=== PATIENT | female | born 1950 | race Caucasian/White ===

== ENCOUNTER → 2022-05-26 08:40 | Outpatient (BNVA) | payer BC, SELFPAY | PROVIDERS: PCP Nurse Practitioner Family; Visit Provider Student in an Organized Health Care Education/Training Program | DX: Z13.89 Encounter for screening for other disorder (principal) ==

== ENCOUNTER 2022-05-26 09:28 | Outpatient (REF) | payer BC, SELFPAY ==
[2022-05-26 10:50] LABS: MANUAL DIFF FLAG NO
[2022-05-26 10:52] LABS: Basophils Absolute Auto 0.1 X10*3/uL (0.0-0.2); Basophils Percent Auto 0.6 % (0-2); Eosinophils Absolute Auto 0.1 X10*3/uL (0.0-0.4); Eosinophils Percent Auto 1.5 % (0-4); Hematocrit 35.1 % (37.0-47.0); Hemoglobin 11.3 g/dl (12.0-16.0); Imm Gran Abs Auto 0.02 X10*3/uL (0.00-0.03); Imm Gran Pct Auto 0.3 % (0.0-0.4); Lymphocytes Absolute Auto 1.2 X10*3/uL (1.2-4.9); Lymphocytes Percent Auto 15.6 % (20-40); Mean Corpuscular HGB Conc 32.2 g/dl (31.0-35.0); Mean Corpuscular Hemoglobin 28.2 pg (27.0-33.0); Mean Corpuscular Volume 87.5 fL (80.0-98.0); Mean Platelet Volume 11.2 fL (9.4-12.3); Monocytes Absolute Auto 0.5 X10*3/uL (0.1-1.2); Monocytes Percent Auto 6.9 % (2-11); Neutrophils Absolute Auto 5.9 x10*3/uL (2.0-8.3); Neutrophils Percent Auto 75.1 % (45-73); Platelet Count 207 X10*3/uL (160-400); Red Blood Count 4.01 X10*6/uL (4.20-5.50); Red Cell Distribution Width 14.2 % (11.0-16.0); White Blood Count 7.9 X10*3/uL (4.8-10.8)
[2022-05-26 11:36] LABS: Erythrocyte Sedimentation Rate 36 MM/HR (0-20)
[2022-05-26 12:29] LABS: Alanine Aminotransferase 12 U/L (0-31); Albumin Level 3.8 g/dL (3.5-5.0); Alkaline Phosphatase 40 U/L (39-117); Anion Gap 12 (12-20); Aspartate Amino Transferase 20 U/L (5-31); Bilirubin Total 0.5 mg/dL (0.0-1.0); Blood Urea Nitrogen 11 mg/dL (9-16); Calcium 9.3 mg/dL (8.4-10.2); Carbon Dioxide 27 mmol/L (22-29); Chloride 102 mmol/L (96-108); Estimated Glomerular Filt Rate > 60; Glucose Random 89 mg/dL (60-115); Potassium 4.4 mmol/L (3.3-5.1); Rheumatoid Factor 105.2 IU/mL (<15.0); Sodium 137 mmol/L (135-145); Total Protein 6.8 g/dL (6.5-8.0)
[2022-05-27 13:58] LABS: Cyclic Citrullinated Peptide >250 UNITS; IgA 282 mg/dL (70-320); IgG 1251 mg/dL (600-1540); IgM 176 mg/dL (50-300)
[2022-05-28 09:11] LABS: HBc Num1 0.13 S/CO (0.00-0.79); HBsAGNum1 0.31 S/CO (0.00-0.99); Hepatitis A Antibody IgM 0.24 Index (0-0.79); Hepatitis B Core Antibody Nonreactive (Nonreactive); Hepatitis B Surface Antigen Negative (Negative); ~HepC Num1 0.16 S/CO (0.00-0.79); ~Hepatitis A Antibody IgM Nonreactive (Nonreactive); ~Hepatitis B Surface Antibody NONREACTIVE (Nonreactive); ~Hepatitis C Antibody Nonreactive (Nonreactive)
[2022-05-28 18:44] LABS: Prot Elec - Albumin 3.7 g/dL (3.8-4.8); Prot Elec - Alpha1 0.4 g/dL (0.2-0.3); Prot Elec - Alpha2 0.7 g/dL (0.5-0.9); Prot Elec - Beta 1 0.4 g/dL (0.4-0.6); Prot Elec - Beta 2 0.3 g/dL (0.2-0.5); Prot Elec - Gamma 1.2 g/dL (0.8-1.7); Prot Elec - Total Protein 6.8 g/dL (6.1-8.1)
[2022-05-28 21:43] LABS: TS Negative Control Passed; TS Panel A 0; TS Panel B 0; TS Positive Control Passed; TSpotTB Negative (Negative)
== END 2022-05-26 09:29 | disposition home or self-care (01) ==
LOC: HO.10HDL 09:28
PROVIDERS: Visit Provider Student in an Organized Health Care Education/Training Program
DX: Z11.7 Encounter for testing for latent tuberculosis infection (principal); M06.9 Rheumatoid arthritis, unspecified; Z79.899 Other long term (current) drug therapy
CPT/HCPCS: 80053; 80220; 82784; 84165; 85025; 85652; 86140; 86200; 86334; 86431; 86481; 86704; 86706; 86709; 86803; 87340

== ENCOUNTER 2022-11-24 13:27 | Outpatient (AMB) | payer BC, SELFPAY ==
[2022-11-24 13:33] VITALS: BP 148/76; PULSE 86; TEMP 36.3; O2SAT 97; BMI 19.1
--- NOTE | 2022-11-24 13:33 | MHC.OFFVIS ---
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 Accompanied by: Self / Same As Patient Allergies acetaminophen [From Vicodin] Allergy (Mild, Verified 11/24/22 13:37) Nausea hydrocodone [From Vicodin] Allergy (Mild, Verified 11/24/22 13:37) Nausea Sulfa (Sulfonamide Antibiotics) Adverse Reaction (Mild, Verified 11/24/22 13:37) Rash Medication List - Last Reconciled 11/24/22 by Rajinder Atkinson MD hydroxychloroquine Take 1 tab once daily 5 days a week and 2 tabs daily 2 days a week leflunomide 20 mg PO DAILY losartan 50 mg PO DAILY sumatriptan succinate 100 mg PO DAILY PRN HPI HPI Comments History of Present Illness Details This is a 72-year-old female with seropositive erosive RA who presents for follow-up. Patient states that she is doing about the same overall. She got a pneumonia infection back in July, she was treated with antibiotics at home. Soon after she developed a flare of her RA and required a prednisone taper which gave her relief. Patient has not been taking hydroxychloroquine for the last 2 months, was waiting for refill. Patient states that her RA is doing about the same. Patient is working with her hands most days and gets aching and stiffness in her hands, she also has pain in her toes. Patient feels that over the last 2-3 years her left hand fingers have been slowly returning ulnarly. Initial history: This is a 72-year-old female with deforming RA presents for evaluation. 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 Patient states she was diagnosed with RA more than 10 years ago. She had been on Plaquenil for 10+ years. She was also started on sulfasalazine for years, she developed a rash, with unclear cause, sulfasalazine was discontinued. She was on methotrexate briefly, per patient discontinued due to side effects. She had been on leflunomide for many years. In 2014 patient came off her meds and developed a flare. Her meds were restarted. Today patient feels well with no complaints except for some foot pain from her bunions. She states that she is able to find comfortable shoes however. Denies any shortness of breath PFSH Medical History Actinic keratosis Anemia, chronic disease Breast cancer Closed fracture of fifth metatarsal bone Degeneration, intervertebral disc, cervicothoracic H/O neoplasm Migraine Neoplasm of breast Osteochondropathy Tubulovillous adenoma Surgical History H/O colonoscopy History of lumpectomy of right breast Family History Son Rheumatoid arthritis Father Diabetes Maternal Aunt Diabetes Paternal Grandmother Diabetes Social History Household Members: None Alcohol intake: current Alcohol intake frequency: a few times a week Patient Tobacco Use Status: Never used Tobacco Review of Systems Musc Reports arthralgias, Reports joint swelling and Reports stiffness Physical Exam Vital Signs: Last Vital Signs Temp 97.3 F 11/24/22 13:33 Pulse 86 11/24/22 13:33 BP 148/76 H 11/24/22 13:33 Pulse Ox 97 11/24/22 13:33 BMI result Body Mass Index 19.1 Const General: cooperative, healthy appearing and comfortable Nutritional Appearance: thin Orientation/consciousness: patient oriented x3 Limitations: no limitations HEENT Head: Yes normocephalic and Yes atraumatic Mouth: moist mucous membranes Resp Effort & Inspection: normal respiratory effort and able to speak in complete sentences Auscultation: clear to auscultation bilaterally Cardio Rate: regular rate Rhythm: regular rhythm Heart sounds: S1 normal heart sound present GI Inspection: No distended Palpation (GI): Soft to palpation and nontender Neuro General: patient oriented x3 Extrem Other: Bilateral hand ulnar deviation worse on the left, synovial thickening of her MCPs. Osteoarthritic changes of both hands with Heberden's and Mack's nodes Bilateral positive MCP squeeze test Bilateral foot fibular deviation & crowding of toes, she has bilateral large bunions worse on the right some erythema. Likely a rheumatoid nodule on top of her left foot bunion. Right 4th MTP joint tenderness Assessment & Plan Assessment & Plan (1) Rheumatoid arthritis: Comment: ++RF+++CCP Deforming. Onset around 2010. On Plaquenil throughout SSZ for years but developed a skin rash MTX briefly, discontinued due to side effects On leflunomide 20 mg for many years Code(s): M06.9 - Rheumatoid arthritis, unspecified Qualifiers: Rheumatoid arthritis location: multiple sites Rheumatoid factor presence: unspecified presence Qualified Code(s): M06.9 - Rheumatoid arthritis, unspecified Plan: This is a 72-year-old female with seropositive erosive RA who presents for follow-up. On hydroxychloroquine 20 mg Twice daily and leflunomide 20 mg daily. Patient continues to have mild joint pain and stiffness, over the years patient has noticed slowly progressive deformity specially of her left hand. Labs showed persistently mildly elevated inflammatory markers. I discussed with patient that her RA is likely not fully controlled and it would be reasonable to add a biologic such as TNF inhibitors. I discussed complications of RA including worsening deformities, the association of chronic inflammation with cardiovascular events. Patient is worried about side effects related to biologics. For now continue hydroxychloroquine but reduce dose to hydroxychloroquine 200 mg daily x5 days and 400 mg x 2 days Continue leflunomide 20 mg daily Labs before next visit in 6 months (2) Encounter for monitoring of hydroxychloroquine therapy: Code(s): Z51.81 - Encounter for therapeutic drug level monitoring; Z79.899 - Other director long term care (current) drug therapy Plan: Patient follows up regularly with Ophthalmology. Was last seen in 2021. Patient will make an appointment to follow-up with her mobile service rv technician (3) High risk medication use: Code(s): Z79.899 - Other [facility] (current) drug therapy Plan: Monitor safety labs while on leflunomide (4) Screening for osteoporosis: Code(s): Z13.820 - Encounter for screening for osteoporosis Plan: Discussed risk of osteoporosis given age and rheumatoid arthritis. Patient stated that she had a bone density scan recently. Advised patient to send us records Plan I spent 35 minutes reviewing patient's chart, evaluating patient, ordering diagnostic workup, counseling patient and documenting in the chart Medications: Changed From hydroxychloroquine 200 mg PO BID To hydroxychloroquine Take 1 tab once daily 5 days a week and 2 tabs daily 2 days a week 108 tabs 1RF Coding Level of Care Code Est Pt Level 4 (97482) Diagnoses Rheumatoid arthritis M06.9 Rheumatoid arthritis location: multiple sites Rheumatoid factor presence: unspecified presence Encounter for monitoring of hydroxychloroquine therapy Z51.81; Z79.899 High risk medication use Z79.899 Screening for osteoporosis Z13.820
== END 2022-11-24 14:21 | disposition home or self-care (01) ==
PROVIDERS: PCP Nurse Practitioner Family; Visit Provider Student in an Organized Health Care Education/Training Program
DX: M06.9 Rheumatoid arthritis, unspecified (principal); Z51.81 Encounter for therapeutic drug level monitoring; Z79.899 Other long term (current) drug therapy; Z13.820 Encounter for screening for osteoporosis
CPT/HCPCS: 99214

== ENCOUNTER → 2022-11-24 13:27 | Outpatient (BNVA) | payer BC, SELFPAY | PROVIDERS: PCP Nurse Practitioner Family; Visit Provider Student in an Organized Health Care Education/Training Program ==

== ENCOUNTER 2023-05-17 13:49 | Outpatient (AMB) | payer BC, SELFPAY ==
--- NOTE | 2023-05-17 14:04 | A.OFFVIS_ITS ---
Intake Vital Signs 05/17/23 14:05 Height 5 ft 7 in Weight 124 lb 12.506 oz BMI 19.5 BP 152/78 H Blood Pressure Location Rt brachial Position Sitting Pulse 78 Pulse Source Pulse Oximeter Pulse Oximetry (%) 98 Oxygen Delivery Method Room Air Intake Visit Reasons: RA Intake Note: Patient last seen 11/24/22 presents today for follow up and test results. 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 Accompanied by: Self / Same As Patient Allergies acetaminophen [From Vicodin] Allergy (Mild, Verified 05/17/23 14:09) Nausea hydrocodone [From Vicodin] Allergy (Mild, Verified 05/17/23 14:09) Nausea Sulfa (Sulfonamide Antibiotics) Adverse Reaction (Mild, Verified 05/17/23 14:09) Rash Medication List - Last Reconciled 05/17/23 by Rajinder Atkinson MD hydroxychloroquine Take 1 tab once daily 5 days a week and 2 tabs daily 2 days a week leflunomide 20 mg PO DAILY losartan 50 mg PO DAILY sumatriptan succinate 100 mg PO DAILY PRN HPI HPI Comments History of Present Illness Details This is a 72-year-old female with seropositive erosive RA who presents for follow-up. Back in the fall she had about 1 month episode when she had aching in her right hand, right wrist, both elbows. This lasted about a month. She was still able to be as active as she usually is. She did not have to take any medications for it. Patient walks 3 miles a day about 3 times a week and did cross skiing this winter. She denies any cough or shortness of breath. Denies any fevers or weight loss. She is doing well overall. Initial history: This is a 72-year-old female with deforming RA presents for evaluation. 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 Patient states she was diagnosed with RA more than 10 years ago. She had been on Plaquenil for 10+ years. She was also started on sulfasalazine for years, she developed a rash, with unclear cause, sulfasalazine was discontinued. She was on methotrexate briefly, per patient discontinued due to side effects. She had been on leflunomide for many years. In 2014 patient came off her meds and developed a flare. Her meds were restarted. Today patient feels well with no complaints except for some foot pain from her bunions. She states that she is able to find comfortable shoes however. Denies any shortness of breath [facility] Medical History Tubulovillous adenoma Neoplasm of breast Osteochondropathy H/O neoplasm Degeneration, intervertebral disc, cervicothoracic Closed fracture of fifth metatarsal bone Anemia, chronic disease Actinic keratosis Migraine Breast cancer Surgical History H/O colonoscopy History of lumpectomy of right breast Family History Son Rheumatoid arthritis Father Diabetes Maternal Aunt Diabetes Paternal Grandmother Diabetes Social History Household Members: None Alcohol intake: current Alcohol intake frequency: a few times a week Patient Tobacco Use Status: Never used Tobacco Review of Systems Card Denies dyspnea Resp Denies cough and Denies dyspnea Musc Reports deformity, Denies arthralgias and Denies joint swelling Physical Exam Vital Signs: Last Vital Signs Pulse 78 05/17/23 14:05 BP 152/78 H 05/17/23 14:05 Pulse Ox 98 05/17/23 14:05 Oxygen Delivery Method Room Air 05/17/23 14:05 BMI result Body Mass Index 19.5 Const General: cooperative, healthy appearing and comfortable Nutritional Appearance: thin Orientation/consciousness: patient oriented x3 Limitations: no limitations HEENT Head: Yes normocephalic and Yes atraumatic Mouth: moist mucous membranes Resp Effort & Inspection: normal respiratory effort and able to speak in complete sentences Auscultation: clear to auscultation bilaterally Cardio Rate: regular rate Rhythm: regular rhythm Heart sounds: S1 normal heart sound present GI Inspection: No distended Palpation (GI): Soft to palpation and nontender Neuro General: patient oriented x3 Extrem Other: Bilateral hand ulnar deviation worse on the left, synovial thickening of her MCPs. Osteoarthritic changes of both hands with Heberden's and Mack's nodes Bilateral foot fibular deviation & crowding of toes, she has bilateral large bunions worse on the right some erythema. Likely a rheumatoid nodule on top of her left foot bunion. Right 4th MTP joint tenderness Assessment & Plan Assessment & Plan (1) Rheumatoid arthritis: Comment: ++RF+++CCP Deforming. Onset around 2010. On Plaquenil throughout SSZ for years but developed a skin rash MTX briefly, discontinued due to side effects On leflunomide 20 mg for many years Code(s): M06.9 - Rheumatoid arthritis, unspecified Qualifiers: Rheumatoid arthritis location: multiple sites Rheumatoid factor presence: unspecified presence Qualified Code(s): M06.9 - Rheumatoid arthritis, unspecified Plan: This is a 72-year-old female with seropositive erosive RA who presents for follow-up. On hydroxychloroquine 200 mg X 5 days a week & 400 mg X 2 days a week and leflunomide 20 mg daily. Patient is doing fairly well. She gets 1 or 2 flares in the year. Discussed with patient that her RA is likely not 100% controlled and adding biologics was discussed. Patient states that she feels she is doing quite well overall and would not like to add any further meds. Continue with current meds. Labs every 3 months. Follow-up in 6 months (2) Encounter for monitoring of hydroxychloroquine therapy: Code(s): Z51.81 - Encounter for therapeutic drug level monitoring; Z79.899 - Other superintendent marine oil terminal (current) drug therapy Plan: Patient follows up regularly with Ophthalmology. Was last seen in 2021. Delio dumas made an appointment with Ophthalmology in August of 2023. Advised patient to ask them to send me the notes (3) High risk medication use: Code(s): Z79.899 - Other skilled nursing (current) drug therapy Plan: Monitor safety labs while on leflunomide (4) Screening for osteoporosis: Code(s): Z13.820 - Encounter for screening for osteoporosis Plan: She stated that she had a bone density scan recently that showed osteopenia. Advised patient to send me records Plan I spent 35 minutes reviewing patient's chart, evaluating patient, ordering diagnostic workup, counseling patient and documenting in the chart Orders: Orders Complete Blood Count Auto Diff Today M06.9 - Rheumatoid arthritis, unspecified, Z51.81 - Encounter for therapeutic drug level monitoring, Z79.899 - Other superintendent marine oil terminal (current) drug therapy C Reactive Protein Today M06.9 - Rheumatoid arthritis, unspecified, Z51.81 - Encounter for therapeutic drug level monitoring, Z79.899 - Other superintendent marine oil terminal (current) drug therapy Erythrocyte Sedimentation Rate Today M06.9 - Rheumatoid arthritis, unspecified, Z51.81 - Encounter for therapeutic drug level monitoring, Z79.899 - Other skilled nursing (current) drug therapy Complete Blood Count Auto Diff Today M06.9 - Rheumatoid arthritis, unspecified, Z51.81 - Encounter for therapeutic drug level monitoring, Z79.899 - Other superintendent marine oil terminal (current) drug therapy Complete Blood Count Auto Diff 11/13/23 M06.9 - Rheumatoid arthritis, unspecified, Z51.81 - Encounter for therapeutic drug level monitoring, Z79.899 - Other skilled nursing (current) drug therapy Comprehensive Met. Panel Today M06.9 - Rheumatoid arthritis, unspecified, Z51.81 - Encounter for therapeutic drug level monitoring, Z79.899 - Other superintendent marine oil terminal (current) drug therapy Comprehensive Met. Panel 08/15/23 M06.9 - Rheumatoid arthritis, unspecified, Z51.81 - Encounter for therapeutic drug level monitoring, Z79.899 - Other superintendent marine oil terminal (current) drug therapy Comprehensive Met. Panel 05/11/24 M06.9 - Rheumatoid arthritis, unspecified, Z51.81 - Encounter for therapeutic drug level monitoring, Z79.899 - Other superintendent marine oil terminal (current) drug therapy Comprehensive Met. Panel 11/07/24 M06.9 - Rheumatoid arthritis, unspecified, Z51.81 - Encounter for therapeutic drug level monitoring, Z79.899 - Other superintendent marine oil terminal (current) drug therapy C Reactive Protein 11/13/23 M06.9 - Rheumatoid arthritis, unspecified, Z51.81 - Encounter for therapeutic drug level monitoring, Z79.899 - Other superintendent marine oil terminal (current) drug therapy C Reactive Protein 08/09/24 M06.9 - Rheumatoid arthritis, unspecified, Z51.81 - Encounter for therapeutic drug level monitoring, Z79.899 - Other skilled nursing (current) drug therapy C Reactive Protein 11/07/24 M06.9 - Rheumatoid arthritis, unspecified, Z51.81 - Encounter for therapeutic drug level monitoring, Z79.899 - Other skilled nursing (current) drug therapy Erythrocyte Sedimentation Rate Today M06.9 - Rheumatoid arthritis, unspecified, Z51.81 - Encounter for therapeutic drug level monitoring, Z79.899 - Other superintendent marine oil terminal (current) drug therapy Erythrocyte Sedimentation Rate 11/13/23 M06.9 - Rheumatoid arthritis, u nspecified, Z51.81 - Encounter for therapeutic drug level monitoring, Z79.899 - Other superintendent marine oil terminal (current) drug therapy Comprehensive Met. Panel Today M06.9 - Rheumatoid arthritis, unspecified, Z51.81 - Encounter for therapeutic drug level monitoring, Z79.899 - Other superintendent marine oil terminal (current) drug therapy Complete Blood Count Auto Diff 08/15/23 M06.9 - Rheumatoid arthritis, unspecified, Z51.81 - Encounter for therapeutic drug level monitoring, Z79.899 - Other superintendent marine oil terminal (current) drug therapy Complete Blood Count Auto Diff 02/11/24 M06.9 - Rheumatoid arthritis, unspecified, Z51.81 - Encounter for therapeutic drug level monitoring, Z79.899 - Other superintendent marine oil terminal (current) drug therapy Complete Blood Count Auto Diff 05/11/24 M06.9 - Rheumatoid arthritis, unspecified, Z51.81 - Encounter for therapeutic drug level monitoring, Z79.899 - Other skilled nursing (current) drug therapy Complete Blood Count Auto Diff 08/09/24 M06.9 - Rheumatoid arthritis, unspecified, Z51.81 - Encounter for therapeutic drug level monitoring, Z79.899 - Other skilled nursing (current) drug therapy Complete Blood Count Auto Diff 11/07/24 M06.9 - Rheumatoid arthritis, unspecified, Z51.81 - Encounter for therapeutic drug level monitoring, Z79.899 - Other superintendent marine oil terminal (current) drug therapy Complete Blood Count Auto Diff 02/05/25 M06.9 - Rheumatoid arthritis, unspecified, Z51.81 - Encounter for therapeutic drug level monitoring, Z79.899 - Other skilled nursing (current) drug therapy Comprehensive Met. Panel 11/13/23 M06.9 - Rheumatoid arthritis, unspecified, Z51.81 - Encounter for therapeutic drug level monitoring, Z79.899 - Other superintendent marine oil terminal (current) drug therapy Comprehensive Met. Panel 02/11/24 M06.9 - Rheumatoid arthritis, unspecified, Z51.81 - Encounter for therapeutic drug level monitoring, Z79.899 - Other superintendent marine oil terminal (current) drug therapy Comprehensive Met. Panel 08/09/24 M06.9 - Rheumatoid arthritis, unspecified, Z51.81 - Encounter for therapeutic drug level monitoring, Z79.899 - Other skilled nursing (current) drug therapy Comprehensive Met. Panel 02/05/25 M06.9 - Rheumatoid arthritis, unspecified, Z51.81 - Encounter for therapeutic drug level monitoring, Z79.899 - Other skilled nursing (current) drug therapy C Reactive Protein Today M06.9 - Rheumatoid arthritis, unspecified, Z51.81 - Encounter for therapeutic drug level monitoring, Z79.899 - Other skilled nursing (current) drug therapy C Reactive Protein 08/15/23 M06.9 - Rheumatoid arthritis, unspecified, Z51.81 - Encounter for therapeutic drug level monitoring, Z79.899 - Other superintendent marine oil terminal (current) drug therapy C Reactive Protein 02/11/24 M06.9 - Rheumatoid arthritis, unspecified, Z51.81 - Encounter for therapeutic drug level monitoring, Z79.899 - Other skilled nursing (current) drug therapy C Reactive Protein 05/11/24 M06.9 - Rheumatoid arthritis, unspecified, Z51.81 - Encounter for therapeutic drug level monitoring, Z79.899 - Other skilled nursing (current) drug therapy C Reactive Protein 02/05/25 M06.9 - Rheumatoid arthritis, unspecified, Z51.81 - Encounter for therapeutic drug level monitoring, Z79.899 - Other skilled nursing (current) drug therapy Erythrocyte Sedimentation Rate 08/15/23 M06.9 - Rheumatoid arthritis, unspecif ied, Z51.81 - Encounter for therapeutic drug level monitoring, Z79.899 - Other skilled nursing (current) drug therapy Erythrocyte Sedimentation Rate 02/11/24 M06.9 - Rheumatoid arthritis, unspecified, Z51.81 - Encounter for therapeutic drug level monitoring, Z79.899 - Other superintendent marine oil terminal (current) drug therapy Erythrocyte Sedimentation Rate 05/11/24 M06.9 - Rheumatoid arthritis, unspecified, Z51.81 - Encounter for therapeutic drug level monitoring, Z79.899 - Other superintendent marine oil terminal (current) drug therapy Erythrocyte Sedimentation Rate 08/09/24 M06.9 - Rheumatoid arthritis, unspecified, Z51.81 - Encounter for therapeutic drug level monitoring, Z79.899 - Other superintendent marine oil terminal (current) drug therapy Erythrocyte Sedimentation Rate 11/07/24 M06.9 - Rheumatoid arthritis, unspecified, Z51.81 - Encounter for therapeutic drug level monitoring, Z79.899 - Other skilled nursing (current) drug therapy Erythrocyte Sedimentation Rate 02/05/25 M06.9 - Rheumatoid arthritis, unspecified, Z51.81 - Encounter for therapeutic drug level monitoring, Z79.899 - Other superintendent marine oil terminal (current) drug therapy Medications: Refilled leflunomide 20 mg PO DAILY 90 tabs 1RF Coding Level of Care Code Est Pt Level 4 (71159) Diagnoses Rheumatoid arthritis involving multiple sites, unspecified whether rheumatoid factor present M06.9 Rheumatoid arthritis location: multiple sites Rheumatoid factor presence: unspecified presence Encounter for monitoring of hydroxychloroquine therapy Z51.81; Z79.899 High risk medication use Z79.899 Screening for osteoporosis Z13.820
[2023-05-17 14:05] VITALS: BP 152/78; PULSE 78; O2SAT 98; BMI 19.5
== END 2023-05-17 14:41 | disposition home or self-care (01) ==
PROVIDERS: PCP Nurse Practitioner Family; Visit Provider Student in an Organized Health Care Education/Training Program
DX: M06.9 Rheumatoid arthritis, unspecified (principal); Z51.81 Encounter for therapeutic drug level monitoring; Z79.899 Other long term (current) drug therapy; Z13.820 Encounter for screening for osteoporosis
CPT/HCPCS: 99214

== ENCOUNTER → 2023-05-17 13:49 | Outpatient (BNVA) | payer BC, SELFPAY | PROVIDERS: PCP Nurse Practitioner Family; Visit Provider Student in an Organized Health Care Education/Training Program ==

== ENCOUNTER 2023-11-09 10:29 | Outpatient (AMB) | payer BC, SELFPAY ==
[2023-11-09 10:48] VITALS: BP 138/72; PULSE 89; O2SAT 98; BMI 19.7
--- NOTE | 2023-11-09 10:48 | MHC.OFFVIS ---
Vital Signs 11/09/23 10:48 Height 5 ft 7 in Weight 126 lb 1.671 oz BMI 19.7 BP 138/72 Blood Pressure Location Lt brachial Position Sitting Pulse 89 Pulse Source Pulse Oximeter Pulse Oximetry (%) 98 Oxygen Delivery Method Room Air Intake Visit Reasons: RA/CM Intake Note: Patient is here for follow up on RA. Allergies acetaminophen [From Vicodin] Allergy (Mild, Verified 11/09/23 10:50) Nausea hydrocodone [From Vicodin] Allergy (Mild, Verified 11/09/23 10:50) Nausea lisinopril Adverse Reaction (Mild, Verified 11/09/23 10:51) lips swelling Sulfa (Sulfonamide Antibiotics) Adverse Reaction (Mild, Verified 11/09/23 10:50) Rash Medication List - Last Reconciled 11/09/23 by Rajinder Atkinson MD hydroxychloroquine Take 1 tab once daily 5 days a week and 2 tabs daily 2 days a week leflunomide 20 mg PO DAILY losartan 50 mg PO DAILY sumatriptan succinate 100 mg PO DAILY PRN HPI Comments Details: This is a 73-year-old female with seropositive erosive RA who presents for follow-up. She states that she is doing about the same overall. Denies any joint pain or swelling. She has noticed some progressive deformity in her right hand, she has space now in between her right 3rd and 4th fingers. Otherwise she has not noted any deformities. She states that she aggravates her carpal tunnel symptoms with tingling and numbness of her left forearm with activity. She does plenty of gardening. Initial history: This is a 72-year-old female with deforming RA presents for evaluation. Her previous resident care spec left the practice. Patient states she was diagnosed with RA more than 10 years ago. She had been on Plaquenil for 10+ years. She was also started on sulfasalazine for years, she developed a rash, with unclear cause, sulfasalazine was discontinued. She was on methotrexate briefly, per patient discontinued due to side effects. She had been on leflunomide for many years. In 2014 patient came off her meds and developed a flare. Her meds were restarted. Today patient feels well with no complaints except for some foot pain from her bunions. She states that she is able to find comfortable shoes however. Denies any shortness of breath [facility] Medical History (Updated 11/09/23 @ 11:20 by Rajinder Atkinson MD) Tubulovillous adenoma Neoplasm of breast Osteochondropathy H/O neoplasm Degeneration, intervertebral disc, cervicothoracic Closed fracture of fifth metatarsal bone Anemia, chronic disease Actinic keratosis Migraine Breast cancer Surgical History H/O colonoscopy History of lumpectomy of right breast Family History Son Rheumatoid arthritis Father Diabetes Maternal Aunt Diabetes Paternal Grandmother Diabetes Social History Household Members: None Alcohol intake: current Alcohol intake frequency: a few times a week Patient Tobacco Use Status: Never used Tobacco Female Reproductive History Menstrual Total pregnancies: 1 Full term: 1 Number of Living Children: 1 Review of Systems Card Denies dyspnea Resp Denies cough and Denies dyspnea Musc Reports deformity, Denies arthralgias, Denies joint swelling, Reports numbness and Reports tingling Neuro Reports numbness and Reports tingling Physical Exam Vital Signs: Last Vital Signs Pulse 89 11/09/23 10:48 BP 138/72 11/09/23 10:48 Pulse Ox 98 11/09/23 10:48 Oxygen Delivery Method Room Air 11/09/23 10:48 BMI result Body Mass Index 19.7 Const General: cooperative, healthy appearing and comfortable Nutritional Appearance: thin Orientation/consciousness: patient oriented x3 Limitations: no limitations HEENT Head: Yes normocephalic and Yes atraumatic Mouth: moist mucous membranes Resp Effort & Inspection: normal respiratory effort and able to speak in complete sentences Auscultation: clear to auscultation bilaterally Cardio Rate: regular rate Rhythm: regular rhythm GI Inspection: No distended Palpation (GI): Soft to palpation and nontender Neuro General: patient oriented x3 Extrem Other: Bilateral hand ulnar deviation worse on the left, synovial thickening of her MCPs. Osteoarthritic changes of both hands with Heberden's and Mack's nodes Negative Tinel test and Durkan's test bilaterally Bilateral reduced hand interior designer strength Bilateral foot fibular deviation & crowding of toes, she has bilateral large bunions worse on the right some erythema. Likely a rheumatoid nodule on top of her left foot bunion. Assessment & Plan Assessment & Plan (1) Rheumatoid arthritis: Comment: ++RF+++CCP Deforming. Onset around 2010. On Plaquenil throughout [facility] for years but developed a skin rash MTX briefly, discontinued due to side effects On leflunomide 20 mg for many years Code(s): M06.9 - Rheumatoid arthritis, unspecified Category: Medical Qualifiers: Rheumatoid arthritis location: multiple sites Rheumatoid factor presence: unspecified presence Qualified Code(s): M06.9 - Rheumatoid arthritis, unspecified Plan: This is a 73-year-old female with seropositive erosive RA who presents for follow-up. On hydroxychloroquine 200 mg X 5 days a week & 400 mg X 2 days a week and leflunomide 20 mg daily. Patient is doing fairly well. She gets 1 or 2 flares in the year. Discussed with patient that her RA is likely not 100% controlled and adding biologics was discussed. Patient states that she feels she is doing quite well overall and would not like to add any further meds. Which I think is reasonable Continue with current meds. Labs every 3 months. Follow-up in 6 months (2) Encounter for monitoring of hydroxychloroquine therapy: Code(s): Z51.81 - Encounter for therapeutic drug level monitoring; Z79.899 - Other supervisor intermediates (current) drug therapy Category: Medical Plan: Patient follows up regularly with Ophthalmology. She states that she was recently evaluated by vice president investor relations in [place] Dr. Beck Hammond. We will attempt to retrieve records (3) High risk medication use: Code(s): Z79.899 - Other supervisor intermediates (current) drug therapy Category: Medical Plan: Monitor safety labs while on leflunomide (4) Osteopenia: Code(s): M85.80 - Other specified disorders of bone density and structure, unspecified site Category: Medical Qualifiers: Osteopenia location: multiple sites Qualified Code(s): M85.89 - Other specified disorders of bone density and structure, multiple sites Plan: DEXA 04/2023 showed osteopenia of multiple sites with a low FRAX score. Advised patient to take calcium and vitamin-D and some weight-bearing exercises Plan I spent 26 minutes reviewing patient's chart, evaluating patient, ordering diagnostic workup, counseling patient and documenting in the chart Medications: Refilled leflunomide 20 mg PO DAILY 90 tabs 1RF hydroxychloroquine Take 1 tab once daily 5 days a week and 2 tabs daily 2 days a week 108 tabs 1RF Coding Level of Care Code Est Pt Level 4 (44037) Diagnoses Rheumatoid arthritis involving multiple sites, unspecified whether rheumatoid factor present M06.9 Rheumatoid arthritis location: multiple sites Rheumatoid factor presence: unspecified presence Encounter for monitoring of hydroxychloroquine therapy Z51.81; Z79.899 High risk medication use Z79.899 Osteopenia of multiple sites M85.89 Osteopenia location: multiple sites
== END 2023-11-09 11:15 | disposition home or self-care (01) ==
PROVIDERS: PCP Nurse Practitioner Family; Visit Provider Student in an Organized Health Care Education/Training Program
DX: M06.9 Rheumatoid arthritis, unspecified (principal); Z51.81 Encounter for therapeutic drug level monitoring; Z79.899 Other long term (current) drug therapy; M85.89 Other specified disorders of bone density and structure, multiple sites
CPT/HCPCS: 99214

== ENCOUNTER → 2023-11-09 10:29 | Outpatient (BNVA) | payer BC, SELFPAY | PROVIDERS: PCP Nurse Practitioner Family; Visit Provider Student in an Organized Health Care Education/Training Program ==

== ENCOUNTER 2024-05-10 11:52 | Outpatient (REF) | payer BC, SELFPAY ==
--- OUTSIDE RECORDS SUMMARY | 2024-05-10 12:19 | XMS_ITS | Continuity of Care Document ---
Author Organization [facility] Medicine Address [address] [place] [address]- Care Team Providers Care Dial Maker Name Role Phone Lawson PINZON, John Primary Care Physician [phone] Encounter [facility] Date(s): 03/31/24 - 04/30/24 [facility] Medicine [address] [place] [phone]- Encounter Type: Triage Allergies, Adverse Reactions, Alerts Substance Criticality Severity Reaction Reaction Severity Status azithromycin Eruption Active lisinopril angio-edema Active sulfa drugs Active Vicodin nausea, HAs. Active Immunizations Given and Recorded Vaccine Date Status Refusal Reason SARS-CoV-2(COVID-19)mRNA-LNP vac([id number]) 12/21/23 Recorded RSV vaccine preF3, recombinant 11/17/23 Recorded influenza virus vaccine, inactivated 11/17/23 Deangelo rded influenza virus vaccine, inactivated 11/16/22 Deangelo rded influenza virus vaccine, inactivated 02/10/22 Give n influenza virus vaccine, inactivated 01/08/21 Deangelo rded influenza virus vaccine, inactivated 11/06/20 Deangelo rded influenza virus vaccine, inactivated 01/04/18 Deangelo rded influenza virus vaccine, inactivated 03/03/17 Deangelo rded influenza virus vaccine, inactivated 02/15/17 Deangelo rded pneumococcal 20-valent conjugate vaccine 12/07/22 Recorded zoster vaccine, inactivated 11/16/22 Recorded zoster vaccine, inactivated 09/08/22 Recorded [id number] bivalent booster vax 09/08/22 Recorded tetanus-diphtheria toxoids (Td) 02/10/22 Given SARS-CoV-2 (COVID-19) mRNA-1273 vaccine 07/21/21 R ecorded SARS-CoV-2 (COVID-19) mRNA-1273 vaccine 02/03/21 R ecorded SARS-CoV-2 (COVID-19) mRNA-1273 vaccine 12/15/20 R ecorded SARS-CoV-2 (COVID-19) mRNA-1273 vaccine 06/16/20 G iven SARS-CoV-2 (COVID-19) mRNA-1273 vaccine 06/01/20 R ecorded SARS-CoV-2 (COVID-19) mRNA-1273 vaccine 05/19/20 G iven SARS-CoV-2 (COVID-19) mRNA-1273 vaccine 04/28/20 R ecorded Zoster Vaccine Live 08/10/17 Recorded pneumococcal 23-valent vaccine 1 05/30/17 Recorded tetanus/diphtheria/pertussis, acel(Tdap) 2 12/10/09 Recorded 1Result Comment: Track 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 2Result Comment: Track Laminating Machine Tender: [employer] Medications Aerochamber See Instructions, # 1 each, Maintenance, use with inhaler, 03/02/24 1:13:00 PM EST, Supply, 169.4, cm, 02/03/24 15:21:00 EST, Height, 58.7, kg, 01/30/24 15:38:00 EST, Dry Weight Start Date: 03/02/24 Status: Ordered Quantity: 1.0 Unit: each Repeat number: 1 Albuterol (Eqv-ProAir HFA) 90 mcg/inh inhalation aerosol 2 puffs, Inhalation, Every 6 hours, # 6.7 Gm, 0 Refills, Maintenance, 03/02/24 1:12:00 PM EST, [facility] #[id number], Partial fill upon patient request if the prescription is for a schedule II opioid drug., 2 puffs Inhalation Every 6 hours, 169.4, cm, 02/03/24 15:21:00 EST, Height, 58.7, kg, 01/30/24 15:38:00 EST, Dry Weight Start Date: 03/02/24 Status: Ordered Quantity: 6.7 Unit: g Repeat number: 1 azithromycin 250 mg oral tablet 1 pack/packet, By Mouth, Once, # 6 tablet, 0 Refills, Soft Stop, 03/27/24 12:19:00 PM EST, Tablet, [facility] #[id number], Partial fill upon patient request if the prescription is for a schedule II opioid drug., 169.4, cm, 03/27/24 10:53:00 EST, Height, 58.7, kg, 01/30/24 15:38:00 EST, Dry Weight Start Date: 03/27/24 Status: Ordered Quantity: 6.0 Unit: tablet Repeat number: 1 Incentive Spirometer Incentive Spirometer, See Instructions, # 1 each, Refills 0, Tot. Refills 0, Maintenance, use 4-6 times per day as directed, 03/02/24 1:13:00 PM EST, Supply, 169.4, cm, 02/03/24 15:21:00 EST, Height, 58.7, kg, 01/30/24 15:38:00 EST, Dry Weight Start Date: 03/02/24 Status: Ordered Quantity: 1.0 Unit: each Repeat number: 1 leflunomide 10 mg oral tablet 1 Unknown, 0 Refills, 04/29/20 12:46:00 PM EST, Partial fill upon patient request if the prescriptionis for a schedule II opioid drug. Start Date: 04/29/20 Status: Ordered Repeat number: 1 losartan 50 mg oral tablet 50 mg, 1, tablet, By Mouth, Daily, # 90 tablet, Refills 1, Tot. Refills 1, Maintenance, 04/20/24 5:19:00 PM EST, Route to Pharmacy Electronically, [facility] #[id number], Partial fill upon patientrequest if the prescription is for a schedule II opioid drug., 169.4, cm, 04/06/24 13:56:00 EST, Height, 58.7, kg, 01/30/24 15:38:00 EST, Dry Weight Start Date: 04/20/24 Status: Ordered Quantity: 90.0 Unit: tablet Repeat number: 2 LOSARTAN 50MG TABLETS LOSARTAN 50MG TABLETS, 1, tablet, By Mouth, Daily, # 90 tablet, 0 Refills, Maintenance, 01/20/24 10:24:00 AM EDT, 169.4, cm, 04/27/23 13:59:00 EST, Height, 55.2, kg, 05/21/22 12:35:00 EST, Dry Weight Start Date: 01/20/24 Status: Ordered Quantity: 90.0 Unit: tablet Repeat number: 1 pantoprazole 40 mg oral delayed release tablet 1 tablet = 40 mg, By Mouth, Daily, # 30 tablet, 0 Refills, Maintenance, 02/03/24 3:49:00 PM EST, EC Tablet, 169.4, cm, 02/03/24 15:21:00 EST, Height, 58.7, kg, 01/30/24 15:38:00 EST, Dry Weight Start Date: 02/03/24 Status: Ordered Quantity: 30.0 Unit: tablet Repeat number: 1 Indication: Disease of pericardium, unspecified Plaquenil Tablet 400 mg, By Mouth, Daily, Maintenance, 10/19/10 10:58:18 AM EDT Start Date: 10/19/10 Status: Ordered Repeat number: 1 SUMAtriptan 100 mg oral tablet See Instructions, TAKE 1 TABLET BY MOUTH AT ONSET OF HEADACHE. MAY REPEAT DOSE IN 2 HOURS NEEDED. DO NOT TAKE MORE THAN 2 TABLETS IN 24 HOUR PERIOD, # 27 tablet, 1 Refills, Maintenance, 04/03/24 2:38:00 PM EST, [facility] #[id number], 169.4, cm, 03/27/24 10:53:00 EST, Height, 58.7, kg, 01/30/24 15:38:00 EST, Dry Weight Start Date: 04/03/24 Status: Ordered Quantity: 27.0 Unit: tablet Repeat number: 2 Problem List Condition Confirmation Course Effective Dates Status Health Status Informant Actinic keratosis Confirmed Active Anemia of chronic disease Confirmed Active Breast cancer Confirmed Active Degeneration of intervertebral disc Confirmed Active Migraine Confirmed Active Pulmonary nodule Confirmed Active Osteochondropathy Confirmed Active Personal history of primary malignant neoplasm of breast Confirmed Active Rheumatoid arthritis Confirmed Active Tubulovillous adenoma Confirmed Active Social History Social History Type Response Smoking Status Former smoker 1 entered on: 03/05/13 Sex Sex Representation Female (finding) 1quit in 1992 Patient Care team information Care Team Personnel Name: John Pathak NP Position: S PCO Associate Professional Member Role: PCP Address: [address] [place] [address] Telecom: Care Team Related Persons Name: SANTO HARVEY Name: SARAH BELTRE Insurance Providers Guarantor name: JOEL HARVEY Health Plan Information #: 1 Payer: NA Member Number: NA Policy Number: NA Group Number: NA
--- OUTSIDE RECORDS SUMMARY | 2024-05-10 12:19 | XMS_ITS | Continuity of Care Document ---
Author Organization [facility] ter Address [address] [place] [phone]- Care Team Providers Care Cyber Workforce Developer And Manager Name Role Phone Lawson PINZON, John Primary Care Physician Encounter [facility] Date(s): 03/12/24 - 04/11/[address] [address] Encounter Type: Triage Allergies, Adverse Reactions, Alerts Substance Criticality Severity Reaction Reaction Severity Status azithromycin Eruption Active lisinopril angio-edema Active sulfa drugs Active Vicodin nausea, HAs. 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 2Result Comment: Health Inspector: [employer] Medications Aerochamber See Instructions, # 1 [...] 0 Refills, Maintenance, 03/02/24 1:12:00 PM EST, [facility] #[id number], Partial fill upon patient request if the [...] Soft Stop, 03/27/24 12:19:00 PM EST, Tablet, [facility] #[id number], Partial fill upon patient request if the [...] tablet, Refills 1, Tot. Refills 1, Maintenance, 08/17/23 3:13:00 PM EDT, Route to Pharmacy Electronically, [facility] #[id number], Partial fill upon patientrequest if the prescription is for a schedule II opioid drug., 169.4, cm, 04/27/23 13:59:00 EST, Height, 55.2, kg, 05/21/22 12:35:00 EST, Dry Weight Start Date: 08/17/23 Status: Ordered Quantity: 90.0 Unit: tablet Repeat [...] 1 Refills, Maintenance, 04/03/24 2:38:00 PM EST, [facility] #[id number], 169.4, cm, 03/27/24 10:53:00 EST, Height, 58.7, [...] PCO Associate Professional Member Role: PCP Address: [address] [place] [address]- Telecom: Care Team Related Persons Name: SANTO HARVEY Name: SARAH BELTRE Insurance Providers Guarantor name: JOEL HARVEY Health Plan Information #: 1 Payer: NA Member Number: NA Policy Number: NA Group Number: NA
--- OUTSIDE RECORDS SUMMARY | 2024-05-10 12:19 | XMS_ITS | Continuity of Care Document ---
Author Organization [facility] Medicine Address [address] [place] [address]- Care Team Providers Care Clamp Truck Driver Name Role Phone Lawson PINZON, John Primary Care Physician Encounter [facility] Date(s): 03/26/24 - 04/25/24 [facility] Medicine [address] [place] [phone]- Encounter Type: Triage Allergies, Adverse Reactions, Alerts Substance Criticality Severity Reaction Reaction Severity Status azithromycin Eruption Active lisinopril angio-edema Active sulfa drugs Active Vicodin nausea, HAs. 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 2Result Comment: Traffic Warehouse Supervisor: [employer] Medications Aerochamber See Instructions, # 1 [...] 0 Refills, Maintenance, 03/02/24 1:12:00 PM EST, [facility] #[id number], Partial fill upon patient request if the [...] Soft Stop, 03/27/24 12:19:00 PM EST, Tablet, [facility] #[id number], Partial fill upon patient request if the [...] 5:19:00 PM EST, Route to Pharmacy Electronically, [facility] #[id number], Partial fill upon patientrequest if the prescription [...] 1 Refills, Maintenance, 04/03/24 2:38:00 PM EST, [facility] #[id number], 169.4, cm, 03/27/24 10:53:00 EST, Height, 58.7, [...] PCO Associate Professional Member Role: PCP Address: [address] [place] [address] Telecom: Care Team Related Persons Name: SANTO HARVEY Name: SARAH BELTRE Insurance Providers Guarantor name: JOEL HARVEY Health Plan Information #: 1 Payer: NA Member Number: NA Policy Number: NA Group Number: NA
--- OUTSIDE RECORDS SUMMARY | 2024-05-10 12:19 | XMS_ITS | Continuity of Care Document ---
Author Organization [facility] Medicine Address [address] [place] [address]- Care Team Providers Care Diesel Mechanic Apprentice Name Role Phone Lawson PINZON, John Primary Care Physician Encounter [facility] Date(s): 04/01/24 - 05/01/24 [facility] Medicine [address] [place] [address]- Encounter Type: Triage Allergies, Adverse Reactions, Alerts Substance Criticality Severity Reaction Reaction Severity Status azithromycin Eruption Active lisinopril angio-edema Active sulfa drugs Active Vicodin nausea, HAs. 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: [employer] Medications Aerochamber See Instructions, # 1 [...] 0 Refills, Maintenance, 03/02/24 1:12:00 PM EST, [facility] #[id number], Partial fill upon patient request if the [...] Soft Stop, 03/27/24 12:19:00 PM EST, Tablet, [facility] #[id number], Partial fill upon patient request if the [...] 5:19:00 PM EST, Route to Pharmacy Electronically, [facility] #[id number], Partial fill upon patientrequest if the prescription [...] 1 Refills, Maintenance, 04/03/24 2:38:00 PM EST, [facility] #[id number], 169.4, cm, 03/27/24 10:53:00 EST, Height, 58.7, [...] PCO Associate Professional Member Role: PCP Address: [address] [place] [address] Telecom: Care Team Related Persons Name: SANTO HARVEY Name: SARAH BELTRE Insurance Providers Guarantor name: JOEL HARVEY Health Plan Information #: 1 Payer: NA Member Number: NA Policy Number: NA Group Number: NA
--- OUTSIDE RECORDS SUMMARY | 2024-05-10 12:19 | XMS_ITS | Continuity of Care Document ---
Author Organization [facility] ter Address [address] [place] [address]- Care Team Providers Care Collector Of Aquarium Specimens Name Role Phone Lawson PINZON, John Primary Care Physician [phone] [place] [facility] [place](s[place] 03/26/[place] - 04/25/[address] [address] Encounter Type: Triage Allergies, Adverse Reactions, Alerts Substance Criticality Severity Reaction Reaction Severity Status azithromycin Eruption Active lisinopril angio-edema Active sulfa drugs Active Vicodin nausea, HAs. 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 2Result Comment: Salvager: [employer] Medications Aerochamber See Instructions, # 1 [...] 0 Refills, Maintenance, 03/02/24 1:12:00 PM EST, [facility] #[id number], Partial fill upon patient request if the [...] Soft Stop, 03/27/24 12:19:00 PM EST, Tablet, [id number], Partial fill upon patient request if the [...] 5:19:00 PM EST, Route to Pharmacy Electronically, [facility] #[id number], Partial fill upon patientrequest if the prescription [...] 1 Refills, Maintenance, 04/03/24 2:38:00 PM EST, [facility] #[id number], 169.4, cm, 03/27/24 10:53:00 EST, Height, 58.7, [...] PCO Associate Professional Member Role: PCP Address: [address] [place] [address] Telecom: Care Team Related Persons Name: SANTO HARVEY Name: SARAH BELTRE Insurance Providers Guarantor name: JOEL HARVEY [facility] Plan Information #: 1 Payer: NA Member Number: NA Policy Number: NA Group Number: NA
[2024-05-10 12:20] LABS: MANUAL DIFF FLAG NO
--- OUTSIDE RECORDS SUMMARY | 2024-05-10 12:20 | XMS_ITS | Data Portability ---
Author Organization [facility], FORMERLY [facility] Address [address] [place] [address] Care Team Providers Care Co Chairman Name Role Phone WILFRIDO MEDRANO Reconcilement Clerk THO MCDERMOTT Primary Care Provider KADE OCHOA Farmhand Assessment Encounter Date Assessment Date Assessment LastModified by Organization Details LastModified Time 04/18/2020 04/18/2020 phone visit 12 min Not available 04/21/2020 10:17:53 08/12/2020 08/12/2020 phone visit 14 min Not available 08/13/2020 07:49:17 Plan of Treatment Reminders Order Date Submit Date Provider Last Modified By Organization Details Last Modified Time Details Appointments None recorded. Lab C-reactive protein, quantitativ e, serum or plasma 2021 [facility], [address] [place] [address], [id number], 10:26:37 CMP, serum or plasma 2021 [facility], [address] [place] [address], [id number], 10:26:35 erythrocyte sedimentati on rate by westergren method 2021 [facility], [address] [place] [address], [id number], 10:37:15 unlisted lab - CBC w/o auto diff 2021 022 [facility], [address] [place] [address], [id number], 16:56:47 unlisted lab - CBC w/o auto diff [address] [facility] [address] [facility], [address] [place] [address], [id number], 3 15:55:14 CMP, serum or plasma [address] [facility] [address] [facility], [address] [place] [address], [id number], 3 15:55:32 C-reactive protein, quantitativ e, serum or plasma [address] [facility] [address] [facility], [address] [place] [address], [id number], 3 15:55:01 erythrocyte sedimentati on rate by westergren method [address] [facility] [address] [facility], [address] [place] [address], [id number], 3 15:54:45 C-reactive protein, quantitativ e, serum or plasma 2021 022 [facility], [address] [place] [address], [id number], 2 10:10:10 CMP, serum or plasma 2021 022 [facility], [address] [place] [address], [id number], 2 10:00:15 erythrocyte sedimentati on rate by westergren method 2021 022 [facility], [address] [place] [address], [id number], 2 12:56:03 unlisted lab - CBC w/o auto diff 2021 [facility], [address] [place] [address], [id number], 11:01:34 unlisted lab - CBC w/o auto diff 2021 [facility], [address] [place] [address], [id number], 15:24:42 erythrocyte sedimentati on rate by westergren method 2021 [facility], [address] [place] [address], 97634, 16:42:49 CMP, serum or plasma 2021 [facility], [address] [place] [address], [id number], 11:07:36 C-reactive protein, quantitativ e, serum or plasma 2021 [facility], [address] [place] [address], [id number], 11:07:37 Referral None recorded. Procedures None recorded. Surgeries None recorded. Imaging XR, hand - F/u for RA. Compare. 2020 [facility] ([facility]), [address], [place], [address], 14:02:25 Medication Orders leflunomide 20 mg tablet 2021 022 [facility][id number], [address] [place], [place], [id number], 3 09:11:01 hydroxychlo roquine 200 mg tablet 2021 022 [facility] #[id number], [address] [place], [place], [id number], 3 09:10:57 leflunomide 20 mg tablet 2021 022 [place] #[id number], [address] [place], [id number], 3 09:11:01 hydroxychlo roquine 200 mg tablet 2021 022 [place] [facility] #[id number], [address], [place], [place], [id number], 3 09:10:57 leflunomide 20 mg tablet 2020 021 [place] [facility] #[id number], [address], [place], [place], [id number], 3 09:11:01 hydroxychlo roquine 200 mg tablet 2020 021 [place] [facility] #[id number], [address], [place], [place], [id number], 3 09:10:57 Patient TargetsNo targets recorded. Patient InstructionsNo instructions recorded. Reason for Referral None Reported. Results Created Date Observation Date Name Description Value Unit Range Abnormal Flag Note LastModifiedBy Organization Detail LastModifiedTime 04/18/1904/18/2020 CBC WBC 5.43 K/??L 3.98-1 0.04 Not Available [address], [address], 04/18/2020 17:07:37 04/18/19 21 04/18/2020 CBC RBC 4.36 M/??L 3.93-5 .22 Not Available [address], 39664, 04/18/2020 17:07:37 04/18/19 21 04/18/2020 CBC HGB 12.2 g/dL 11.2-1 5.7 Not Available [address], 92340, 04/18/2020 17:07:37 04/18/1904/18/2020 CBC HCT 38.5 % 34.1-4 4.9 Not Available [address], 98441, 04/18/2020 17:07:37 04/18/19 21 04/18/2020 CBC MCV 88.3 fL 79.4-9 4.8 Not Available [address], 97261, 04/18/2020 17:07:37 04/18/1904/18/2020 CBC MCH 28.0 pg 25.6-3 2.2 Not Available [address], 43464, 04/18/2020 17:07:37 04/18/1904/18/2020 CBC MCHC 31.7 g/dL 32.2-3 5.5 low Not Available [address], 59695, 04/18/2020 17:07:37 04/18/1904/18/2020 CBC plt 230 K/??L 182-36 9 Not Available [address], 26101, 04/18/2020 17:07:37 04/18/1904/18/2020 CBC MPV 11.9 fL 9.4-12 .3 Not Available [address], 52011, 04/18/2020 17:07:37 04/18/1904/18/2020 CBC neut% 64.8 % 34.0-7 1.1 Not Available [address], 31045, 04/18/2020 17:07:37 04/18/192021 CBC neut# 3.52 1.56-6 .13 Not Available [address], 72568, 04/18/2020 17:07:37 04/18/19 21 04/18/2020 CBC lymph % 22.8 % 19.3-5 1.7 Not Available [address], 90221, 04/18/2020 17:07:37 04/18/19 21 04/18/2020 CBC lymph # 1.24 K/??L 1.18-3 .74 Not Available [address], 96755, 04/18/2020 17:07:37 04/18/19 21 04/18/2020 CBC mono% 9.2 % 4.7-12 .5 Not Available [address], 30858, 04/18/2020 17:07:37 04/18/19 21 04/18/2020 CBC mono# 0.50 0.24-0 .56 Not Available [address], 72926, 04/18/2020 17:07:37 04/18/19 21 04/18/2020 CBC eo% 2.4 % 0.7-5. 8 Not Available [address], 85426, 04/18/2020 17:07:37 04/18/19 21 04/18/2020 CBC eo# 0.13 0.04-0 .36 Not Available [address], 60166, 04/18/2020 17:07:37 04/18/19 21 04/18/2020 CBC baso% 0.6 % 0.1-1. 2 Not Available [address], 26392, 04/18/2020 17:07:37 04/18/19 21 04/18/2020 CBC baso# 0.03 0.00-0 .08 Not Available [address], 39423, 04/18/2020 17:07:37 04/18/19 21 04/18/2020 CBC RDW-CV 13.6 % 11.7-1 4.4 Not Available [address], 01244, 04/18/2020 17:07:37 04/18/19 21 04/18/2020 CBC Ig% 0.200 % 0.000- 1.500 Ig % >0.5 Indic ates possi ble Left Shift Not Available [address], 50228, 04/18/2020 17:07:37 04/18/19 21 04/18/2020 CBC Ig# 0.010 0.000- 0.093 Not Available [address], 44623, 04/18/2020 17:07:37 04/18/19 21 04/18/2020 CBC NRBC% 0.0 % 0.0-0. 2 Not Available [address], 96172, 04/18/2020 17:07:37 04/18/19 21 04/18/2020 CBC NRBC# 0.000 0.000- 0.012 Not Available [address], 00018, 04/18/2020 17:07:37 04/18/19 21 04/18/2020 eryth rocyt e sedim entat ion rate by bashir bhatt sed rate 12.0 0.0-15 .0 Not Available [address], 11318, 04/18/2020 17:59:26 04/18/19 21 04/21/2020 hepat ic funct ion panel , serum total protein 6.9 g/dL 6.4-8. 2 Not Available [address], 84545, 04/21/2020 13:12:03 04/18/19 21 04/21/2020 hepat ic funct ion panel , serum albumin 3.7 g/dL 3.4-5. 0 Not Available [address], 11611, 04/21/2020 13:12:03 04/18/19 21 04/21/2020 hepat ic funct ion panel , serum globulin 3.2 g/dL Not Available [address], 84289, 04/21/2020 13:12:03 04/18/19 21 04/21/2020 hepat ic funct ion panel , serum A/G 1.2 ratio 0.8-2. 0 Not Available [address], 02548, 04/21/2020 13:12:03 04/18/19 21 04/21/2020 hepat ic funct ion panel , serum total bilirubin 0.20 mg/dL 0.00-1 .00 Not Available [address], 67374, 04/21/2020 13:12:03 04/18/19 21 04/21/2020 hepat ic funct ion panel , serum direct bilirubin 0.10 mg/dL 0.00-0 .30 Not Available [address], 62021, 04/21/2020 13:12:03 04/18/19 21 04/21/2020 hepat ic funct ion panel , serum AST 36 U/L 0-37 Not Available [address], 68364, 04/21/2020 13:12:03 04/18/19 21 04/21/2020 hepat ic funct ion panel , serum ALT 26 U/L 6-63 Not Available [address], 14305, 04/21/2020 13:12:03 04/18/19 21 04/21/2020 hepat ic funct ion panel , serum alk. phos. 45 U/L 50-136 low Not Available [address], 28525, 04/21/2020 13:12:03 04/18/19 21 04/21/2020 creat inine , serum or plasm a creatinine 0.5 mg/dL 0.8-1. 3 low Not Available [address], 47940, 04/21/2020 13:12:05 04/18/19 21 04/21/2020 creat inine , serum or plasm a GFR -non 137.9 mL/mi n Recom dana d GFR by the Natio nal Kidne y Found ation >60 mL/mi n/1.7 3m2 - Carol l <60 mL/mi n/1.7 3m2 - Chron ic Kidne y Disea se <15 mL/mi n/1.7 3m2 - Kidne y Failu re Not Available [address], 19917, 04/21/2020 13:12:05 04/18/19 21 04/21/2020 creat inine , serum or plasm a GFR - if 158.5 mL/mi n For Afric an Ameri can patie nts: Resul ts Multi plied by 1.21 Not Available [address], 56489, 04/21/2020 13:12:05 04/18/19 21 04/21/2020 C-miguelito ctive prote in, quant itati ve, serum or plasm a C-reactive protein -quant 2.0 mg/L 0.0-9. 0 Not Available [address], 17931, 04/21/2020 13:12:05 07/25/19 21 07/24/2020 CBC WBC 7.42 K/??L 3.98-1 0.04 Not Available [address], 60533, 07/24/2020 15:02:47 07/25/19 21 07/24/2020 CBC RBC 4.38 M/??L 3.93-5 .22 Not Available [address], 27153, 07/24/2020 15:02:47 07/25/19 21 07/24/2020 CBC HGB 12.3 g/dL 11.2-1 5.7 Not Available [address], 94165, 07/24/2020 15:02:47 07/25/19 21 07/24/2020 CBC HCT 39.3 % 34.1-4 4.9 Not Available [address], 82093, 07/24/2020 15:02:47 07/25/19 21 07/24/2020 CBC MCV 89.7 fL 79.4-9 4.8 Not Available [address], 43437, 07/24/2020 15:02:47 07/25/19 21 07/24/2020 CBC MCH 28.1 pg 25.6-3 2.2 Not Available [address], 44895, 07/24/2020 15:02:47 07/25/19 21 07/24/2020 CBC MCHC 31.3 g/dL 32.2-3 5.5 low Not Available [address], 43205, 07/24/2020 15:02:47 07/25/19 21 07/24/2020 CBC plt 241 K/??L 182-36 9 Not Available [address], 24014, 07/24/2020 15:02:47 07/25/19 21 07/24/2020 CBC MPV 11.2 fL 9.4-12 .3 Not Available [address], 71100, 07/24/2020 15:02:47 07/25/19 21 07/24/2020 CBC neut% 74.0 % 34.0-7 1.1 high Not Available [address], 69828, 07/24/2020 15:02:47 07/25/19 21 07/24/2020 CBC neut# 5.49 1.56-6 .13 Not Available [address], 57767, 07/24/2020 15:02:47 07/25/19 21 07/24/2020 CBC lymph % 16.0 % 19.3-5 1.7 low Not Available [address], 57269, 07/24/2020 15:02:47 07/25/19 21 07/24/2020 CBC lymph # 1.19 K/??L 1.18-3 .74 Not Available [address], 63350, 07/24/2020 15:02:47 07/25/19 21 07/24/2020 CBC mono% 8.2 % 4.7-12 .5 Not Available [address], 16949, 07/24/2020 15:02:47 07/25/19 21 07/24/2020 CBC mono# 0.61 0.24-0 .56 high Not Available [address], 50448, 07/24/2020 15:02:47 07/25/19 21 07/24/2020 CBC eo% 1.1 % 0.7-5. 8 Not Available [address], 48406, 07/24/2020 15:02:47 07/25/19 21 07/24/2020 CBC eo# 0.08 0.04-0 .36 Not Available [address], 21838, 07/24/2020 15:02:47 07/25/19 21 07/24/2020 CBC baso% 0.4 % 0.1-1. 2 Not Available [address], 17020, 07/24/2020 15:02:47 07/25/19 21 07/24/2020 CBC baso# 0.03 0.00-0 .08 Not Available [address], 34073, 07/24/2020 15:02:47 07/25/19 21 07/24/2020 CBC RDW-CV 13.6 % 11.7-1 4.4 Not Available [address], 20756, 07/24/2020 15:02:47 07/25/19 21 07/24/2020 CBC Ig% 0.300 % 0.000- 1.500 Ig % >0.5 Indic ates possi ble Left Shift Not Available [address], 81787, 07/24/2020 15:02:47 07/25/19 21 07/24/2020 CBC Ig# 0.020 0.000- 0.093 Not Available [address], 78083, 07/24/2020 15:02:47 07/25/19 21 07/24/2020 CBC NRBC% 0.0 % 0.0-0. 2 Not Available [address], 73885, 07/24/2020 15:02:47 07/25/19 21 07/24/2020 CBC NRBC# 0.000 0.000- 0.012 Not Available [address], 98151, 07/24/2020 15:02:47 07/25/19 21 07/24/2020 eryth rocyt e sedim entat ion rate by bashir bhatt sed rate 6.0 0.0-15 .0 Not Available [address], 10227, 07/24/2020 16:17:54 07/25/19 21 07/25/2020 hepat ic funct ion panel , serum total protein 6.8 g/dL 6.4-8. 2 Not Available [address], 14891, 07/25/2020 10:39:20 07/25/19 21 07/25/2020 hepat ic funct ion panel , serum albumin 3.7 g/dL 3.4-5. 0 Not Available [address], 63712, 07/25/2020 10:39:20 07/25/19 21 07/25/2020 hepat ic funct ion panel , serum globulin 3.1 g/dL Not Available [address], 98019, 07/25/2020 10:39:20 07/25/19 21 07/25/2020 hepat ic funct ion panel , serum A/G 1.2 ratio 0.8-2. 0 Not Available [address], 09059, 07/25/2020 10:39:20 07/25/19 21 07/25/2020 hepat ic funct ion panel , serum total bilirubin 0.40 mg/dL 0.00-1 .00 Not Available [address], 66556, 07/25/2020 10:39:20 07/25/19 21 07/25/2020 hepat ic funct ion panel , serum direct bilirubin 0.10 mg/dL 0.00-0 .30 Not Available [address], 44847, 07/25/2020 10:39:20 07/25/19 21 07/25/2020 hepat ic funct ion panel , serum AST 22 U/L 0-37 Not Available [address], 24928, 07/25/2020 10:39:20 07/25/19 21 07/25/2020 hepat ic funct ion panel , serum ALT 29 U/L 6-63 Not Available [address], 41809, 07/25/2020 10:39:20 07/25/19 21 07/25/2020 hepat ic funct ion panel , serum alk. phos. 37 U/L 50-136 low Not Available [address], 72915, 07/25/2020 10:39:20 07/25/19 21 07/25/2020 creat inine , serum or plasm a creatinine 0.5 mg/dL 0.8-1. 3 low Not Available [address], 76953, 07/25/2020 10:39:27 07/25/19 21 07/25/2020 creat inine , serum or plasm a GFR -non 137.9 mL/mi n Recom dana d GFR by the Natio nal Kidne y Found ation >60 mL/mi n/1.7 3m2 - Carol l <60 mL/mi n/1.7 3m2 - Chron ic Kidne y Disea se <15 mL/mi n/1.7 3m2 - Kidne y Failu re Not Available [address], 09565, 07/25/2020 10:39:27 07/25/19 21 07/25/2020 creat inine , serum or plasm a GFR - if 158.5 mL/mi n For Afric an Ameri can patie nts: Resul ts Multi plied by 1.21 Not Available [address], 23563, 07/25/2020 10:39:27 07/25/19 21 07/25/2020 C-miguelito ctive prote in, quant itati ve, serum or plasm a C-reactive protein -quant 3.0 mg/L 0.0-9. 0 Not Available [address], 40331, 07/25/2020 10:39:27 10/31/19 21 10/30/2020 CBC WBC 5.51 K/??L 3.98-1 0.04 Not Available [address], 87926, 10/30/2020 15:04:38 10/31/19 21 10/30/2020 CBC RBC 4.20 M/??L 3.93-5 .22 Not Available [address], 55238, 10/30/2020 15:04:38 10/31/19 21 10/30/2020 CBC HGB 12.1 g/dL 11.2-1 5.7 Not Available [address], 22640, 10/30/2020 15:04:38 10/31/19 21 10/30/2020 CBC HCT 38.2 % 34.1-4 4.9 Not Available [address], 31569, 10/30/2020 15:04:38 10/31/19 21 10/30/2020 CBC MCV 91.0 fL 79.4-9 4.8 Not Available [address], 08925, 10/30/2020 15:04:38 10/31/19 21 10/30/2020 CBC MCH 28.8 pg 25.6-3 2.2 Not Available [address], 93536, 10/30/2020 15:04:38 10/31/19 21 10/30/2020 CBC MCHC 31.7 g/dL 32.2-3 5.5 low Not Available [address], 37938, 10/30/2020 15:04:38 10/31/19 21 10/30/2020 CBC plt 249 K/??L 182-36 9 Not Available [address], 36934, 10/30/2020 15:04:38 10/31/19 21 10/30/2020 CBC MPV 11.3 fL 9.4-12 .3 Not Available [address], 39865, 10/30/2020 15:04:38 10/31/19 21 10/30/2020 CBC neut% 65.5 % 34.0-7 1.1 Not Available [address], 88100, 10/30/2020 15:04:38 10/31/19 21 10/30/2020 CBC neut# 3.61 1.56-6 .13 Not Available [address], 13059, 10/30/2020 15:04:38 10/31/19 21 10/30/2020 CBC lymph % 20.7 % 19.3-5 1.7 Not Available [address], 04035, 10/30/2020 15:04:38 10/31/19 21 10/30/2020 CBC lymph # 1.14 K/??L 1.18-3 .74 low Not Available [address], 73856, 10/30/2020 15:04:38 10/31/19 21 10/30/2020 CBC mono% 9.6 % 4.7-12 .5 Not Available [address], 59751, 10/30/2020 15:04:38 10/31/19 21 10/30/2020 CBC mono# 0.53 0.24-0 .56 Not Available [address], 16161, 10/30/2020 15:04:38 10/31/19 21 10/30/2020 CBC eo% 3.3 % 0.7-5. 8 Not Available [address], 13705, 10/30/2020 15:04:38 10/31/19 21 10/30/2020 CBC eo# 0.18 0.04-0 .36 Not Available [address], 08521, 10/30/2020 15:04:38 10/31/19 21 10/30/2020 CBC baso% 0.7 % 0.1-1. 2 Not Available [address], 95803, 10/30/2020 15:04:38 10/31/19 21 10/30/2020 CBC baso# 0.04 0.00-0 .08 Not Available [address], 00255, 10/30/2020 15:04:38 10/31/19 21 10/30/2020 CBC RDW-CV 13.2 % 11.7-1 4.4 Not Available [address], 77679, 10/30/2020 15:04:38 10/31/19 21 10/30/2020 CBC Ig% 0.200 % 0.000- 1.500 Ig % >0.5 Indic ates possi ble Left Shift Not Available [address], 80380, 10/30/2020 15:04:38 10/31/19 21 10/30/2020 CBC Ig# 0.010 0.000- 0.093 Not Available [address], 98670, 10/30/2020 15:04:38 10/31/19 21 10/30/2020 CBC NRBC% 0.0 % 0.0-0. 2 Not Available [address], 76524, 10/30/2020 15:04:38 10/31/19 21 10/30/2020 CBC NRBC# 0.000 0.000- 0.012 Not Available [address], 32942, 10/30/2020 15:04:38 10/31/19 21 10/30/2020 ESR sed rate 5.0 0.0-15 .0 Not Available [address], 24738, 10/30/2020 16:10:05 10/31/19 21 10/31/2020 HEPAT IC FUNCT ION PANEL total protein 6.7 g/dL 6.4-8. 2 Not Available [address], 98947, 10/31/2020 10:44:31 10/31/19 21 10/31/2020 HEPAT IC FUNCT ION PANEL albumin 3.7 g/dL 3.4-5. 0 Not Available [address], 04411, 10/31/2020 10:44:31 10/31/19 21 10/31/2020 HEPAT IC FUNCT ION PANEL globulin 3.0 g/dL Not Available [address], 53138, 10/31/2020 10:44:31 10/31/19 21 10/31/2020 HEPAT IC FUNCT ION PANEL A/G 1.2 ratio 0.8-2. 0 Not Available [address], 09213, 10/31/2020 10:44:31 10/31/19 21 10/31/2020 HEPAT IC FUNCT ION PANEL total bilirubin 0.40 mg/dL 0.00-1 .00 Not Available [address], 59181, 10/31/2020 10:44:31 10/31/19 21 10/31/2020 HEPAT IC FUNCT ION PANEL direct bilirubin 0.10 mg/dL 0.00-0 .30 Not Available [address], 22865, 10/31/2020 10:44:31 10/31/19 21 10/31/2020 HEPAT IC FUNCT ION PANEL AST 22 U/L 0-37 Not Available [address], 33201, 10/31/2020 10:44:31 10/31/1910/31/2020 HEPAT IC FUNCT ION PANEL ALT 27 U/L 6-63 Not Available [address], 25003, 10/31/2020 10:44:31 10/31/19 21 10/31/2020 HEPAT IC FUNCT ION PANEL alk. phos. 39 U/L 50-136 low Not Available [address], 83440, 10/31/2020 10:44:31 10/31/1910/31/2020 CREAT ININE creatinine 0.5 mg/dL 0.8-1. 3 low Not Available [address], 58068, 10/31/2020 10:44:32 10/31/19 21 10/31/2020 CREAT ININE GFR -non 137.4 mL/mi n Recom dana d GFR by the Natio nal Kidne y Found ation >60 mL/mi n/1.7 3m2 - Carol l <60 mL/mi n/1.7 3m2 - Chron ic Kidne y Disea se <15 mL/mi n/1.7 3m2 - Kidne y Failu re Not Available [address], 16956, 10/31/2020 10:44:32 10/31/19 21 10/31/2020 CREAT ININE GFR - if 158.0 mL/mi n For Afric an Ameri can patie nts: Resul ts Multi plied by 1.21 Not Available [address], 93653, 10/31/2020 10:44:32 10/31/19 21 10/31/2020 C-MIGUELITO CTIVE PROTE IN-QU ANTIT ATIVE C-reactive protein -quant <2.0 mg/L 0.0-9. 0 < Verif ied by twyla floyd Not Available [address], 29985, 10/31/2020 11:50:46 05/19/19 22 05/19/2021 CBC W/O AUTO DIFF WBC 3.97 K/??L 3.98-1 0.04 low Not Available [address], 63759, 05/19/2021 11:01:34 05/19/19 22 05/19/2021 CBC W/O AUTO DIFF RBC 4.35 M/??L 3.93-5 .22 Not Available [address], 71220, 05/19/2021 11:01:34 05/19/19 22 05/19/2021 CBC W/O AUTO DIFF HGB 12.4 g/dL 11.2-1 5.7 Not Available [address], 11569, 05/19/2021 11:01:34 05/19/19 22 05/19/2021 CBC W/O AUTO DIFF HCT 39.2 % 34.1-4 4.9 Not Available [address], 52857, 05/19/2021 11:01:34 05/19/19 22 05/19/2021 CBC W/O AUTO DIFF MCV 90.1 fL 79.4-9 4.8 Not Available [address], 98273, 05/19/2021 11:01:34 05/19/19 22 05/19/2021 CBC W/O AUTO DIFF MCH 28.5 pg 25.6-3 2.2 Not Available [address], 75569, 05/19/2021 11:01:34 05/19/19 22 05/19/2021 CBC W/O AUTO DIFF MCHC 31.6 g/dL 32.2-3 5.5 low Not Available [address], 94425, 05/19/2021 11:01:34 05/19/19 22 05/19/2021 CBC W/O AUTO DIFF plt 234 K/??L 182-36 9 Not Available [address], 62626, 05/19/2021 11:01:34 05/19/19 22 05/19/2021 CBC W/O AUTO DIFF RDW-CV 13.0 % 11.7-1 4.4 Not Available [address], 49835, 05/19/2021 11:01:34 05/19/19 22 05/19/2021 ESR sed rate 7.0 0.0-15 .0 Not Available [address], 33474, 05/19/2021 12:56:03 05/19/19 22 05/20/2021 COMP. METAB OLIC PANEL glucose 81 mg/dL 70-100 Not Available [address], 85837, 05/20/2021 10:00:15 05/19/19 22 05/20/2021 COMP. METAB OLIC PANEL BUN 8 mg/dL 7-18 Not Available [address], 81357, 05/20/2021 10:00:15 05/19/1905/20/2021 COMP. METAB OLIC PANEL creatinine 0.5 mg/dL 0.8-1. 3 low Not Available [address], 06838, 05/20/2021 10:00:15 05/19/1905/20/2021 COMP. METAB OLIC PANEL B/C 16.0 ratio Not Available [address], 69981, 05/20/2021 10:00:15 05/19/1905/20/2021 COMP. METAB OLIC PANEL GFR >=60ML /MIN mL/mi n normal >=60m L/min - Carol l or midly reduc ed <60mL /min- Decre ased kidne y funct ion <15mL /min - Kidne y failu re [facility] calcu lates estim ated Glome rular Filtr ation Rate (eGFR ) using the Chron ic Kidne y Disea se Epide miolo gy Colla borat ion (CKD- EPI) Equat ion (Jaswant r et. al 2020) as recom dana d by the Natio nal Kidne y Found ation . eGFR is based on age, serum creat inine , and sex. CKD-E PI does not calcu late eGFR by race, does not apply to child ifeanyi (age <18 years ), and shoul d not be used in pregn nate. Not Available [address], 14398, 05/20/2021 10:00:15 05/19/19 22 05/20/2021 COMP. METAB OLIC PANEL sodium 140 mmol/ L 136-14 5 Not Available [address], 95803, 05/20/2021 10:00:15 05/19/19 22 05/20/2021 COMP. METAB OLIC PANEL potassium 4.9 mmol/ L 3.5-5. 1 Not Available [address], 76352, 05/20/2021 10:00:15 05/19/19 22 05/20/2021 COMP. METAB OLIC PANEL chloride 106 mmol/ L 96-107 Not Available [address], [address], 05/20/2021 10:00:15 05/19/19 22 05/20/2021 COMP. METAB OLIC PANEL anion gap 5.2 5.0-15 .0 Not Available [address], [address], 05/20/2021 10:00:15 05/19/19 22 05/20/2021 COMP. METAB OLIC PANEL CO2 29 mmol/ L 21-32 Not Available [address], [address], 05/20/2021 10:00:15 05/19/19 22 05/20/2021 COMP. METAB OLIC PANEL calcium 9.8 mg/dL 8.5-10 .3 Not Available [address], [address], 05/20/2021 10:00:15 05/19/19 22 05/20/2021 COMP. METAB OLIC PANEL total protein 6.8 g/dL 6.4-8. 2 Not Available [address], [address], 05/20/2021 10:00:15 05/19/19 22 05/20/2021 COMP. METAB OLIC PANEL albumin 3.9 g/dL 3.4-5. 0 Not Available [address], [address], 05/20/2021 10:00:15 05/19/19 22 05/20/2021 COMP. METAB OLIC PANEL globulin 2.9 g/dL Not Available [address], [address], 05/20/2021 10:00:15 05/19/19 22 05/20/2021 COMP. METAB OLIC PANEL A/G 1.3 ratio 0.8-2. 0 Not Available [address], [address], 05/20/2021 10:00:15 05/19/19 22 05/20/2021 COMP. METAB OLIC PANEL total bilirubin 0.50 mg/dL 0.00-1 .00 Not Available [address], [address], 05/20/2021 10:00:15 05/19/19 22 05/20/2021 COMP. METAB OLIC PANEL AST 26 U/L 0-37 Not Available [address], [address], 05/20/2021 10:00:15 05/19/19 22 05/20/2021 COMP. METAB OLIC PANEL ALT 27 U/L 6-63 Not Available [address], [address], 05/20/2021 10:00:15 05/19/19 22 05/20/2021 COMP. METAB OLIC PANEL alk. phos. 40 U/L 50-136 low Not Available [address], [address], 05/20/2021 10:00:15 05/19/19 22 05/20/2021 C-MIGUELITO CTIVE PROTE IN-QU ANTIT ATIVE C-reactive protein -quant <2.0 mg/L 0.0-9. 0 < Verif ied by twyla floyd Not Available [address], [address], 05/20/2021 10:10:10 08/20/19 22 08/19/2021 CBC W/O AUTO DIFF WBC 7.38 K/??L 3.98-1 0.04 Not Available [address], [address], 08/19/2021 15:24:41 08/20/19 22 08/19/2021 CBC W/O AUTO DIFF RBC 3.75 M/??L 3.93-5 .22 low Not Available [address], [address], 08/19/2021 15:24:41 08/20/19 22 08/19/2021 CBC W/O AUTO DIFF HGB 10.7 g/dL 11.2-1 5.7 low Not Available [address], [address], 08/19/2021 15:24:41 08/20/19 22 08/19/2021 CBC W/O AUTO DIFF HCT 34.0 % 34.1-4 4.9 low Not Available [address], [address], 08/19/2021 15:24:41 08/20/19 22 08/19/2021 CBC W/O AUTO DIFF MCV 90.7 fL 79.4-9 4.8 Not Available [address], [address], 08/19/2021 15:24:41 08/20/19 22 08/19/2021 CBC W/O AUTO DIFF MCH 28.5 pg 25.6-3 2.2 Not Available [address], [address], 08/19/2021 15:24:41 08/20/19 22 08/19/2021 CBC W/O AUTO DIFF MCHC 31.5 g/dL 32.2-3 5.5 low Not Available [address], [address], 08/19/2021 15:24:41 08/20/19 22 08/19/2021 CBC W/O AUTO DIFF plt 331 K/??L 182-36 9 Not Available [address], [address], 08/19/2021 15:24:41 08/20/19 22 08/19/2021 CBC W/O AUTO DIFF RDW-CV 13.2 % 11.7-1 4.4 Not Available [address], [address], 08/19/2021 15:24:41 08/20/19 22 08/19/2021 ESR sed rate 26.0 0.0-15 .0 high Not Available [address], [address], 08/19/2021 16:42:49 08/20/19 22 08/20/2021 COMP. METAB OLIC PANEL glucose 80 mg/dL 70-100 Not Available [address], [address], 08/20/2021 11:07:36 08/20/19 22 08/20/2021 COMP. METAB OLIC PANEL BUN 10 mg/dL 7-18 Not Available [address], [address], 08/20/2021 11:07:36 08/20/19 22 08/20/2021 COMP. METAB OLIC PANEL creatinine 0.5 mg/dL 0.8-1. 3 low Not Available [address], [address], 08/20/2021 11:07:36 08/20/19 22 08/20/2021 COMP. METAB OLIC PANEL B/C 20.0 ratio Not Available [address], [address], 08/20/2021 11:07:36 08/20/19 22 08/20/2021 COMP. METAB OLIC PANEL GFR >=60ML /MIN mL/mi n normal >=60m L/min - Carol l or midly reduc ed <60mL /min- Decre ased kidne y funct ion <15mL /min - Kidne y failu re [facility] calcu lates estim ated Glome rular Filtr ation Rate (eGFR ) using the Chron ic Kidne y Disea se Epide miolo gy Colla borat ion (CKD- EPI) Equat ion (Jaswant r et. al 2020) as recom dana d by the Natio nal Kidne y [facility] ation . eGFR is based on age, serum creat inine , and sex. CKD-E PI does not calcu late eGFR by race, does not apply to child ifeanyi (age <18 years ), and shoul d not be used in pregn nate. Not Available [address], [address], 08/20/2021 11:07:36 08/20/19 22 08/20/2021 COMP. METAB OLIC PANEL sodium 138 mmol/ L 136-14 5 Not Available [address], [address], 08/20/2021 11:07:36 08/20/19 22 08/20/2021 COMP. METAB OLIC PANEL potassium 5.0 mmol/ L 3.5-5. 1 Not Available [address], [address], 08/20/2021 11:07:36 08/20/19 22 08/20/2021 COMP. METAB OLIC PANEL chloride 101 mmol/ L 96-107 Not Available [address], [address], 08/20/2021 11:07:36 08/20/19 22 08/20/2021 COMP. METAB OLIC PANEL anion gap 10.2 5.0-15 .0 Not Available [address], [address], 08/20/2021 11:07:36 08/20/19 22 08/20/2021 COMP. METAB OLIC PANEL CO2 27 mmol/ L 21-32 Not Available [address], [address], 08/20/2021 11:07:36 08/20/19 22 08/20/2021 COMP. METAB OLIC PANEL calcium 9.1 mg/dL 8.5-10 .3 Not Available [address], [address], 08/20/2021 11:07:36 08/20/19 22 08/20/2021 COMP. METAB OLIC PANEL total protein 6.7 g/dL 6.4-8. 2 Not Available [address], [address], 08/20/2021 11:07:36 08/20/19 22 08/20/2021 COMP. METAB OLIC PANEL albumin 3.6 g/dL 3.4-5. 0 Not Available [address], [address], 08/20/2021 11:07:36 08/20/19 22 08/20/2021 COMP. METAB OLIC PANEL globulin 3.1 g/dL Not Available [address], [address], 08/20/2021 11:07:36 08/20/19 22 08/20/2021 COMP. METAB OLIC PANEL A/G 1.2 ratio 0.8-2. 0 Not Available [address], [address], 08/20/2021 11:07:36 08/20/19 22 08/20/2021 COMP. METAB OLIC PANEL total bilirubin 0.40 mg/dL 0.00-1 .00 Not Available [address], [address], 08/20/2021 11:07:36 08/20/19 22 08/20/2021 COMP. METAB OLIC PANEL AST 21 U/L 0-37 Not Available [address], [address], 08/20/2021 11:07:36 08/20/19 22 08/20/2021 COMP. METAB OLIC PANEL ALT 20 U/L 6-63 Not Available [address], [address], 08/20/2021 11:07:36 08/20/19 22 08/20/2021 COMP. METAB OLIC PANEL alk. phos. 38 U/L 50-136 low Not Available [address], [address], 08/20/2021 11:07:36 08/20/19 22 08/20/2021 C-MIGUELITO CTIVE PROTE IN-QU ANTIT ATIVE C-reactive protein -quant 27.1 mg/L 0.0-9. 0 high Not Available [address], [address], 08/20/2021 11:07:37 08/27/19 22 08/26/2021 CBC WBC 6.24 K/??L 3.98-1 0.04 Not Available [address], [address], 08/26/2021 15:42:16 08/27/19 22 08/26/2021 CBC RBC 3.87 M/??L 3.93-5 .22 low Not Available [address], [address], 08/26/2021 15:42:16 08/27/19 22 08/26/2021 CBC HGB 11.0 g/dL 11.2-1 5.7 low Not Available [address], [address], 08/26/2021 15:42:16 08/27/19 22 08/26/2021 CBC HCT 35.0 % 34.1-4 4.9 Not Available [address], [address], 08/26/2021 15:42:16 08/27/19 22 08/26/2021 CBC MCV 90.4 fL 79.4-9 4.8 Not Available [address], [address], 08/26/2021 15:42:16 08/27/19 22 08/26/2021 CBC MCH 28.4 pg 25.6-3 2.2 Not Available [address], [address], 08/26/2021 15:42:16 08/27/19 22 08/26/2021 CBC MCHC 31.4 g/dL 32.2-3 5.5 low Not Available [address], [address], 08/26/2021 15:42:16 08/27/19 22 08/26/2021 CBC plt 318 K/??L 182-36 9 Not Available [address], [address], 08/26/2021 15:42:16 08/27/19 22 08/26/2021 CBC MPV 10.5 fL 9.4-12 .3 Not Available [address], [address], 08/26/2021 15:42:16 08/27/19 22 08/26/2021 CBC neut% 63.7 % 34.0-7 1.1 Not Available [address], [address], 08/26/2021 15:42:16 08/27/19 22 08/26/2021 CBC neut# 3.97 1.56-6 .13 Not Available [address], [address], 08/26/2021 15:42:16 08/27/19 22 08/26/2021 CBC lymph % 23.9 % 19.3-5 1.7 Not Available [address], [address], 08/26/2021 15:42:16 08/27/19 22 08/26/2021 CBC lymph # 1.49 K/??L 1.18-3 .74 Not Available [address], [address], 08/26/2021 15:42:16 08/27/19 22 08/26/2021 CBC mono% 9.3 % 4.7-12 .5 Not Available [address], [address], 08/26/2021 15:42:16 08/27/19 22 08/26/2021 CBC mono# 0.58 0.24-0 .56 high Not Available [address], [address], 08/26/2021 15:42:16 08/27/19 22 08/26/2021 CBC eo% 2.2 % 0.7-5. 8 Not Available [address], [address], 08/26/2021 15:42:16 08/27/19 22 08/26/2021 CBC eo# 0.14 0.04-0 .36 Not Available [address], [address], 08/26/2021 15:42:16 08/27/19 22 08/26/2021 CBC baso% 0.6 % 0.1-1. 2 Not Available [address], [address], 08/26/2021 15:42:16 08/27/19 22 08/26/2021 CBC baso# 0.04 0.00-0 .08 Not Available [address], [address], 08/26/2021 15:42:16 08/27/19 22 08/26/2021 CBC RDW-CV 13.2 % 11.7-1 4.4 Not Available [address], [address], 08/26/2021 15:42:16 08/27/19 22 08/26/2021 CBC Ig% 0.300 % 0.000- 1.500 Ig % >0.5 Indic ates possi ble Left Shift Not Available [address], [address], 08/26/2021 15:42:16 08/27/19 22 08/26/2021 CBC Ig# 0.020 0.000- 0.093 Not Available [address], [address], 08/26/2021 15:42:16 08/27/19 22 08/26/2021 CBC NRBC% 0.0 % 0.0-0. 2 Not Available [address], [address], 08/26/2021 15:42:16 08/27/19 22 08/26/2021 CBC NRBC# 0.000 0.000- 0.012 Not Available [address], [address], 08/26/2021 15:42:16 08/27/19 22 08/26/2021 VITAM IN B12 vitamin B12 194 pg/mL 230-10 50 low Not Available [address], [address], 08/26/2021 16:44:37 08/27/19 22 08/26/2021 IRON PANEL iron 46 ug/dL 35-150 Not Available [address], [address], 08/26/2021 17:57:17 08/27/19 22 08/26/2021 IRON PANEL T.I.B.C. 244 ug/dL 250-45 0 low Not Available [address], [address], 08/26/2021 17:57:17 08/27/19 22 08/26/2021 IRON PANEL % saturation 18.9 % Not Available [facility] [address], [address], 08/26/2021 17:57:17 08/27/19 22 08/27/2021 NAIN TIN ferritin 46 NG/mL 15-200 Not Available [address], [address], 08/27/2021 12:58:05 08/27/19 22 2021 FOLAT E folate 5 NG/mL 3-16 Not Available [address], [address], 2021 13:21:59 11/04/19 22 11/03/2021 CBC W/O AUTO DIFF WBC 6.26 K/??L 3.98-1 0.04 Not Available [address], [address], 11/03/2021 16:56:47 11/04/19 22 11/03/2021 CBC W/O AUTO DIFF RBC 4.08 M/??L 3.93-5 .22 Not Available [address], [address], 11/03/2021 16:56:47 11/04/19 22 11/03/2021 CBC W/O AUTO DIFF HGB 11.7 g/dL 11.2-1 5.7 Not Available [address], [address], 11/03/2021 16:56:47 11/04/19 22 11/03/2021 CBC W/O AUTO DIFF HCT 36.3 % 34.1-4 4.9 Not Available [address], [address], 11/03/2021 16:56:47 11/04/19 22 11/03/2021 CBC W/O AUTO DIFF MCV 89.0 fL 79.4-9 4.8 Not Available [address], [address], 11/03/2021 16:56:47 11/04/19 22 11/03/2021 CBC W/O AUTO DIFF MCH 28.7 pg 25.6-3 2.2 Not Available [address], [address], 11/03/2021 16:56:47 11/04/19 22 11/03/2021 CBC W/O AUTO DIFF MCHC 32.2 g/dL 32.2-3 5.5 Not Available [address], [address], 11/03/2021 16:56:47 11/04/19 22 11/03/2021 CBC W/O AUTO DIFF plt 235 K/??L 182-36 9 Not Available [address], [address], 11/03/2021 16:56:47 11/04/19 22 11/03/2021 CBC W/O AUTO DIFF RDW-CV 13.4 % 11.7-1 4.4 Not Available [address], [address], 11/03/2021 16:56:47 11/04/19 22 11/04/2021 COMP. METAB OLIC PANEL glucose 81 mg/dL 70-100 Not Available [address], [address], 11/04/2021 10:26:35 11/04/19 22 11/04/2021 COMP. METAB OLIC PANEL BUN 10 mg/dL 7-18 Not Available [address], [address], 11/04/2021 10:26:35 11/04/19 22 11/04/2021 COMP. METAB OLIC PANEL creatinine 0.6 mg/dL 0.8-1. 3 low Not Available [address], [address], 11/04/2021 10:26:35 11/04/19 22 11/04/2021 COMP. METAB OLIC PANEL B/C 16.7 ratio Not Available [address], [address], 11/04/2021 10:26:35 11/04/19 22 11/04/2021 COMP. METAB OLIC PANEL GFR >=60ML /MIN mL/mi n normal >=60m L/min - Carol l or midly reduc ed <60mL /min- Decre ased kidne y funct ion <15mL /min - Kidne y failu re [facility] calcu lates estim ated Glome rular Filtr ation Rate (eGFR ) using the Chron ic Kidne y Disea se Epide miolo gy Colla borat ion (CKD- EPI) Equat ion (Jaswant r et. al 2020) as recom dana d by the Natio nal Kidne y Found ation . eGFR is based on age, serum creat inine , and sex. CKD-E PI does not calcu late eGFR by race, does not apply to child ifeanyi (age <18 years ), and shoul d not be used in pregn nate. Not Available [address], [address], 11/04/2021 10:26:35 11/04/19 22 11/04/2021 COMP. METAB OLIC PANEL sodium 139 mmol/ L 136-14 5 Not Available [address], [address], 11/04/2021 10:26:35 11/04/19 22 11/04/2021 COMP. METAB OLIC PANEL potassium 4.3 mmol/ L 3.5-5. 1 Not Available [address], [address], 11/04/2021 10:26:35 11/04/19 22 11/04/2021 COMP. METAB OLIC PANEL chloride 102 mmol/ L 96-107 Not Available [address], [address], 11/04/2021 10:26:35 11/04/19 22 11/04/2021 COMP. METAB OLIC PANEL anion gap 10.1 5.0-15 .0 Not Available [address], [address], 11/04/2021 10:26:35 11/04/19 22 11/04/2021 COMP. METAB OLIC PANEL CO2 27 mmol/ L 21-32 Not Available [address], [address], 11/04/2021 10:26:35 11/04/19 22 11/04/2021 COMP. METAB OLIC PANEL calcium 8.7 mg/dL 8.5-10 .3 Not Available [address], [address], 11/04/2021 10:26:35 11/04/19 22 11/04/2021 COMP. METAB OLIC PANEL total protein 7.1 g/dL 6.4-8. 2 Not Available [address], [address], 11/04/2021 10:26:35 11/04/19 22 11/04/2021 COMP. METAB OLIC PANEL albumin 3.9 g/dL 3.4-5. 0 Not Available [address], [address], 11/04/2021 10:26:35 11/04/19 22 11/04/2021 COMP. METAB OLIC PANEL globulin 3.2 g/dL Not Available [address], [address], 11/04/2021 10:26:35 11/04/19 22 11/04/2021 COMP. METAB OLIC PANEL A/G 1.2 ratio 0.8-2. 0 Not Available [address], [address], 11/04/2021 10:26:35 11/04/19 22 11/04/2021 COMP. METAB OLIC PANEL total bilirubin 0.40 mg/dL 0.00-1 .00 Not Available [address], [address], 11/04/2021 10:26:35 11/04/19 22 11/04/2021 COMP. METAB OLIC PANEL AST 23 U/L 0-37 Not Available [address], [address], 11/04/2021 10:26:35 11/04/19 22 11/04/2021 COMP. METAB OLIC PANEL ALT 20 U/L 6-63 Not Available [address], [address], 11/04/2021 10:26:35 11/04/19 22 11/04/2021 COMP. METAB OLIC PANEL alk. phos. 45 U/L 50-136 low Not Available [address], [address], 11/04/2021 10:26:35 11/04/19 22 11/04/2021 C-MIGUELITO CTIVE PROTE IN-QU ANTIT ATIVE C-reactive protein -quant 5.1 mg/L 0.0-9. 0 Not Available [address], [address], 11/04/2021 10:26:37 11/04/19 22 11/04/2021 ESR sed rate 3.0 0.0-15 .0 Not Available [address], [address], 11/04/2021 10:37:15 02/03/20 22 02/02/2022 LIPID PANEL cholesterol 168 mg/dL <200 mg/dl Sylwia able 200-2 39 mg/dl Borde rline High >240 mg/dl High Not Available [address], [address], 02/02/2022 15:28:14 02/03/20 22 02/02/2022 LIPID PANEL triglyceride s 66 mg/dL <150 mg/dL Carol l 150-1 99 mg/dL Borde rline High 200-4 99 mg/dL High >500 mg/dL Very High Not Available [address], [address], 02/02/2022 15:28:14 02/03/20 22 02/02/2022 LIPID PANEL direct HDL 59 mg/dL <40 mg/dl - Major Risk for CHD >60 mg/dl - Negat scott Risk for CHD Not Available [address], [address], 02/02/2022 15:28:14 02/03/20 22 02/02/2022 DIREC T LDL direct LDL 98 mg/dL RISK CATEG ORY LDL GOAL _ CHD or CHD Risk Equiv alent s <100 mg/dl (10-y ear risk >20%) 2+ Risk Facto rs <130 mg/dl (10-y ear risk <= 20%) 0-1 Risk Facto r??? <160 mg/dl ??? Almos t all peopl e with 0-1 risk facto r have a 10 year risk <10%, thus 10 year risk asses ment in peopl e with 0-1 risk facto r is not neces nereida. Not Available [address], [address], 02/02/2022 15:28:15 02/03/20 22 02/02/2022 CBC W/O AUTO DIFF WBC 5.73 K/??L 3.98-1 0.04 Not Available [address], [address], 02/02/2022 15:45:04 02/03/20 22 02/02/2022 CBC W/O AUTO DIFF RBC 3.94 M/??L 3.93-5 .22 Not Available [address], [address], 02/02/2022 15:45:04 02/03/20 22 02/02/2022 CBC W/O AUTO DIFF HGB 11.4 g/dL 11.2-1 5.7 Not Available [address], [address], 02/02/2022 15:45:04 02/03/20 22 02/02/2022 CBC W/O AUTO DIFF HCT 35.7 % 34.1-4 4.9 Not Available [address], [address], 02/02/2022 15:45:04 02/03/20 22 02/02/2022 CBC W/O AUTO DIFF MCV 90.6 fL 79.4-9 4.8 Not Available [address], [address], 02/02/2022 15:45:04 02/03/20 22 02/02/2022 CBC W/O AUTO DIFF MCH 28.9 pg 25.6-3 2.2 Not Available [address], [address], 02/02/2022 15:45:04 02/03/20 22 02/02/2022 CBC W/O AUTO DIFF MCHC 31.9 g/dL 32.2-3 5.5 low Not Available [address], [address], 02/02/2022 15:45:04 02/03/20 22 02/02/2022 CBC W/O AUTO DIFF plt 345 K/??L 182-36 9 Not Available [address], [address], 02/02/2022 15:45:04 02/03/20 22 02/02/2022 CBC W/O AUTO DIFF RDW-CV 13.0 % 11.7-1 4.4 Not Available [address], [address], 02/02/2022 15:45:04 02/03/20 22 02/02/2022 COMP. METAB OLIC PANEL glucose 103 mg/dL 70-100 high Not Available [address], [address], 02/02/2022 15:45:47 02/03/20 22 02/02/2022 COMP. METAB OLIC PANEL BUN 8 mg/dL 7-18 Not Available [address], [address], 02/02/2022 15:45:47 02/03/20 22 02/02/2022 COMP. METAB OLIC PANEL creatinine 0.5 mg/dL 0.8-1. 3 low Not Available [address], [address], 02/02/2022 15:45:47 02/03/20 22 02/02/2022 COMP. METAB OLIC PANEL B/C 16.0 ratio Not Available [address], [address], 02/02/2022 15:45:47 02/03/20 22 02/02/2022 COMP. METAB OLIC PANEL GFR >=60ML /MIN mL/mi n normal >=60m L/min - Carol l or midly reduc ed <60mL /min- Decre ased kidne y funct ion <15mL /min - Kidne y failu re [facility] calcu lates estim ated Glome rular Filtr ation Rate (eGFR ) using the Chron ic Kidne y Disea se Epide miolo gy Colla borat ion (CKD- EPI) Equat ion (Jaswant mcghee et. al 2020) as recom [facility]ana d by [facility] . eGFR is based on age, serum creat inine , and sex. CKD-E PI does not calcu late eGFR by race, does not apply to child ifeanyi (age <18 years ), and marioul d not be used in pregn nate. Not Available [address], [address], 02/02/2022 15:45:47 02/03/20 22 02/02/2022 COMP. METAB OLIC PANEL sodium 137 mmol/ L 136-14 5 Not Available [address], [address], 02/02/2022 15:45:47 02/03/20 22 02/02/2022 COMP. METAB OLIC PANEL potassium 4.6 mmol/ L 3.5-5. 1 Not Available [address], [address], 02/02/2022 15:45:47 02/03/20 22 02/02/2022 COMP. METAB OLIC PANEL chloride 100 mmol/ L 96-107 Not Available [address], [address], 02/02/2022 15:45:47 02/03/20 22 02/02/2022 COMP. METAB OLIC PANEL anion gap 7.8 5.0-15 .0 Not Available [address], [address]70, 02/02/2022 15:45:47 02/03/20 22 02/02/2022 COMP. METAB OLIC PANEL CO2 29 mmol/ L 21-32 Not Available [address], [address]51, 02/02/2022 15:45:47 02/03/20 22 02/02/2022 COMP. METAB OLIC PANEL calcium 9.2 mg/dL 8.5-10 .3 Not Available [address], [address]704, 02/02/2022 15:45:47 02/03/20 22 02/02/2022 COMP. METAB OLIC PANEL total protein 7.1 g/dL 6.4-8. 2 Not Available [address], [address], 02/02/2022 15:45:47 02/03/20 22 02/02/2022 COMP. METAB OLIC PANEL albumin 3.7 g/dL 3.4-5. 0 Not Available [address], [address]776, 02/02/2022 15:45:47 02/03/20 22 02/02/2022 COMP. METAB OLIC PANEL globulin 3.4 g/dL Not Available [address], [address]509, 02/02/2022 15:45:47 02/03/20 22 02/02/2022 COMP. METAB OLIC PANEL A/G 1.1 ratio 0.8-2. 0 Not Available [address], [address], 02/02/2022 15:45:47 02/03/20 22 02/02/2022 COMP. METAB OLIC PANEL total bilirubin 0.30 mg/dL 0.00-1 .00 Not Available [address], [address], 02/02/2022 15:45:47 02/03/20 22 02/02/2022 COMP. METAB OLIC PANEL AST 19 U/L 0-37 Not Available [address], [address]336, 02/02/2022 15:45:47 02/03/20 22 02/02/2022 COMP. METAB OLIC PANEL ALT 20 U/L 6-63 Not Available [address], [address]78, 02/02/2022 15:45:47 02/03/20 22 02/02/2022 COMP. METAB OLIC PANEL alk. phos. 42 U/L 50-136 low Not Available [address], [address], 02/02/2022 15:45:47 02/03/20 22 02/02/2022 C-MIGUELITO CTIVE PROTE IN-QU ANTIT ATIVE C-reactive protein -quant <2.0 mg/L 0.0-9. 0 < Not Available [address], [address]12, 02/02/2022 15:45:49 02/03/20 22 02/02/2022 ESR sed rate 30.0 0.0-15 .0 high Not Available [address], [address]60, 02/02/2022 16:03:48 08/20/19 21 08/18/2020 XR, hand OBSERV ATION: CLINIC AL HISTOR Y: Rheuma toid arthri tis. TECHNI QUE: Three views of the right and left hands obtain ed. COMPAR YVETTE: 2018, 017, 016, 013 FINDIN GS: RIGHT There is no acute fractu re or disloc ation. There is mild sublux ation at the first MCP joint. There is first, second and third MCP joint space narrow ing and osteop hytic spurri ng. Bone minera lizati on is within normal limits . LEFT There is no acute fractu re, sublux ation, or disloc ation. There is degene rative change at the base of the first metaca rpal and at the articu lation of the scapho id and trapez ium and trapez oid bones. There is first, second and third MCP joint space narrow ing and osteop hytic spurri ng. There is fifth digit DIP joint space narrow ing and spurri ng with adjace nt soft tissue swelli ng. Bone minera lizati on is within normal limits . IMPRES NAKIA: No acute bone abnorm ality. Bilate ral joint diseas e primar jessica involv ing the MCP joints . There has been diseas e progre ssion at the left second MCP joint and at the left fifth digit DIP joint. Electr onical ly signed Baudilio Koenig clayton: Massimo Solitario ms [facility] (Imaging) [address] , [place], [address], 09/08/2020 14:46:35 Result Notes None recorded. Problems Name Problem SNOMED Code Status Onset Date Resolution Date Notes Provider Name and Address Organization Details Recorded Time Vitamin D deficiency 60272997 Active Wilfrido Medrano MD [address] [place] [address], [phone] , [facility] 4 17:14:13 Long-term drug therapy Active 2016 Wilfrido Medrano MD [address] [place] [address], [phone] , [facility] 7 14:43:09 Bunion 400647829 Active 2007 Not Available [facility] 3 03:12:50 Adverse reaction to drug 50150323 Active 2007 Not Available [facility] 3 03:12:50 Rheumatoid arthritis 49052007 Active 2004 Wilfrido Medrano MD [address] [place] [address], [phone] , [facility] 6 18:39:44 Hand joint pain 762690316 Completed 200502/14/2013 Not Available [facility] 3 02:02:43 Anemia 356505986 Active 2005 Not Available [facility] 3 03:12:50 Low back pain 300774987 Active Not Available [facility] 3 03:12:50 Primary malignant neoplasm of female breast 87856280 Active 2007 Wilfrido Medrano MD [address] [place] [address], [phone] , [facility] 6 18:20:51 Pain in limb 37945508 Completed 02/14/2013 Not Available [facility] 3 02:00:56 Malaise and fatigue 455636263 Completed 200502/14/2013 Not Available [facility] 3 02:00:19 Problem Notes None recorded. Procedures Surgical History Date Name Laterality Status Provider Name and Address Organization Details Recorded Time 1 Generic Procedure Template completed Wilfrido Medrano MD [address] [place] [address], [phone], [facility] 05/08/2020 17:49:22 0 93976: Therapeutic Exercise completed Deidre Collins DPT [address] [place] [address], [phone], [facility] 11/21/2019 10:51:50 0 13850: Therapeutic Exercise completed Deidre Collins DPT [address] [place] [address], [phone], [facility] 10/31/2019 11:10:25 0 50040: Therapeutic Exercise completed Deidre Collins DPT [address] [place] [address], [phone], [facility] 10/24/2019 15:10:35 0 16887: Therapeutic Exercise completed Deidre Collins DPT [address] [place] [address], [phone], [facility] 10/17/2019 12:22:24 0 Physical Activity Counselling completed Deidre Collins DPT [address] [place] [address], [phone], [facility] 10/10/2019 12:01:52 0 87311: PT Eval Low Complexity completed Deidre Collins DPT [address] [place] [address], [phone], [facility] 10/10/2019 12:06:22 Imaging Results Imaging Date Name Status LastModified by Organiz ation Details LastModified Time 08/18/2020 XR, hand completed [facility] (Im[facility]) [address], [place], [address], 09/08/2020 14:46:35 Procedure Notes None recorded. Medical Equipment None Reported. Allergies No known drug allergies Medications Name Sig Start Date Stop Date Status Note LastModified by Organization Details LastModified Time prednison e 10 mg tablet TK 1 AND 1/2 TS PO D WF 09/23 completed Pt not taking Not Available Not Available Not Available doxycycli ne hyclate 100 mg capsule TK 1 C PO BID FOR 7 DAYS 08/12 completed Not Available Not Available Not Available sumatript an 100 mg tablet TAKE 1 TABLET BY MOUTH AT ONSET OF HEADACHE . MAY REPEAT DOSE IN 2 HOURS NEEDED. DO NOT TAKE MORE THAN 2 TABLETS IN 24 HOUR PERIOD 09/23 completed Not Available Not Available Not Available ondansetr on HCl 4 mg tablet TAKE 1 TABLET BY MOUTH EVERY 8 HOURS 09/23 completed Not Available Not Available Not Available prednison e 5 mg tablet TK 2 TS PO QD 09/23 completed Pt not taking Not Available Not Available Not Available cyanocoba adela (vit B-12) 1,000 mcg tablet TAKE 1 TABLET BY MOUTH DAILY 09/23 completed Not Available Not Available Not Available ciproflox acin 250 mg tablet TAKE 1 TABLET BY MOUTH EVERY 12 HOURS FOR 10 DAYS 09/23 completed Not Available Not Available Not Available leflunomi de 20 mg tablet TAKE 1 TABLET BY MOUTH EVERY DAY 09/23 completed Not Available Not Available Not Available baclofen 10 mg tablet TK 1 T PO TID PRN 09/23 completed Pt not taking Not Available Not Available Not Available cephalexi n 500 mg capsule TAKE 1 CAPSULE BY MOUTH 4 TIMES A DAY FOR 7 DAYS 09/23 completed Not Available Not Available Not Available losartan 25 mg tablet TAKE 1 TABLET BY MOUTH DAILY 09/23 completed Not Available Not Available Not Available diclofena c sodium 75 mg tablet,de layed release TK 1 T PO BID 09/23 completed Pt not taking Not Available Not Available Not Available lisinopri l 5 mg tablet TAKE 1 TABLET BY MOUTH DAILY 05/04 completed Not Available Not Available Not Available hydroxych loroquine 200 mg tablet TAKE 1 TABLET BY MOUTH TWICE DAILY 09/23 completed Not Available Not Available Not Available loratadin e 10 mg tablet TAKE 1 TABLET BY MOUTH DAILY FOR 7 DAYS 09/23 completed Not Available Not Available Not Available nitrofura ntoin monohydra te/macroc rystals 100 mg capsule TAKE 1 CAPSULE BY MOUTH TWICE DAILY FOR 5 DAYS 05/04 completed Not Available Not Available Not Available lactulose 10 gram/15 mL oral solution TAKE 15 ML BY MOUTH DAILY FOR 7 DAYS NEEDED FOR CONSTIPA TION 09/23 completed Not Available Not Available Not Available Femara 01/03 completed Pt not taking Not Available Not Available Not Available Humira Pen 40 mg/0.8 mL subcutane ous kit INJECT 0.4 ML UNDER THE SKIN EVERY 2 WEEKS 09/23 completed Pt did not take Not Available Not Available Not Available Humira(CF ) Pen 40 mg/0.4 mL subcutane ous kit INJ 0.4 ML SUBQ EVERY 2 WEEKS 09/23 completed Not currentl y taking Not Available Not Available Not Available Paxlovid 300 mg (150 mg x 2)-100 mg tablets in a dose pack TAKE 3 TABLETS BY MOUTH TWICE DAILY FOR 5 DAYS 09/23 completed Not Available Not Available Not Available Vitals Date Recorded Body height Body mass index (BMI) Body weight Provider Name and Address Organization Details Last Updated DateTime 04/18/2020 170.18 cm 19.6 kg/m2 41855.05 g Aleksandra Todd [facility] [facility] 04/18/2020 10:33:10 Date Recorded Body height Body mass index (BMI) Body weight Heart rate Systolic blood pressure Diastolic blood pressure Provider Name and Address Organization Details Last Updated DateTime 1 170.18 cm 19.6 kg/m2 76783.0 5 g 84 /min 148 mm[Hg] 80 mm[Hg] Aleksandra Todd [facility] 11:06:26 Date Recorded Body height Body mass index (BMI) Body weight Systolic blood pressure Diastolic blood pressure Systolic blood pressure Diastolic blood pressure Provider Name and Address Organization Details Last Updated DateTime 1 170.18 cm 19.6 kg/m2 56597.0 5 g 134 mm[Hg] 94 mm[Hg] 164 mm[Hg] 87 mm[Hg] Aleksandra Todd [facility] 08:16:38 Date Recorded Body height Body mass index (BMI) Body weight Provider Name and Address Organization Details Last Updated DateTime 05/04/2021 170.18 cm 19.6 kg/m2 11986.05 g Keri Mckee [facility] 05/04/2021 11:38:47 Date Recorded Body height Body mass index (BMI) Body weight Heart rate Systolic blood pressure Diastolic blood pressure Provider Name and Address Organization Details Last Updated DateTime 2 170.18 cm 19.5 kg/m2 35716.8 9 g 77 /min 140 mm[Hg] 82 mm[Hg] Keri Mckee LPN [facility] 2 13:18:21 Social History Question Answer Notes LastModified by Organizat ion Details LastModified Time Tobacco Smoking Status Former Smoker Not Available [employer] 02/11/2011 04:53:49 What Is Your Level Of Alcohol Consumption? Occasional 1-3 Wine/bee r Per Week [email or web address] Information not available 03/06/2019 Which Illicit Or Recreational Drugs Have You Used? No [email or web address] Information not available 02/11/2011 What Is Your Occupation? [employer] [email or web address] Information not available 02/11/2011 What Was The Date Of Your Most Recent Tobacco Screening? 06/26/2017 Information not available 10/18/2018 At What Age Did You Start Smoking Tobacco? 38 [email or web address] Information not available 02/11/2011 Sex: Unknown Functional Status None recorded. Mental Status None recorded. Family History Relationship Description Onset Age of this Age Resolved Age Notes LastModified by Organization Details LastModified Time Mother Arthritis Not available 05/20/2015 18:15:12 Medical History Condition Response Anemia Y Rheumatoid Arthritis Y CANCER Y Gynecological HistoryNo gynecological history recorded. Obstetrics History GPAL:G 0 P 0 0 0 0 Immunizations Vaccine Type Date Status Note Provider Nam e and Address Organization Details Recorded Time Influenza, split virus, quadrivalent, preservative 7 completed KEVYN Quintanilla [facility] 06/24/2017 10:56:21 Influenza, split virus, quadrivalent, preservative 1 completed KEVYN Munoz [facility] 05/04/2021 11:40:41 COVID-19, mRNA, LNP-S, PF, 100 mcg/0.5mL dose or 50 mcg/0.25mL dose 1 completed KEVYN Munoz [facility] 05/04/2021 11:40:56 COVID-19, mRNA, LNP-S, PF, 100 mcg/0.5mL dose or 50 mcg/0.25mL dose 1 completed KEVYN Munoz, [facility] 05/04/2021 11:41:05 COVID-19, mRNA, LNP-S, PF, 100 mcg/0.5mL dose or 50 mcg/0.25mL dose 1 completed KEVYN Munoz [facility] 05/04/2021 11:41:21 Past Encounters Encounter ID Performer Location Encounter Start Date Encounter Closed Date Diagnosis/Indication Diagnosis SNOMED-CT Code Diagnosis ICD10 Code Diagnosis Note [id number] Zachariah riverovera [facility] [place] [address] 02/01/2005 13:01:46 02/01/2005 15:05:43 [id number] LAB - [facility] [place] [id number] 02/01/2005 13:27:54 02/01/2005 13:28:16 [id number] Zachariah ron [facility] [place] [id number] 05/31/2005 13:02:57 06/01/2005 07:19:46 [id number] [facility] - [facility] [place] [id number] 1 06/28/2005 15:54:14 06/28/2005 15:54:29 [id number] Zachariah ron [facility] [place] [id number] 1 06/28/2005 15:45:20 06/29/2005 13:20:44 [id number] Zachariah ron [facility] [place] [id number] 1 08/24/2005 08:15:29 08/24/2005 15:17:08 [id number] LAB - [facility] [place] [id number] 1 08/24/2005 08:45:16 08/24/2005 09:01:00 [id number] [facility] - [facility] [place] [id number] 1 10/12/2005 08:54:54 10/12/2005 08:55:05 [id number] Rheumatol ogvera [facility] [place] [id number] 1 10/12/2005 08:24:25 10/13/2005 14:21:02 [id number] Rheumatol asaf [facility] [place] [address] 12/14/2005 08:14:43 12/15/2005 06:34:08 [id number] LAB - [facility] [place] [id number] 1 12/14/2005 09:00:17 12/14/2005 09:00:33 [id number] Radiology [facility] [place] [id number] 12/17/2005 15:17:46 04/17/2008 02:02:29 [id number] Jenniferol asaf [facility] [place] [id number] 1 02/22/2006 08:01:00 02/22/2006 11:31:18 [id number] LAB - [facility] [place] [id number] 1 02/22/2006 08:03:59 02/22/2006 08:04:15 [id number] LAB - [facility] [place] [id number] 1 04/25/2006 13:38:09 04/25/2006 13:38:18 [id number] LAB - [facility] [place] [id number] 1 05/17/2006 08:33:41 05/17/2006 08:33:49 [id number] Jenniferol asaf [facility] [place] [id number] 1 05/20/2006 07:56:17 05/20/2006 14:42:26 [id number] LAB - [facility] [place] [id number] 1 06/20/2006 12:51:18 06/20/2006 12:51:26 [id number] Rheumatol asaf [facility] [place] [id number] 1 07/29/2006 14:16:14 07/29/2006 14:21:47 [id number] [place] [id number] 1 07/29/2006 14:56:48 07/29/2006 14:56:56 [id number] Rheumatol asaf [facility] [place] [id number] 1 09/09/2006 08:14:09 09/12/2006 06:46:21 [id number] LAB - [facility] [place] [id number] 1 09/09/2006 08:43:35 09/09/2006 09:05:18 [id number] Rheumatol asaf [facility] [place] [id number] 1 12/08/2006 07:55:06 12/08/2006 10:22:06 [id number] LAB - [facility] [place] [id number] 1 12/08/2006 08:15:51 12/08/2006 08:16:20 [id number] LAB - [facility] [place] [id number] 1 04/06/2007 12:59:12 04/06/2007 12:59:20 [id number] Rheumatol asaf [facility] [place] [id number] 1 04/11/2007 08:24:57 04/17/2008 02:02:29 [id number] LAB - [facility] [place] [address] 1 08/01/2007 09:47:46 08/01/2007 09:48:04 [id number] Rheumatol asaf [facility] [place] [id number] 1 08/07/2007 13:20:28 04/17/2008 02:02:29 [id number] LAB - [facility] [place] [id number] 1 01/02/2008 11:42:14 01/02/2008 11:42:30 [id number] Rheumatol asaf [facility] [place] [id number] 1 02/12/2008 15:14:32 04/17/2008 02:02:29 [id number] Rheumatol asaf [facility] [place] [id number] 1 04/11/2008 08:50:05 04/17/2008 02:02:29 [id number] Zachariah ron [facility] [place] [id number] 1 06/05/2008 07:51:10 06/07/2008 09:04:02 [id number] Zachariah ron [facility] [place] [id number] 1 09/10/2008 14:55:30 09/11/2008 10:18:41 [id number] Rheumatol asaf [facility] [place] [address] 1 12/10/2008 08:14:46 12/11/2008 09:42:20 [id number] LAB - [facility] [place] [id number] 1 06/05/2008 08:23:28 06/05/2008 08:23:47 [id number] LAB - [facility] [place] [id number] 1 09/09/2008 15:19:01 09/09/2008 15:19:09 [id number] LAB - [facility] [place] [id number] 1 09/09/2008 00:00:00 01/23/2009 02:00:52 [id number] LAB - [facility] [place] [id number] 1 12/06/2008 11:44:39 12/06/2008 11:44:57 [id number] LAB - [facility] [place] [id number] 1 12/06/2008 00:00:00 01/23/2009 02:00:52 [id number] Zachariah ron [facility] [id number] 1 06/23/2009 15:55:05 06/24/2009 08:57:12 [id number] Zachariah ron [facility] [place] [id number] 1 04/21/2010 08:15:48 04/21/2010 12:54:59 [id number] Zachariah ron [facility] [id number] 1 09/21/2010 09:32:06 09/22/2010 08:55:59 [id number] Radiology , [address] [place] [address] 09/21/2010 10:18:45 09/21/2010 10:44:23 [id number] Rheumatol [facility], [address] [place] [id number] 08/05/2011 08:14:19 08/09/2011 08:42:06 [id number] Rheumatol [facility], [address] [place] [address] 08/07/2012 08:14:16 08/07/2012 08:41:34 [id number] Ramandeep Natarajan Rheumatol [facility], [address] [place] [address] 08/24/2013 08:29:43 08/27/2013 09:55:57 Rheumatoid arthritis 62768962 Long hx RA, Basically Stable. Minor progressio n on x ray over 2-3 years. Discussed. She is not anxious to change medication s and whatever damage there is occurs at a very slow pace. No change treatment for now. Vitamin D deficiency 79910165 Says PCP check Vit D last year and it was very low . Was given weekly supplemnet for 2 mo, but has not been taking any supplement lately. Advised 2000 iu/d D3. Long-term drug therapy 901266660 No signs or sx's leflunamid e toxicity. Lax about lab follow up, but getting better. Discussed. [id number] Rheumatol og, [address] [place] [address] 08/12/2014 10:56:10 08/13/2014 09:50:11 Rheumatoid arthritis 59542470 Long hx RA, Basically Stable. Minor progressio n on x ray over 2-3 years. Discussed. She is not anxious to change medication s and whatever damage there is occurs at a very slow pace. No change treatment for now. Has not been reliably compliant with lab testing on the LEF. Will prescribe 3 mo supply at a time. Long-term drug therapy 782130471 No signs or sx's leflunamid e toxicity. Lax about lab follow up, but getting better. Discussed. [id number] Wilfrido Medrano MD Rheumatol [address] [place] [address] 05/20/2015 14:34:56 05/21/2015 07:27:18 Rheumatoid arthritis 55746339 M06.9 Long history of rheumatoid arthritis, some erosive disease. There has been very slow progressio n of erosive disease. We should update an x-ray and compared to 2013. Her arthritis had been under very good control with leflunomid e plus Plaquenil. She stopped both of these medication s after the summer, now back on leflunomid e for about 3 months but with incomplete improvemen t. We discussed therapeuti c options. She was previously intolerant of methotrexa te. She was intolerant of sulfasalaz ine. We can keep her on the leflunomid e, put her back on Plaquenil and see if the combinatio n is adequately effective. I want to reevaluate her in about 6 weeks. If there is no improvemen t, we can think about putting her on Humira.He is taken, however, of her history of breast cancer. He was several years ago. The Humira is probably safe, but there are no guarantees . Long-term drug therapy 257186585 Z79.899 No signs or sx's leflunamid e toxicity. Lax about lab follow up, but getting better. Discussed. Primary ma lignant neoplasm of female breast 03310808 C50.919 History of breast cancer. No evidence of disease. We need to discuss risk/benef it with the Humira in view of this history. [id number] Wilfrido Medrano MD Rheumatol [facility], [facility] [address] [place] [address] 07/01/2015 14:17:06 07/01/2015 14:56:39 Rheumatoid arthritis 43958664 M06.9 Long history of rheumatoid arthritis, some erosive disease. There has been very slow progressio n of erosive disease. X rays reviewed today. Her arthritis had been under very good control with leflunomid e plus Plaquenil. She stopped both of these medication s after the summer, now back on medication s and once again doing fairly well. We discussed other therapeuti c options. She was previously intolerant of methotrexa te. She was intolerant of sulfasalaz ine. She considers the TNF drugs last resort , wants to avoid. I think it is perfectly reasonable to continue current LEF + Plaquenil, follow labs. Probably should update x rays early 2016. [id number] Wilfrido Medrano MD Rheumatol [address] [address] 11/04/2015 08:15:36 11/04/2015 08:46:41 Rheumatoid arthritis 10857725 M06.9 Long history of rheumatoid arthritis, some erosive disease. There has been very slow progressio n of erosive disease. . Her arthritis had been under very good control with leflunomid e plus Plaquenil. She stopped both of these medication s summer 2015, now back on medication s and once again doing fairly well. Advised switching Plaquenil to 400 q AM for better compliance . We discussed other therapeuti c options. She was previously intolerant of methotrexa te. She was intolerant of sulfasalaz ine. She considers the TNF drugs last resort , wants to avoid. I think it is perfectly reasonable to continue current LEF + Plaquenil, follow labs. Probably update x rays early 2016. I will see her then. Long-term drug therapy 130102731 Z79.899 No signs or sx's leflunomid e toxicity. Lax about lab follow up, but getting better. Discussed. [id number] Wilfrido Medrano MD Rheumatol [address] [address] 05/10/2016 13:03:01 05/11/2016 07:30:19 Rheumatoid arthritis 23926297 M06.9 Long history of rheumatoid arthritis, some erosive disease. There has been very slow progressio n of erosive disease. . Her arthritis had been under very good control with leflunomid e plus Plaquenil. She stopped both of these medication s summer 2015, now back on medication s and once again doing very well. Could try reducing dose of Plaquenil to 200 mg/d, continue LEF. Update hand x rays to look for progressiv e erosion. Follow up labs May,. RV with me 6 mo. Long-term drug therapy 781959039 Z79.899 No signs or sx's leflunomid e toxicity. Lax about lab follow up, but getting better. Labs 02/26/16 all OK. Discussed. [id number] Wilfrido Medrano MD Rheumatol [address] [place] [address] 11/08/2016 12:49:36 11/08/2016 13:14:44 Rheumatoid arthritis 99411513 M06.9 Long history of rheumatoid arthritis, some erosive disease. There has been very slow progressio n of erosive disease, though exrays stable 2015. . Her arthritis had been under very good control with leflunomid e plus Plaquenil. No worse on lower dose Plaquenil. Advised cont Plaquenil. Try reducing LEF: take 20 mg 5 days per week. If still dong well 3 mo from now, reduce to 4 pills per week Update labs today and in Nov. Return 6 mo. Long-term drug therapy 701479116 Z79.899 No signs or sx's leflunomid e toxicity. Up to date on eye exams. Lax about lab follow up, but getting better. Discussed. [id number] Wilfrido Medrano MD Rheumatol mat, [address] [place] [address] 06/24/2017 10:42:47 06/24/2017 13:00:57 Rheumatoid arthritis 33862549 M06.9 Long history of rheumatoid arthritis, some erosive disease. There has been very slow progressio n of erosive disease, though xrays stable 2015. . Her arthritis had been under very good control with leflunomid e plus Plaquenil. Some recent flare in sxs. She thinks flare up seems to be abating. Will give short course of prednsione . Continue LEF, but try to remember to take it daily. Cont Plaquenil. If not clearly improved a month from now, must call to make appt. Could consider adding SSZ. Update labs today and in 3 mo. . Return 6 mo. Long-term drug therapy 278133104 Z79.899 No signs or sx's leflunomid e toxicity. Up to date on eye exams. Lax about lab follow up, but getting better. Discussed. Bunion 934468350 M21.61 9 Prominent bunion. Difficulty wearing shoes.Sugg est she could be [facility] at [facility] for suggestion s. [id number] Wilfrido Medrano MD Rheumatol asaf, [address] [place] [address] 03/06/2019 15:30:21 03/08/2019 06:15:41 Rheumatoid arthritis 37394813 M06.9 Long history of rheumatoid arthritis, some erosive disease. There has been very slow progressio n of erosive disease, though xrays stable 2015 - 2016. . Her arthritis had been under very good control with leflunomid e and Plaquenil. She stopped the Plaquenil subsequent to last visit.Some recent flare in ankle sxs. She thinks flare up seems to be abating. Will update x rays. I imagine there has been some progressio n over nearly 3 years. Could consider adding SSZ. Recent labs OK. Repeat in 3 mo. . Return 6 mo. Long-term drug therapy [id number] Z79.899 No signs or sx's leflunomid e toxicity. Up to date on eye exams. Lax about lab follow up, but getting better. Discussed. Vitamin D deficiency 347 03066 E55.9 Says PCP check Vit D last year and it was very low . Was given weekly supplemnet for 2 mo, but has not been taking any supplement lately. Will order repeat vit D at next lab [id number] Wilfrido Medrano MD Rheumatol asaf, [address] [place] [address] 08/10/2019 13:14:25 08/13/2019 07:00:11 Rheumatoid arthritis 70564044 M06.9 Long history of rheumatoid arthritis, some erosive disease. There has been very slow progressio n of erosive disease. Her arthritis had been under very good control with leflunomid e and Plaquenil. She stopped the Plaquenil a year ago. She had some return of sxs and back on Plaq now. Currently significan t flare is sxs especially shoulders, but also hands, wrists and other joints. No particular involvemen t of hips. PMR is possible, but lack of involvemen t around hips and the significan t flare in sxs hands and wrists would be unusual.I think current sxs are more likely a flare of underlying RA. Plan: Increase Plaquenil to 200 bid.Predni sone 15/d for 2 wks, 10/d for 2 wks, then will try to taper quickly. If sxs recur, then can either try adding SSZ or add Biologic (intoleran t of MTX in remote past). Check labs in 2 wks.She needs to call and report sxs in 4 wks. [id number] Wilfrido Medrano MD Rheumatol asaf, [address] [place], [place] [address] 09/07/2019 08:48:39 09/10/2019 07:22:53 Rheumatoid arthritis 65514957 M06.9 Long history of rheumatoid arthritis, some erosive disease. There has been very slow progressio n of erosive disease. Her arthritis had been under very good control with leflunomid e and Plaquenil. She stopped the Plaquenil a year ago. She had some return of sxs and back on Plaq now. 6 weeks ago, significan t flare is sxs especially shoulders, but also hands, wrists and other joints. No particular involvemen t of hips. I thought PMR possible, but lack of involvemen t around hips and the significan t flare in sxs hands and wrists would be unusual.I thought current sxs are more likely a flare of underlying RA. Plan:Taper pred by 2.5 mg/wk. Call and report when off Pred.If sxs recur, then can either try adding SSZ or add Biologic (intoleran t of MTX in remote past). [id number] Deidre Collins DPT Physical Therapy, [address] [place], [place] [address] 10/10/2019 10:33:00 10/10/2019 14:07:17 Neck pain 14735983 M54.2 [id number] Deidre Collins DPT Physical Therapy, [address] [place], [place] [address] 10/17/2019 10:34:47 10/17/2019 12:40:37 Neck pain 64177537 M54.2 [id number] Deidre Collins DPT Physical Therapy, [address] [place], [place] [address] 10/24/2019 10:28:53 10/24/2019 21:39:41 Neck pain 71731107 M54.2 [id number] Deidre Collins DPT Physical Therapy, [address] [place], [place] [address] 10/31/2019 10:31:16 10/31/2019 13:17:00 Neck pain [id number] M54.2 [id number] Deidre Collins, SELINA [facility], [address] [place], [place] [address] 11/21/2019 10:31:31 11/21/2019 11:27:59 Neck pain 05785984 M54.2 [id number] Wilfrido Medrano MD Rheumatol og, [address] [place], [place] [address] 12/04/2019 10:31:02 12/06/2019 06:51:47 Rheumatoid arthritis 08666923 M06.9 Long history of rheumatoid arthritis, some erosive disease. There has been very slow progressio n of erosive disease. Her arthritis had been under very good control with leflunomid e and Plaquenil. She stopped the Plaquenil a year ago. She had some return of sxs and back on Plaq now. Responded well to course of prednisone , but swelling, sxs have returned. Plan:Start HumiraDisc ussed options. Appropriat e for initiation of biologic. Discussed Humira. Specifical ly dicussed risks of infection, potentiall y serious, low but definite risk of lymphoma. Need to check PPD.Start Humira after prior authorizat ion. Needs to return for instructio n in injection. Check TB spotContin ue LEF, Plaquenil. bridging course of low dose prednisone . Note to reviewers: Dx: Seropositv e RA (M )MTX 2008: intolerant Leflunomid e 2007 - present ineffectiv ePlaquenil 2007 - present ineffectiv e. [id number] Wilfrido Medrano MD Rheumatol ogy, [address] [place], [place] [address] 01/15/2020 10:25:59 01/16/2020 19:31:29 Rheumatoid arthritis 72426262 M06.9 Long history of rheumatoid arthritis, some erosive disease. There has been very slow progressio n of erosive disease. Her arthritis had been under very good control with leflunomid e and Plaquenil. She stopped the Plaquenil a year ago. She had some return of sxs and back on Plaq now. Responded well to course of prednisone . The plan had been to start Humira. PA approved etc.Naldo mcghee, she was reluctant to start, and her sx flare has entirely resolved after course of prednisone . OK to hold off on humira for now, BUT I did I her promise to call is sxs flare and she says she would then strongly consider going on the Humira. Continue Plaquenil + LEF. Note to reviewers: Dx: Seropositv e RA (M 05.79)MTX 2008: intolerant Leflunomid e 2008 - present ineffectiv ePlaquenil 2007 - present ineffectiv e. [id number] Wilfrido Medrano MD Rheumatol [address] [address] 04/18/2020 10:27:34 04/22/2020 05:58:08 Rheumatoid arthritis 73945908 M06.9 Long history of rheumatoid arthritis, some erosive disease. There has been very slow progressio n of erosive disease. Her arthritis had been under very good control with leflunomid e and Plaquenil. She stopped the Plaquenil a year ago. She had some return of sxs and back on Plaq now. The plan had been to start Humira. PA approved etc. However, she was reluctant to start, and her sx flare has entirely resolved after course of prednisone . OK to continue hold off on humira for now, BUT I did have her promise to call is sxs flare and she says she would then strongly consider going on the Humira. Continue Plaquenil + LEF. Should probably repeat hand x rays later this year. Note to reviewers: Dx: Seropositv e RA (M 81) MTX 2008: intolerant Leflunomid e 2008 - present ineffectiv e Plaquenil 2007 - present ineffectiv e. [id number] Wilfrido Medrano MD Rheumatol [facility], [address] [address] 05/08/2020 10:43:52 05/09/2020 06:54:38 Rheumatoid arthritis 72890259 M06.9 Long history of rheumatoid arthritis, some erosive disease. There has been very slow progressio n of erosive disease. Her arthritis had been under very good control with leflunomid e and Plaquenil. She stopped the Plaquenil a year ago. She had some return of sxs and back on Plaq now. The plan had been to start Humira. DELIO approved etc. However, she was reluctant to start, and her sx flare has entirely resolved after course of prednisone . Now again has inflammati on, but mostly R elbow. I pointed out that probably has low grade inflammati on doing damage elsewhere. Still suggest she go on Humira as previously discussed. Continue Plaquenil + LEF. Should probably repeat hand x rays later this year. Note to reviewers: Dx: Seropositv e RA (M ) MTX 2007: intolerant Leflunomid e 2008 - present ineffectiv e Plaquenil 2007 - present ineffectiv e. Effusion o f joint of right elbow [id number] M25.421 Symptomati c inflammato ry effusion r elbow. Local injection today. [id number] Wilfrido Medrano MD Rheumatol [facility] [place], [facility] [address] [facility] [facility] [place] [phone] 08/12/2020 08:07:22 08/13/2020 19:29:04 Rheumatoid arthritis [id number] M06.9 Long history of rheumatoid arthritis, some erosive disease. There has been very slow progressio n of erosive disease. Her arthritis had been under very good control with leflunomid e and Plaquenil. She stopped the Plaquenil a couple of years ago. She had some return of sxs and back on Plaq now. The plan had been to start Humira. DELIO approved etc. However, she was reluctant to start, and her sx flare has entirely resolved after course of prednisone . However, I pointed out that probably has low grade inflammati on doing gradual damage to the joints. Still suggest she go on Humira as previously discussed. Continue Plaquenil + LEF. Repeat hand films and discuss results with Dr Edwards at visit in 6 mo. Note to reviewers: Dx: Seropositv e RA (M ) MTX 2008: intolerant Leflunomid e 2008 - present ineffectiv e Plaquenil 2008 - present ineffectiv e. Long-term drug therapy [id number] Z79.899 No signs or sx's leflunomid e toxicity. Will confirm that she is up to date on eye exams. Lax about lab follow up, but getting better. Appt given for labs 3 mo. Discussed. [id number] Jennifer Edwards MD Rheumatol asaf, [facility] [address] [facility] [place] [phone] 05/04/2021 11:36:48 05/04/2021 12:41:23 Rheumatoid arthritis [id number] M06.9 Doing well for now. Continue plaquenil and leflunomid e.Renew meds.Check labs for disease activity and medication toxicity (standing orders).Delio dumas got the COVID booster and flu shot. She also got the pneumonia vaccine. RTC in 6 months or sooner if needed. Long-term drug therapy [id number] Z79.899 On leflunomid e and plaquenil. Monitor labs.Patie nt ot see ophthalmol ogy. Extensivel y conselled on that. Patient ot hold leflunomid e if fever or signs of infection. [id number] Jennifer Edwards MD Rheumatol asaf, [facility] [address] [place] [address] 11/03/2021 13:05:13 11/10/2021 08:24:14 Rheumatoid arthritis [id number] M06.9 Doing well for now. Continue plaquenil and leflunomid e.Renew meds.Check labs for disease activity and medication toxicity (standing orders).Delio dumas got the COVID series. She also got the pneumonia vaccine, records not available. Patient asked to check with her pcp on this, she needs to be UTD with pneumonia and Shingrix vaccinatio n.Patient to get flu shot in the fall. RTC in 6 months or sooner if needed. Long-term drug therapy [id number] Z79.899 On leflunomid e and plaquenil. Monitor labs.Heather nue to follow with ophthalolo gy. Patient to hold leflunomid e if fever or signs of infection. Anemia [id number] D64.9 Low B12.Patien t to call her PCP for replacemen t.Early end labs to pcp.Iron borderline , also. Essential hypertension [id number] I10 Patient is on leflunomid e and I asked her to have her blood pressure monitored at PCP. Health Concerns Section Related Observation LastModified by Organization Detai ls LastModified Time None Recorded Concern Status LastModified by Organization Details LastModified Time None Recorded Advance Directives Directive None Recorded Payers Encounter Date Sequence Insurance Name Policy Number Policy Solorio Covered Member ID Solorio Member ID Guarantor Name 04/18/2020 1 [place]MEDICARE [place]PLAC[place] PPO) [id number] Samantha Scottell [id number] Samantha Roberta 05/08/2020 1 [place]MED[place]ARE [place] PPO) [id number] Samantha L Roberta [id number] Samantha Roberta 08/12/2020 1 [place]MED[place] PPO) [id number] Samantha Scottell [id number] Samantha Cherokee 05/04/2021 1 [place]MEDICARE [place]PL[place] PPO) [id number] Samantha Scottell [id number] Samantha Roberta 11/03/2021 1 [place]MEDICARE [place]PL[place] PPO) [id number] Samantha Scottell [id number] Samantha Scottell Notes Date Note Type Note Provider Name and Address Organization Details Recorded Time 04/18/2020 text/html Patient agreed t o this visit via non-secure telehealth platform due to the COVID -19 pandemic. The nature of the non-secure technology was discussed and the patient agreed to proceed. Patient understands this is a scheduled visit and the usual procedures with regard to billing and confidentiality apply. Patient was notified that the provider location is home Patient location: home During the visit the patient? s medical history and medical record were reviewed. Follow-up for this 69-year-old woman with rheumatoid arthritis for more than 10 years. She has had some mild erosive disease, very gradually progressive. I had been seeing her infrequently. She had been doing very well on the combination of Plaquenil plus leflunomide. Summer 2014 went off her meds. She did have a flare in symptoms, restarted leflunomide and Plaquenil Mar 2015 . Stopped Plaquenil 2016. Had x rays done Feb 2019. some progression over 3 years, but we made no changes in therapy. Then in May 2019 fever. Then treated for pneumonia. , but then progressive general aching, 2+ hours of AM stiffness hands, wrists, R elbow with contracture, some sx in feet. Knees painful. Hips not bad. + gel phenomenon.Described contracture at R elbow.I prescribed Humira. However, she was very reluctant to start.She did a tapering course of prednisone over 4-5 weeks, off entirely for 3 months. She continues to feel fine. R Elbow contracture has mostly resolved, but still some limitation and mild discomfort.No AM stiffness. She does not see swelling. Had another episode of pneumonia in Jan 2020.No cough or SOB. History of breast cancer > 10 yrs ago. No sign recurrence. Wilfrido Medrano MD [address] [place] [address], [phone], [facility] 04/21/2020 10:18:08 05/08/2020 text/html Pt being seen in office today for pain and limitation r elbow, Sx's for 1-2 mo. No trauma.Otherwise doing well. 04/18/20 visit:Follow-up for this 69-year-old woman with rheumatoid arthritis for more than 10 years. She has had some mild erosive disease, very gradually progressive. I had been seeing her infrequently. She had been doing very well on the combination of Plaquenil plus leflunomide. Summer 2014 went off her meds. She did have a flare in symptoms, restarted leflunomide and Plaquenil Mar 2015 . Stopped Plaquenil 2016. Had x rays done Feb 2019. some progression over 3 years, but we made no changes in therapy. Then in May 2019 fever. Then treated for pneumonia. , but then progressive general aching, 2+ hours of AM stiffness hands, wrists, R elbow with contracture, some sx in feet. Knees painful. Hips not bad. + gel phenomenon.Described contracture at R elbow.I prescribed Humira. However, she was very reluctant to start.She did a tapering course of prednisone over 4-5 weeks, off entirely for 3 months. She continues to feel fine. R Elbow contracture has mostly resolved, but still some limitation and mild discomfort.No AM stiffness. She does not see swelling. Had another episode of pneumonia in Jan 2020.No cough or SOB. History of breast cancer > 10 yrs ago. No sign recurrence. Wilfrido Medrano MD [address] [place] [address], [phone], [facility] 05/08/2020 17:53:02 08/12/2020 text/html Patient agreed t o this visit via non-secure telehealth platform due to the COVID -19 pandemic. The nature of the non-secure technology was discussed and the patient agreed to proceed. Patient understands this is a scheduled visit and the usual procedures with regard to billing and confidentiality apply. Patient was notified that the provider location is home Patient location: home During the visit the patient? s medical history and medical record were reviewed. Follow-up for this 69-year-old woman with rheumatoid arthritis for more than 10 years. She has had some mild erosive disease, very gradually progressive. I had been seeing her infrequently. She had been doing very well on the combination of Plaquenil plus leflunomide. Summer 2014 went off her meds. She did have a flare in symptoms, restarted leflunomide and Plaquenil Mar 2015 . Stopped Plaquenil 2016. Had x rays done Feb 2019. some progression over 3 years, but we made no changes in therapy. Then in May 2019 progressive general aching, 2+ hours of AM stiffness hands, wrists, R elbow with contracture, some sx in feet. Knees painful. + gel phenomenon.Described contracture at R elbow.I prescribed Humira. However, she was very reluctant to start.She did a tapering course of prednisone and all improved except residual sxs R elbow.Elbow injected Apr 2020 with full resolution.No AM stiffness. She does not see swelling. Currently feels fine. No joint sxs.Current meds leflunomide 20/d, Plaquenil 200 bid. History of breast cancer > 10 yrs ago. No sign recurrence. Wilfrido Medrano MD [address] [place] [address], [phone], [facility] 08/13/2020 07:49:48 05/04/2021 text/html This is a virtua l phone visit. Patient agreed to this visit via phone or secure telehealth platform due to the COVID -19 pandemic. Patient understands this is a scheduled visit and the usual procedures with regard to billing and confidentiality apply.Patient was notified that the provider location is homePatient location: homeDuring the visit the patient? s medical history and medical record were reviewed. Patient is 70 y old female following-up on rheumatoid arthritis. Patient use to see Dr. Medrano. Patient states that she is feeling well. No joint pain, no swelling. No stiffness.No rash. No numbness , no tingling. Patient is on leflunomide 20 mg daily and plaquenil twice a day.Patient is due to see ophthalmology. No recent labs. As per previous visit with Dr. Medrano: During the visit the patient? s medical history and medical record were reviewed. Follow-up for this 69-year-old woman with rheumatoid arthritis for more than 10 years. She has had some mild erosive disease, very gradually progressive. I had been seeing her infrequently. She had been doing very well on the combination of Plaquenil plus leflunomide. Summer 2014 went off her meds. She did have a flare in symptoms, restarted leflunomide and Plaquenil Mar 2015 . Stopped Plaquenil 2016. Had x rays done Feb 2019. some progression over 3 years, but we made no changes in therapy. Then in May 2019 progressive general aching, 2+ hours of AM stiffness hands, wrists, R elbow with contracture, some sx in feet. Knees painful. + gel phenomenon.Described contracture at R elbow.I prescribed Humira. However, she was very reluctant to start.She did a tapering course of prednisone and all improved except residual sxs R elbow.Elbow injected Apr 2020 with full resolution.No AM stiffness. She does not see swelling. Currently feels fine. No joint sxs.Current meds leflunomide 20/d, Plaquenil 200 bid. History of breast cancer > 10 yrs ago. No sign recurrence. Monae Edwards MD [address] [place] [address], [phone], [facility] 05/04/2021 12:21:31 11/03/2021 text/html Patient is 71 y old female following-up on rheumatoid arthritis. Patient states that she is doing well. No pain or swelling. Occasional aching in the right elbow.Gets sometimes numbness in the right hand when she overuses it, this is an old problem, not new.No diarrhea or weight loss. Patient is on leflunomide 20 mg daily and plaquenil twice a day.Patient jus saw ophthalmology. Labs reviewed. Previous visit on 05/04/21:Patient is 70 y old female following-up on rheumatoid arthritis. Patient use to see Dr. Medrano. Patient states that she is feeling well. No joint pain, no swelling. No stiffness.No rash. No numbness , no tingling. Patient is on leflunomide 20 mg daily and plaquenil twice a day.Patient is due to see ophthalmology. No recent labs. As per previous visit with Dr. Medrano: During the visit the patient? s medical history and medical record were reviewed. Follow-up for this 69-year-old woman with rheumatoid arthritis for more than 10 years. She has had some mild erosive disease, very gradually progressive. I had been seeing her infrequently. She had been doing very well on the combination of Plaquenil plus leflunomide. Summer 2014 went off her meds. She did have a flare in symptoms, restarted leflunomide and Plaquenil Mar 2015 . Stopped Plaquenil 2016. Had x rays done Feb 2019. some progression over 3 years, but we made no changes in therapy. Then in May 2019 progressive general aching, 2+ hours of AM stiffness hands, wrists, R elbow with contracture, some sx in feet. Knees painful. + gel phenomenon.Described contracture at R elbow.I prescribed Humira. However, she was very reluctant to start.She did a tapering course of prednisone and all improved except residual sxs R elbow.Elbow injected Apr 2020 with full resolution.No AM stiffness. She does not see swelling. Currently feels fine. No joint sxs.Current meds leflunomide 20/d, Plaquenil 200 bid. History of breast cancer > 10 yrs ago. No sign recurrence. Monae Edwards MD [address] [place] [address], [phone], [facility] 11/03/2021 13:52:03 OBGyn Episode No OBEpisode recorded.
[2024-05-10 13:09] LABS: Basophils Percent Auto 0.5 % (0-2); Eosinophils Absolute Auto 0.2 X10*3/uL (0.0-0.4); Eosinophils Percent Auto 2.7 % (0-4); Hematocrit 36.8 % (37.0-47.0); Hemoglobin 11.6 g/dl (12.0-16.0); Imm Gran Abs Auto 0.01 X10*3/uL (0.00-0.03); Imm Gran Pct Auto 0.2 % (0.0-0.4); Lymphocytes Percent Auto 17.7 % (20-40); Mean Corpuscular HGB Conc 31.5 g/dl (31.0-35.0); Mean Corpuscular Hemoglobin 28.4 pg (27.0-33.0); Mean Corpuscular Volume 90.2 fL (80.0-98.0); Mean Platelet Volume 10.5 fL (9.4-12.3); Monocytes Absolute Auto 0.5 X10*3/uL (0.1-1.2); Monocytes Percent Auto 7.8 % (2-11); Neutrophils Absolute Auto 4.2 x10*3/uL (2.0-8.3); Neutrophils Percent Auto 71.1 % (45-73); Platelet Count 257 X10*3/uL (160-400); Red Blood Count 4.08 X10*6/uL (4.20-5.50); Red Cell Distribution Width 14.3 % (11.0-16.0); White Blood Count 5.9 X10*3/uL (4.8-10.8)
[2024-05-10 13:46] LABS: Erythrocyte Sedimentation Rate 19 MM/HR (0-20)
[2024-05-10 13:49] LABS: Alanine Aminotransferase 33 U/L (0-31); Albumin Level 3.9 g/dL (3.5-5.0); Alkaline Phosphatase 49 U/L (39-117); Anion Gap 13 (12-20); Aspartate Amino Transferase 35 U/L (5-31); Bilirubin Total 0.3 mg/dL (0.0-1.0); Blood Urea Nitrogen 15 mg/dL (9-16); C Reactive Protein 0.27 mg/dL (< or = 0.50); Calcium 9.5 mg/dL (8.4-10.2); Carbon Dioxide 24 mmol/L (22-29); Chloride 106 mmol/L (96-108); Estimated Glomerular Filt Rate > 60; Glucose Random 85 mg/dL (60-115); Potassium 4.8 mmol/L (3.3-5.1); Sodium 138 mmol/L (135-145); Total Protein 7.4 g/dL (6.5-8.0)
[2024-05-13 07:59] LABS: TS Negative Control Passed; TS Panel A 3; TS Panel B 1; TS Positive Control Passed; TSpotTB Negative (Negative)
== END 2024-05-10 11:53 | disposition home or self-care (01) ==
LOC: HO.LAB 11:52
PROVIDERS: PCP Nurse Practitioner Family; Visit Provider Internal Medicine Rheumatology
DX: M06.9 Rheumatoid arthritis, unspecified (principal); Z79.899 Other long term (current) drug therapy; Z51.81 Encounter for therapeutic drug level monitoring; Z79.60 Long term (current) use of unspecified immunomodulators and immunosuppressants
CPT/HCPCS: 36415; 80053; 85025; 85652; 86140; 86481

== ENCOUNTER 2024-05-11 09:59 | Outpatient (AMB) | payer BC, SELFPAY ==
[2024-05-11 10:11] VITALS: BP 134/100; PULSE 100; O2SAT 97; BMI 20.1
--- NOTE | 2024-05-11 10:11 | MHC.OFFVIS ---
Vital Signs 05/11/24 10:11 Height 5 ft 7 in Weight 128 lb 4 oz BMI 20.1 BP 134/100 H Blood Pressure Location Lt brachial Position Sitting Pulse 100 Pulse Source Pulse Oximeter Pulse Oximetry (%) 97 Oxygen Delivery Method Room Air Intake Visit Reasons: RA/labs done Intake Note: Patient present follow up RA. Allergies acetaminophen [From Vicodin] Allergy (Mild, Verified 05/11/24 10:13) Nausea hydrocodone [From Vicodin] Allergy (Mild, Verified 05/11/24 10:13) Nausea lisinopril Adverse Reaction (Mild, Verified 05/11/24 10:13) lips swelling Sulfa (Sulfonamide Antibiotics) Adverse Reaction (Mild, Verified 05/11/24 10:13) Rash HPI HPI RA/labs done: Details: MS pantoja. She had two episodes of PNA. Last epsiode in Mar 2024. She has been experiencing joint pain in hands, elbows, upper arms/shoulders. Swelling in hands is worse. Past history: Sulfasalazine ?rash developed after a while of being on it. MEthotrexate exacerbated migraines PFSH Medical History Tubulovillous adenoma Neoplasm of breast Osteochondropathy H/O neoplasm Degeneration, intervertebral disc, cervicothoracic Closed fracture of fifth metatarsal bone Anemia, chronic disease Actinic keratosis Migraine Breast cancer Surgical History H/O colonoscopy History of lumpectomy of right breast Family History Son Rheumatoid arthritis Father Diabetes Maternal Aunt Diabetes Paternal Grandmother Diabetes Social History Household Members: None Alcohol intake: current Alcohol intake frequency: a few times a week Patient Tobacco Use Status: Never used Tobacco Review of Systems Const All systems reviewed & are unremarkable except as noted in HPI and below Physical Exam Vital Signs: Last Vital Signs Pulse 100 05/11/24 10:11 BP 134/100 H 05/11/24 10:11 Pulse Ox 97 05/11/24 10:11 Oxygen Delivery Method Room Air 05/11/24 10:11 BMI result Body Mass Index 20.1 Const Other: General: Comfortable CVS: RRR Respiratory: clear to auscultation bilaterally. Good respiratory effort Skin: No lesions seen MSK: Chronic synovial thickening bilateral MCPs. Bilateral hand ulnar deviation with volar subluxation MCPs. Heberden's and Mack's nodes. Bilateral reduced hand cable assembler and swager strength. tender right shoulder on palpation. Good shoulder range of motion but with pain with internal rotation of bilateral shoulders. Synovitis of bilateral knees right worse than left and MTPs. Bilateral bunions noted. Assessment & Plan Assessment & Plan (1) Rheumatoid arthritis: Comment: Seropositive (RF, CCP) and Deforming. She has uncontrolled polyarthritis on current regimen. We discussed stepping up DMARD therapy. Discussed management with TNF inhibitors. Discussed infection wrists, side effects and benefits on Humira. Humira would replace hydroxychloroquine. Answered patient's questions to her satisfaction. Rheumatology history: Onset around 2010. On Plaquenil since onset to present. SSZ for years but developed a skin rash, which was attributed to sulfasalazine and patient discontinued it. Patient does not believe sulfasalazine caused a rash. MTX briefly, discontinued due to exacerbation of migraines. Then she was started on leflunomide, which she has been for many years. Code(s): M06.9 - Rheumatoid arthritis, unspecified Category: Medical Qualifiers: Rheumatoid arthritis location: multiple sites Rheumatoid factor presence: unspecified presence Qualified Code(s): M06.9 - Rheumatoid arthritis, unspecified Plan: After TB test result is back, I will send prescription for Humira. Once approved, she will need nurse teaching visit for Humira and labs 1 month after starting Humira (CBC, creatinine, AST, ALT, ESR, CRP). Patient will need to have lab requisition sent to her for her to do labs local to her home after starting Humira if future clinic visit is too far out. Continue hydroxychloroquine 200 mg 5 days a week and 400 mg twice a week. I am requesting eye exam for surveillance 2023. I have requested that she contact director of cardiopulmonary services to ensure that she had OCT exam as she only remembers having visual field test. Continue leflunomide 20 mg daily Prednisone course prescribed Labs for drug monitoring on high-risk medication reviewed 05/10/2024. Return to clinic in 3 months or sooner if needed (2) High risk medication use: Code(s): Z79.899 - Other intermediate (current) drug therapy Category: Medical Plan: See above (3) Encounter for monitoring of hydroxychloroquine therapy: Code(s): Z51.81 - Encounter for therapeutic drug level monitoring; Z79.899 - Other termite control technician (current) drug therapy Category: Medical Plan: See above Medications: New prednisone Take 4 tablets daily for 5 days, 3 tablets daily for 5 days, 2 tablets daily for 5 days, 1 tablet daily for 5 days then stop. Take prednisone with food. Avoid oral NSAIDs while on prednisone. 5 mg PO DIRECTED 50 tabs 0RF Refilled leflunomide 20 mg PO DAILY 90 tabs 0RF Coding Level of Care Code Est Pt Level 5 (55835) Complex EM visit Add On G2211 Diagnoses Rheumatoid arthritis involving multiple sites, unspecified whether rheumatoid factor present M06.9 Rheumatoid arthritis location: multiple sites Rheumatoid factor presence: unspecified presence High risk medication use Z79.899 Encounter for monitoring of hydroxychloroquine therapy Z51.81; Z79.899 Time Spent (min) 40
== END 2024-05-11 11:17 | disposition home or self-care (01) ==
PROVIDERS: PCP Nurse Practitioner Family; Visit Provider Internal Medicine Rheumatology
DX: M06.09 Rheumatoid arthritis without rheumatoid factor, multiple sites (principal); Z79.899 Other long term (current) drug therapy; Z51.81 Encounter for therapeutic drug level monitoring
CPT/HCPCS: 99215

== ENCOUNTER → 2024-05-11 09:59 | Outpatient (BNVA) | payer BC, SELFPAY | PROVIDERS: PCP Nurse Practitioner Family; Visit Provider Internal Medicine Rheumatology ==

== ENCOUNTER 2024-08-01 08:45 | Outpatient (REF) | payer BC, SELFPAY ==
[2024-08-01 18:02] LABS: MANUAL DIFF FLAG NO
[2024-08-01 18:17] LABS: Basophils Percent Auto 0.8 % (0-2); Eosinophils Absolute Auto 0.1 X10*3/uL (0.0-0.4); Eosinophils Percent Auto 2.3 % (0-4); Hematocrit 35.9 % (37.0-47.0); Hemoglobin 11.7 g/dl (12.0-16.0); Imm Gran Abs Auto 0.01 X10*3/uL (0.00-0.03); Imm Gran Pct Auto 0.2 % (0.0-0.4); Lymphocytes Absolute Auto 0.9 X10*3/uL (1.2-4.9); Mean Corpuscular HGB Conc 32.6 g/dl (31.0-35.0); Mean Corpuscular Volume 89.1 fL (80.0-98.0); Mean Platelet Volume 10.7 fL (9.4-12.3); Monocytes Absolute Auto 0.5 X10*3/uL (0.1-1.2); Monocytes Percent Auto 8.5 % (2-11); Neutrophils Absolute Auto 3.8 x10*3/uL (2.0-8.3); Neutrophils Percent Auto 72.2 % (45-73); Platelet Count 270 X10*3/uL (160-400); Red Blood Count 4.03 X10*6/uL (4.20-5.50); Red Cell Distribution Width 13.4 % (11.0-16.0); White Blood Count 5.3 X10*3/uL (4.8-10.8)
[2024-08-01 18:35] LABS: Alanine Aminotransferase 19 U/L (0-31); Aspartate Amino Transferase 32 U/L (5-31); C Reactive Protein 0.44 mg/dL (< or = 0.50); Estimated Glomerular Filt Rate > 60
[2024-08-01 18:58] LABS: Erythrocyte Sedimentation Rate 12 MM/HR (0-20)
== END 2024-08-01 08:46 | disposition home or self-care (01) ==
LOC: HO.HKASLDS 08:45
PROVIDERS: PCP Nurse Practitioner Family; Visit Provider Internal Medicine Rheumatology
DX: M06.9 Rheumatoid arthritis, unspecified (principal); Z79.60 Long term (current) use of unspecified immunomodulators and immunosuppressants; Z79.899 Other long term (current) drug therapy
CPT/HCPCS: 36415; 82565; 84450; 84460; 85025; 85652; 86140

== ENCOUNTER 2024-08-01 08:45 | Outpatient (AMB) | payer BC, SELFPAY ==
[2024-08-01 08:51] VITALS: BP 130/80; PULSE 81; O2SAT 95; BMI 20.3
--- NOTE | 2024-08-01 08:51 | MHC.OFFVIS ---
Vital Signs 08/01/24 08:51 Height 5 ft 7 in Weight 129 lb 6.581 oz BMI 20.3 BP 130/80 Blood Pressure Location Rt brachial Position Sitting Pulse 81 Pulse Source Pulse Oximeter Pulse Oximetry (%) 95 Oxygen Delivery Method Room Air Intake Visit Reasons: RA Intake Note: Patient present follow up RA. Accompanied by: Self / Same As Patient Allergies acetaminophen [From Vicodin] Allergy (Mild, Verified 08/01/24 08:51) Nausea hydrocodone [From Vicodin] Allergy (Mild, Verified 08/01/24 08:51) Nausea lisinopril Adverse Reaction (Mild, Verified 08/01/24 08:51) lips swelling Sulfa (Sulfonamide Antibiotics) Adverse Reaction (Mild, Verified 08/01/24 08:51) Rash HPI HPI RA: Details: MS lasting during the day Waking up with left hand numbness for 1 year. She tried brace last year and it did not work. New bilateral ankle stiffness. Feet are stiff. Prednisone course improved joint pain. NO recent infections. She has been gardening. [facility] Medical History Tubulovillous adenoma Neoplasm of breast Osteochondropathy H/O neoplasm Degeneration, intervertebral disc, cervicothoracic Closed fracture of fifth metatarsal bone Anemia, chronic disease Actinic keratosis Migraine Breast cancer Surgical History H/O colonoscopy History of lumpectomy of right breast Family History Son Rheumatoid arthritis Father Diabetes Maternal Aunt Diabetes Paternal Grandmother Diabetes Social History Household Members: None Alcohol intake: current Alcohol intake frequency: a few times a week Patient Tobacco Use Status: Never used Tobacco Review of Systems Const All systems reviewed & are unremarkable except as noted in HPI and below Physical Exam Vital Signs: Last Vital Signs Pulse 81 08/01/24 08:51 BP 130/80 08/01/24 08:51 Pulse Ox 95 08/01/24 08:51 Oxygen Delivery Method Room Air 08/01/24 08:51 BMI result Body Mass Index 20.3 Const Other: General: Comfortable CVS: RRR Respiratory: clear to auscultation bilaterally. Good respiratory effort Skin: No lesions seen MSK: Tender R 2nd and 3rd Bilateral MCP and left 3rd MCP tenderness. Right wrists mild synovitis, left wrists moderate synovitis. hand ulnar deviation with volar subluxation MCPs. Heberden's and Mack's nodes. Bilateral reduced hand lens polisher strength. Good shoulder range of motion but with pain with internal rotation of bilateral shoulders. Mild Synovitis of right knee, right ankle synovitis with tenderness, left MTP tenderness. Bilateral bunions noted. Assessment & Plan Assessment & Plan (1) Rheumatoid arthritis: Comment: She has uncontrolled polyarthritis on current regimen. Humira has been approved but she has a high co-pay. She has applied for financial assistance program. We discussed if financial assistance program is not approved, evidence supports that triple therapy is just as effective as TNF inhibitors. Triple therapy will consist of sulfasalazine, leflunomide and hydroxychloroquine. Labs from May 2024 reveal resolution of transaminitis. Rheumatology history: Seropositive (RF, CCP) and Deforming. Onset around 2010. On Plaquenil since onset to present. SSZ for years but developed a skin rash, which was attributed to sulfasalazine and patient discontinued it. Patient does not believe sulfasalazine caused a rash. MTX briefly, discontinued due to exacerbation of migraines. Then she was started on leflunomide, which she has been for many years. Code(s): M06.9 - Rheumatoid arthritis, unspecified Category: Medical Qualifiers: Rheumatoid arthritis location: multiple sites Rheumatoid factor presence: unspecified presence Qualified Code(s): M06.9 - Rheumatoid arthritis, unspecified Plan: Continue hydroxychloroquine 200 mg 5 days a week and 400 mg twice a week. Eye exam September 2023 reviewed. She needs to schedule visual field and OCT exam. Inform patient. Continue leflunomide 20 mg daily Labs for drug monitoring on high-risk medication on high-risk medication due Return to clinic in 3 months or sooner if needed (2) High risk medication use: Code(s): Z79.899 - Other ocean transportation intermediary (current) drug therapy Category: Medical Plan: See above (3) Encounter for monitoring of hydroxychloroquine therapy: Code(s): Z51.81 - Encounter for therapeutic drug level monitoring; Z79.899 - Other ocean transportation intermediary (current) drug therapy Category: Medical Plan: See above Orders: Orders Aspartate Amino Transferase Today M06.9 - Rheumatoid arthritis, unspecified, Z79.60 - [facility] (current) use of unspecified immunomodulators and immunosuppressants, Z79.899 - Other senior care (current) drug therapy Creatinine Today M06.9 - Rheumatoid arthritis, unspecified, Z79.60 - exterminator termite (current) use of unspecified immunomodulators and immunosuppressants, Z79.899 - Other ocean transportation intermediary (current) drug therapy Alanine Aminotransferase Today M06.9 - Rheumatoid arthritis, unspecified, Z79.60 - [facility] (current) use of unspecified immunomodulators and immunosuppressants, Z79.899 - Other senior care (current) drug therapy Complete Blood Count Auto Diff Today M06.9 - Rheumatoid arthritis, unspecified, Z79.60 - exterminator termite (current) use of unspecified immunomodulators and immunosuppressants, Z79.899 - Other senior care (current) drug therapy Erythrocyte Sedimentation Rate Today M06.9 - Rheumatoid arthritis, unspecified, Z79.899 - Other senior care (current) drug therapy C Reactive Protein Today M06.9 - Rheumatoid arthritis, unspecified, Z79.899 - Other senior care (current) drug therapy Medications: Refilled leflunomide 20 mg PO DAILY 90 tabs 0RF hydroxychloroquine 200 mg PO DIRECTED 108 tabs 0RF Coding Level of Care Code Est Pt Level 4 (58349) Complex EM visit Add On G2211 Diagnoses Rheumatoid arthritis involving multiple sites, unspecified whether rheumatoid factor present M06.9 Rheumatoid arthritis location: multiple sites Rheumatoid factor presence: unspecified presence High risk medication use Z Encounter for monitoring of hydroxychloroquine therapy Z51.81; Z
--- OUTSIDE RECORDS SUMMARY | 2024-08-01 09:06 | XMS_ITS | Data Portability ---
Author Organization [facility], [facility] Address [address] [place] [address] Care Team Providers Care Store Stock Associate Name Role Phone WILFRIDO MEDRANO Tool Technician THO MCDERMOTT Primary Care Provider KADE OCHOA Granular Operator Assessment Encounter Date Assessment Date Assessment LastModified by Organization Details LastModified Time 04/18/2020 04/18/2020 phone visit 12 min Not available 04/21/2020 10:17:53 08/12/2020 08/12/2020 phone visit 14 min Not available 08/13/2020 07:49:17 Plan of Treatment Reminders Order Date Submit Date Provider Last Modified By Organization Details Last Modified Time Details Appointments None recorded. Lab C-reactive protein, quantitativ e, serum or plasma 2021 [facility], [address] [place] [address], [id number], 10:26:37 CMP, serum or plasma 2021 [facility], [address] [place] [address], [id number], 10:26:35 erythrocyte sedimentati on rate by westergren method 2021 [facility], [address] [place] [address], [id number], 10:37:15 unlisted lab - CBC w/o auto diff 2021 022 [facility], [address] [place] [address], [id number], 16:56:47 unlisted lab - CBC w/o auto diff [address] [facility], [address] [place] [address], [id number], 3 15:55:14 CMP, serum or plasma [address] [facility], [address] [place] [address], [id number], 3 15:55:32 C-reactive protein, quantitativ e, serum or plasma [address] [facility], [address] [place] [address], [id number], 3 15:55:01 erythrocyte sedimentati on rate by westergren method [address] [facility], [address] [place] [address], [id number], 3 15:54:45 C-reactive protein, quantitativ e, serum or plasma 2021 022 [facility], [address] [place] [address], [id number], 2 10:10:10 CMP, serum or plasma 2021 022 [facility], [address] [place] [address], [id number], 2 10:00:15 erythrocyte sedimentati on rate by westergren method 2021 022 [facility], [address] [place] [address], [id number], 2 12:56:03 unlisted lab - CBC w/o auto diff 2021 [facility], [address] [place] [address], [id number], 11:01:34 unlisted lab - CBC w/o auto diff 2021 [facility], [address] [place] [address], [id number], 15:24:42 erythrocyte sedimentati on rate by westergren method 2021 [facility], [address] [place] [address], 63903, 16:42:49 CMP, serum or plasma 2021 [facility], [address] [place] [address], 70836, 11:07:36 C-reactive protein, quantitativ e, serum or plasma 2021 [facility], [address] [place] [address], [id number], 11:07:37 Referral None recorded. Procedures None recorded. Surgeries None recorded. Imaging XR, hand - F/u for RA. Compare. 2020 [facility] (Imaging), [address], [place], [address], 14:02:25 Medication Orders leflunomide 20 mg tablet 2021 022 [id number], [address] [place], [place], [id number], 3 09:11:01 hydroxychlo roquine 200 mg tablet 2021 022 [id number], [address] [place], [place], [id number], 3 09:10:57 leflunomide 20 mg tablet 2021 022 [place] [id number], [address] [place] [id number], 3 09:11:01 hydroxychlo roquine 200 mg tablet 2021 022 [place] [facility] #[id number], [address], [place], [place], [id number], 3 09:10:57 leflunomide 20 mg tablet 2020 021 [place] [facility] #[id number], [address], [place], [place], [id number], 3 09:11:01 hydroxychlo roquine 200 mg tablet 2020 021 [place] [facility] #[id number], [address], [place], [place], [id number], 3 09:10:57 Patient TargetsNo targets recorded. Patient InstructionsNo instructions recorded. Reason for Referral None Reported. Results Created Date Observation Date Name Description Value Unit Range Abnormal Flag Note LastModifiedBy Organization Detail LastModifiedTime 04/18/1904/18/2020 CBC WBC 5.43 K/? ? ?L 3.98-1 0.04 Not Available [address], [address], 04/18/2020 17:07:37 04/18/19 21 04/18/2020 CBC RBC 4.36 M/? ? ?L 3.93-5 .22 Not Available [address], 73943, 04/18/2020 17:07:37 04/18/19 21 04/18/2020 CBC HGB 12.2 g/dL 11.2-1 5.7 Not Available [address], 93514, 04/18/2020 17:07:37 04/18/19 21 04/18/2020 CBC HCT 38.5 % 34.1-4 4.9 Not Available [address], 72713, 04/18/2020 17:07:37 04/18/19 21 04/18/2020 CBC MCV 88.3 fL 79.4-9 4.8 Not Available [address], 95318, 04/18/2020 17:07:37 04/18/1904/18/2020 CBC MCH 28.0 pg 25.6-3 2.2 Not Available [address], 10042, 04/18/2020 17:07:37 04/18/19 21 04/18/2020 CBC MCHC 31.7 g/dL 32.2-3 5.5 low Not Available [address], 18136, 04/18/2020 17:07:37 04/18/1904/18/2020 CBC plt 230 K/? ? ?L 182-36 9 Not Available [address], 61861, 04/18/2020 17:07:37 04/18/1904/18/2020 CBC MPV 11.9 fL 9.4-12 .3 Not Available [address], 80573, 04/18/2020 17:07:37 04/18/1904/18/2020 CBC neut% 64.8 % 34.0-7 1.1 Not Available [address], 17738, 04/18/2020 17:07:37 04/18/19 21 04/18/2020 CBC neut# 3.52 1.56-6 .13 Not Available [address], 75726, 04/18/2020 17:07:37 04/18/19 21 04/18/2020 CBC lymph % 22.8 % 19.3-5 1.7 Not Available [address], 24747, 04/18/2020 17:07:37 04/18/19 21 04/18/2020 CBC lymph # 1.24 K/? ? ?L 1.18-3 .74 Not Available [address], 86161, 04/18/2020 17:07:37 04/18/19 21 04/18/2020 CBC mono% 9.2 % 4.7-12 .5 Not Available [address], 03386, 04/18/2020 17:07:37 04/18/19 21 04/18/2020 CBC mono# 0.50 0.24-0 .56 Not Available [address], 03772, 04/18/2020 17:07:37 04/18/19 21 04/18/2020 CBC eo% 2.4 % 0.7-5. 8 Not Available [address], 14947, 04/18/2020 17:07:37 04/18/19 21 04/18/2020 CBC eo# 0.13 0.04-0 .36 Not Available [address], 70773, 04/18/2020 17:07:37 04/18/19 21 04/18/2020 CBC baso% 0.6 % 0.1-1. 2 Not Available [address], 84484, 04/18/2020 17:07:37 04/18/19 21 04/18/2020 CBC baso# 0.03 0.00-0 .08 Not Available [address], 51241, 04/18/2020 17:07:37 04/18/19 21 04/18/2020 CBC RDW-CV 13.6 % 11.7-1 4.4 Not Available [address], 36123, 04/18/2020 17:07:37 04/18/19 21 04/18/2020 CBC Ig% 0.200 % 0.000- 1.500 Ig % >0.5 Indic ates possi ble Left Shift Not Available [address], 19589, 04/18/2020 17:07:37 04/18/19 21 04/18/2020 CBC Ig# 0.010 0.000- 0.093 Not Available [address], 46460, 04/18/2020 17:07:37 04/18/1904/18/2020 CBC NRBC% 0.0 % 0.0-0. 2 Not Available [address], 52838, 04/18/2020 17:07:37 04/18/19 21 04/18/2020 CBC NRBC# 0.000 0.000- 0.012 Not Available [address], 70564, 04/18/2020 17:07:37 04/18/1904/18/2020 eryth rocyt e sedim entat ion rate by bashir moody d sed rate 12.0 0.0-15 .0 Not Available [address], 38907, 04/18/2020 17:59:26 04/18/1904/2104/21/2020 hepat ic funct ion panel , serum total protein 6.9 g/dL 6.4-8. 2 Not Available [address], 68793, 04/21/2020 13:12:03 04/18/19 21 04/21/2020 hepat ic funct ion panel , serum albumin 3.7 g/dL 3.4-5. 0 Not Available [address], 48994, 04/21/2020 13:12:03 04/18/19 21 04/21/2020 hepat ic funct ion panel , serum globulin 3.2 g/dL Not Available [address], 98246, 04/21/2020 13:12:03 04/18/19 21 04/21/2020 hepat ic funct ion panel , serum A/G 1.2 ratio 0.8-2. 0 Not Available [address], 92010, 04/21/2020 13:12:03 04/18/19 21 04/21/2020 hepat ic funct ion panel , serum total bilirubin 0.20 mg/dL 0.00-1 .00 Not Available [address], 42069, 04/21/2020 13:12:03 04/18/19 21 04/21/2020 hepat ic funct ion panel , serum direct bilirubin 0.10 mg/dL 0.00-0 .30 Not Available [address], 47464, 04/21/2020 13:12:03 04/18/19 21 04/21/2020 hepat ic funct ion panel , serum AST 36 U/L 0-37 Not Available [address], 53208, 04/21/2020 13:12:03 04/18/19 21 04/21/2020 hepat ic funct ion panel , serum ALT 26 U/L 6-63 Not Available [address], 26971, 04/21/2020 13:12:03 04/18/19 21 04/21/2020 hepat ic funct ion panel , serum alk. phos. 45 U/L 50-136 low Not Available [address], 17355, 04/21/2020 13:12:03 04/18/19 21 04/21/2020 creat inine , serum or plasm a creatinine 0.5 mg/dL 0.8-1. 3 low Not Available [address], 03691, 04/21/2020 13:12:05 04/18/19 21 04/21/2020 creat inine , serum or plasm a GFR -non 137.9 mL/mi n Recom dana d GFR by the Natio nal Kidne y Found ation >60 mL/mi n/1.7 3m2 - Carol l <60 mL/mi n/1.7 3m2 - Chron ic Kidne y Disea se <15 mL/mi n/1.7 3m2 - Kidne y Failu re Not Available [address], 21565, 04/21/2020 13:12:05 04/18/19 21 04/21/2020 creat inine , serum or plasm a GFR - if 158.5 mL/mi n For Afric an Ameri can patie nts: Resul ts Multi plied by 1.21 Not Available [address], 43678, 04/21/2020 13:12:05 04/18/19 21 04/21/2020 C-miguelito ctive prote in, quant itati ve, serum or plasm a C-reactive protein -quant 2.0 mg/L 0.0-9. 0 Not Available [address], 52721, 04/21/2020 13:12:05 07/25/19 21 07/24/2020 CBC WBC 7.42 K/? ? ?L 3.98-1 0.04 Not Available [address], 47401, 07/24/2020 15:02:47 07/25/19 21 07/24/2020 CBC RBC 4.38 M/? ? ?L 3.93-5 .22 Not Available [address], 40265, 07/24/2020 15:02:47 07/25/19 21 07/24/2020 CBC HGB 12.3 g/dL 11.2-1 5.7 Not Available [address], 78384, 07/24/2020 15:02:47 07/25/19 21 07/24/2020 CBC HCT 39.3 % 34.1-4 4.9 Not Available [address], 54907, 07/24/2020 15:02:47 07/25/19 21 07/24/2020 CBC MCV 89.7 fL 79.4-9 4.8 Not Available [address], 04018, 07/24/2020 15:02:47 07/25/19 21 07/24/2020 CBC MCH 28.1 pg 25.6-3 2.2 Not Available [address], 57282, 07/24/2020 15:02:47 07/25/19 21 07/24/2020 CBC MCHC 31.3 g/dL 32.2-3 5.5 low Not Available [address], 16065, 07/24/2020 15:02:47 07/25/19 21 07/24/2020 CBC plt 241 K/? ? ?L 182-36 9 Not Available [address], 63901, 07/24/2020 15:02:47 07/25/19 21 07/24/2020 CBC MPV 11.2 fL 9.4-12 .3 Not Available [address], 59636, 07/24/2020 15:02:47 07/25/19 21 07/24/2020 CBC neut% 74.0 % 34.0-7 1.1 high Not Available [address], 33797, 07/24/2020 15:02:47 07/25/19 21 07/24/2020 CBC neut# 5.49 1.56-6 .13 Not Available [address], 32622, 07/24/2020 15:02:47 07/25/19 21 07/24/2020 CBC lymph % 16.0 % 19.3-5 1.7 low Not Available [address], 80752, 07/24/2020 15:02:47 07/25/19 21 07/24/2020 CBC lymph # 1.19 K/? ? ?L 1.18-3 .74 Not Available [address], 74784, 07/24/2020 15:02:47 07/25/19 21 07/24/2020 CBC mono% 8.2 % 4.7-12 .5 Not Available [address], 35100, 07/24/2020 15:02:47 07/25/19 21 07/24/2020 CBC mono# 0.61 0.24-0 .56 high Not Available [address], 90231, 07/24/2020 15:02:47 04/29/20 21 07/24/2020 CBC eo% 1.1 % 0.7-5. 8 Not Available [address], 16039, 07/24/2020 15:02:47 07/25/19 21 07/24/2020 CBC eo# 0.08 0.04-0 .36 Not Available [address], 87637, 07/24/2020 15:02:47 07/25/19 21 07/24/2020 CBC baso% 0.4 % 0.1-1. 2 Not Available [address], 65088, 07/24/2020 15:02:47 07/25/19 21 07/24/2020 CBC baso# 0.03 0.00-0 .08 Not Available [address], 26415, 07/24/2020 15:02:47 07/25/19 21 07/24/2020 CBC RDW-CV 13.6 % 11.7-1 4.4 Not Available [address], 42045, 07/24/2020 15:02:47 07/25/19 21 07/24/2020 CBC Ig% 0.300 % 0.000- 1.500 Ig % >0.5 Indic ates possi ble Left Shift Not Available [address], 35105, 07/24/2020 15:02:47 07/25/19 21 07/24/2020 CBC Ig# 0.020 0.000- 0.093 Not Available [address], 94190, 07/24/2020 15:02:47 07/25/19 21 07/24/2020 CBC NRBC% 0.0 % 0.0-0. 2 Not Available [address], 59745, 07/24/2020 15:02:47 07/25/19 21 07/24/2020 CBC NRBC# 0.000 0.000- 0.012 Not Available [address], 14968, 07/24/2020 15:02:47 07/25/19 21 07/24/2020 eryth rocyt e sedim entat ion rate by bashir bhatt sed rate 6.0 0.0-15 .0 Not Available [address], 29072, 07/24/2020 16:17:54 07/25/19 21 07/25/2020 hepat ic funct ion panel , serum total protein 6.8 g/dL 6.4-8. 2 Not Available [address], 23742, 07/25/2020 10:39:20 07/25/19 21 07/25/2020 hepat ic funct ion panel , serum albumin 3.7 g/dL 3.4-5. 0 Not Available [address], 29558, 07/25/2020 10:39:20 07/25/19 21 07/25/2020 hepat ic funct ion panel , serum globulin 3.1 g/dL Not Available [address], 87434, 07/25/2020 10:39:20 07/25/19 21 07/25/2020 hepat ic funct ion panel , serum A/G 1.2 ratio 0.8-2. 0 Not Available [address], 55504, 07/25/2020 10:39:20 07/25/19 21 07/25/2020 hepat ic funct ion panel , serum total bilirubin 0.40 mg/dL 0.00-1 .00 Not Available [address], 08001, 07/25/2020 10:39:20 07/25/19 21 07/25/2020 hepat ic funct ion panel , serum direct bilirubin 0.10 mg/dL 0.00-0 .30 Not Available [address], 23141, 07/25/2020 10:39:20 07/25/19 21 07/25/2020 hepat ic funct ion panel , serum AST 22 U/L 0-37 Not Available [address], 06365, 07/25/2020 10:39:20 07/25/19 21 07/25/2020 hepat ic funct ion panel , serum ALT 29 U/L 6-63 Not Available [address], 68455, 07/25/2020 10:39:20 07/25/19 21 07/25/2020 hepat ic funct ion panel , serum alk. phos. 37 U/L 50-136 low Not Available [address], 46474, 07/25/2020 10:39:20 07/25/19 21 07/25/2020 creat inine , serum or plasm a creatinine 0.5 mg/dL 0.8-1. 3 low Not Available [address], 97779, 07/25/2020 10:39:27 07/25/19 21 07/25/2020 creat inine , serum or plasm a GFR -non 137.9 mL/mi n Recom dana d GFR by the Natio nal Kidne y Found ation >60 mL/mi n/1.7 3m2 - Carol l <60 mL/mi n/1.7 3m2 - Chron ic Kidne y Disea se <15 mL/mi n/1.7 3m2 - Kidne y Failu re Not Available [address], 86104, 07/25/2020 10:39:27 07/25/19 21 07/25/2020 creat inine , serum or plasm a GFR - if 158.5 mL/mi n For Afric an Ameri can patie nts: Resul ts Multi plied by 1.21 Not Available [address], 97559, 07/25/2020 10:39:27 07/25/19 21 07/25/2020 C-miguelito ctive prote in, quant itati ve, serum or plasm a C-reactive protein -quant 3.0 mg/L 0.0-9. 0 Not Available [address], 66312, 07/25/2020 10:39:27 10/31/19 21 10/30/2020 CBC WBC 5.51 K/? ? ?L 3.98-1 0.04 Not Available [address], 70430, 10/30/2020 15:04:38 10/31/19 21 10/30/2020 CBC RBC 4.20 M/? ? ?L 3.93-5 .22 Not Available [address], 33968, 10/30/2020 15:04:38 10/31/19 21 10/30/2020 CBC HGB 12.1 g/dL 11.2-1 5.7 Not Available [address], 67978, 10/30/2020 15:04:38 10/31/19 21 10/30/2020 CBC HCT 38.2 % 34.1-4 4.9 Not Available [address], 00169, 10/30/2020 15:04:38 10/31/19 21 10/30/2020 CBC MCV 91.0 fL 79.4-9 4.8 Not Available [address], 50103, 10/30/2020 15:04:38 10/31/19 21 10/30/2020 CBC MCH 28.8 pg 25.6-3 2.2 Not Available [address], 23005, 10/30/2020 15:04:38 10/31/19 21 10/30/2020 CBC MCHC 31.7 g/dL 32.2-3 5.5 low Not Available [address], 05624, 10/30/2020 15:04:38 10/31/19 21 10/30/2020 CBC plt 249 K/? ? ?L 182-36 9 Not Available [address], 96336, 10/30/2020 15:04:38 10/31/19 21 10/30/2020 CBC MPV 11.3 fL 9.4-12 .3 Not Available [address], 68819, 10/30/2020 15:04:38 10/31/19 21 10/30/2020 CBC neut% 65.5 % 34.0-7 1.1 Not Available [address], 67007, 10/30/2020 15:04:38 10/31/19 21 10/30/2020 CBC neut# 3.61 1.56-6 .13 Not Available [address], 52587, 10/30/2020 15:04:38 10/31/19 21 10/30/2020 CBC lymph % 20.7 % 19.3-5 1.7 Not Available [address], 30649, 10/30/2020 15:04:38 10/31/19 21 10/30/2020 CBC lymph # 1.14 K/? ? ?L 1.18-3 .74 low Not Available [address], 67345, 10/30/2020 15:04:38 10/31/19 21 10/30/2020 CBC mono% 9.6 % 4.7-12 .5 Not Available [address], 67961, 10/30/2020 15:04:38 10/31/19 21 10/30/2020 CBC mono# 0.53 0.24-0 .56 Not Available [address], 15429, 10/30/2020 15:04:38 10/31/19 21 10/30/2020 CBC eo% 3.3 % 0.7-5. 8 Not Available [address], 78805, 10/30/2020 15:04:38 10/31/19 21 10/30/2020 CBC eo# 0.18 0.04-0 .36 Not Available [address], 74939, 10/30/2020 15:04:38 10/31/19 21 10/30/2020 CBC baso% 0.7 % 0.1-1. 2 Not Available [address], 96333, 10/30/2020 15:04:38 10/31/19 21 10/30/2020 CBC baso# 0.04 0.00-0 .08 Not Available [address], 31754, 10/30/2020 15:04:38 10/31/19 21 10/30/2020 CBC RDW-CV 13.2 % 11.7-1 4.4 Not Available [address], 72663, 10/30/2020 15:04:38 10/31/19 21 10/30/2020 CBC Ig% 0.200 % 0.000- 1.500 Ig % >0.5 Indic ates possi ble Left Shift Not Available [address], 82642, 10/30/2020 15:04:38 10/31/19 21 10/30/2020 CBC Ig# 0.010 0.000- 0.093 Not Available [address], 62716, 10/30/2020 15:04:38 10/31/19 21 10/30/2020 CBC NRBC% 0.0 % 0.0-0. 2 Not Available [address], 98915, 10/30/2020 15:04:38 10/31/19 21 10/30/2020 CBC NRBC# 0.000 0.000- 0.012 Not Available [address], 88197, 10/30/2020 15:04:38 10/31/19 21 10/30/2020 ESR sed rate 5.0 0.0-15 .0 Not Available [address], 86701, 10/30/2020 16:10:05 10/31/19 21 10/31/2020 HEPAT IC FUNCT ION PANEL total protein 6.7 g/dL 6.4-8. 2 Not Available [address], 12523, 10/31/2020 10:44:31 10/31/19 21 10/31/2020 HEPAT IC FUNCT ION PANEL albumin 3.7 g/dL 3.4-5. 0 Not Available [address], 22768, 10/31/2020 10:44:31 10/31/19 21 10/31/2020 HEPAT IC FUNCT ION PANEL globulin 3.0 g/dL Not Available [address], 50925, 10/31/2020 10:44:31 10/31/19 21 10/31/2020 HEPAT IC FUNCT ION PANEL A/G 1.2 ratio 0.8-2. 0 Not Available [address], 93808, 10/31/2020 10:44:31 10/31/19 21 10/31/2020 HEPAT IC FUNCT ION PANEL total bilirubin 0.40 mg/dL 0.00-1 .00 Not Available [address], 44960, 10/31/2020 10:44:31 10/31/19 21 10/31/2020 HEPAT IC FUNCT ION PANEL direct bilirubin 0.10 mg/dL 0.00-0 .30 Not Available [address], 48417, 10/31/2020 10:44:31 10/31/19 21 10/31/2020 HEPAT IC FUNCT ION PANEL AST 22 U/L 0-37 Not Available [address], 72133, 10/31/2020 10:44:31 10/31/19 21 10/31/2020 HEPAT IC FUNCT ION PANEL ALT 27 U/L 6-63 Not Available [address], 20003, 10/31/2020 10:44:31 10/31/19 21 10/31/2020 HEPAT IC FUNCT ION PANEL alk. phos. 39 U/L 50-136 low Not Available [address], 64613, 10/31/2020 10:44:31 10/31/19 21 10/31/2020 CREAT ININE creatinine 0.5 mg/dL 0.8-1. 3 low Not Available [address], 98622, 10/31/2020 10:44:32 10/31/19 21 10/31/2020 CREAT ININE GFR -non 137.4 mL/mi n Recom dana d GFR by the Natio nal Kidne y Found ation >60 mL/mi n/1.7 3m2 - Carol l <60 mL/mi n/1.7 3m2 - Chron ic Kidne y Disea se <15 mL/mi n/1.7 3m2 - Kidne y Failu re Not Available [address], 03793, 10/31/2020 10:44:32 10/31/19 21 10/31/2020 CREAT ININE GFR - if 158.0 mL/mi n For Afric an Ameri can patie nts: Resul ts Multi plied by 1.21 Not Available [address], 97631, 10/31/2020 10:44:32 10/31/19 21 10/31/2020 C-MIGUELITO CTIVE PROTE IN-QU ANTIT ATIVE C-reactive protein -quant <2.0 mg/L 0.0-9. 0 < Verif ied by twyla floyd Not Available [address], 54370, 10/31/2020 11:50:46 05/19/19 22 05/19/2021 CBC W/O AUTO DIFF WBC 3.97 K/? ? ?L 3.98-1 0.04 low Not Available [address], 10217, 05/19/2021 11:01:34 05/19/19 22 05/19/2021 CBC W/O AUTO DIFF RBC 4.35 M/? ? ?L 3.93-5 .22 Not Available [address], 23930, 05/19/2021 11:01:34 05/19/19 22 05/19/2021 CBC W/O AUTO DIFF HGB 12.4 g/dL 11.2-1 5.7 Not Available [address], 54184, 05/19/2021 11:01:34 05/19/19 22 05/19/2021 CBC W/O AUTO DIFF HCT 39.2 % 34.1-4 4.9 Not Available [address], 00448, 05/19/2021 11:01:34 05/19/19 22 05/19/2021 CBC W/O AUTO DIFF MCV 90.1 fL 79.4-9 4.8 Not Available [address], 39280, 05/19/2021 11:01:34 05/19/19 22 05/19/2021 CBC W/O AUTO DIFF MCH 28.5 pg 25.6-3 2.2 Not Available [address], 72832, 05/19/2021 11:01:34 05/19/19 22 05/19/2021 CBC W/O AUTO DIFF MCHC 31.6 g/dL 32.2-3 5.5 low Not Available [address], 89228, 05/19/2021 11:01:34 05/19/19 22 05/19/2021 CBC W/O AUTO DIFF plt 234 K/? ? ?L 182-36 9 Not Available [address], 03490, 05/19/2021 11:01:34 05/19/19 22 05/19/2021 CBC W/O AUTO DIFF RDW-CV 13.0 % 11.7-1 4.4 Not Available [address], 92046, 05/19/2021 11:01:34 05/19/19 22 05/19/2021 ESR sed rate 7.0 0.0-15 .0 Not Available [address], 47813, 05/19/2021 12:56:03 05/19/19 22 05/20/2021 COMP. METAB OLIC PANEL glucose 81 mg/dL 70-100 Not Available [address], 70151, 05/20/2021 10:00:15 05/19/19 22 05/20/2021 COMP. METAB OLIC PANEL BUN 8 mg/dL 7-18 Not Available [address], 10903, 05/20/2021 10:00:15 05/19/1905/20/2021 COMP. METAB OLIC PANEL creatinine 0.5 mg/dL 0.8-1. 3 low Not Available [address], 67952, 05/20/2021 10:00:15 05/19/19 22 05/20/2021 COMP. METAB OLIC PANEL B/C 16.0 ratio Not Available [address], 93798, 05/20/2021 10:00:15 05/19/1905/20/2021 COMP. METAB OLIC PANEL [...] be used in pregn nate. Not Available [address], 70415, 05/20/2021 10:00:15 05/19/19 22 05/20/2021 COMP. METAB OLIC PANEL sodium 140 mmol/ L 136-14 5 Not Available [address], 88793, 05/20/2021 10:00:15 05/19/19 22 05/20/2021 COMP. METAB OLIC PANEL potassium 4.9 mmol/ L 3.5-5. 1 Not Available [address], 54593, 05/20/2021 10:00:15 05/19/19 22 05/20/2021 COMP. METAB OLIC PANEL chloride 106 mmol/ L 96-107 Not Available [address], 74497, 05/20/2021 10:00:15 05/19/19 22 05/20/2021 COMP. METAB OLIC PANEL anion gap 5.2 5.0-15 .0 Not Available [address], 88278, 05/20/2021 10:00:15 05/19/19 22 05/20/2021 COMP. METAB OLIC PANEL CO2 29 mmol/ L 21-32 Not Available [address], 48803, 05/20/2021 10:00:15 05/19/19 22 05/20/2021 COMP. METAB OLIC PANEL calcium 9.8 mg/dL 8.5-10 .3 Not Available [address], [address], 05/20/2021 10:00:15 05/19/19 22 05/20/2021 COMP. METAB OLIC PANEL total protein 6.8 g/dL 6.4-8. 2 Not Available [address], [address], 05/20/2021 10:00:15 05/19/19 22 05/20/2021 COMP. METAB OLIC PANEL albumin 3.9 g/dL 3.4-5. 0 Not Available [address], [address], 05/20/2021 10:00:15 05/19/19 22 05/20/2021 COMP. METAB OLIC PANEL globulin 2.9 g/dL Not Available [address], [address], 05/20/2021 10:00:15 05/19/19 22 05/20/2021 COMP. METAB OLIC PANEL A/G 1.3 ratio 0.8-2. 0 Not Available [address], [address], 05/20/2021 10:00:15 05/19/19 22 05/20/2021 COMP. METAB OLIC PANEL total bilirubin 0.50 mg/dL 0.00-1 .00 Not Available [address], [address], 05/20/2021 10:00:15 05/19/19 22 05/20/2021 COMP. METAB OLIC PANEL AST 26 U/L 0-37 Not Available [address], [address], 05/20/2021 10:00:15 05/19/19 22 05/20/2021 COMP. METAB OLIC PANEL ALT 27 U/L 6-63 Not Available [address], [address], 05/20/2021 10:00:15 05/19/19 22 05/20/2021 COMP. METAB OLIC PANEL alk. phos. 40 U/L 50-136 low Not Available [address], [address], 05/20/2021 10:00:15 05/19/19 22 05/20/2021 C-MIGUELITO CTIVE PROTE IN-QU ANTIT ATIVE C-reactive protein -quant <2.0 mg/L 0.0-9. 0 < Verif ied by twyla floyd Not Available [address], [address], 05/20/2021 10:10:10 08/20/19 22 08/19/2021 CBC W/O AUTO DIFF WBC 7.38 K/? ? ?L 3.98-1 0.04 Not Available [address], [address], 08/19/2021 15:24:41 08/20/19 22 08/19/2021 CBC W/O AUTO DIFF RBC 3.75 M/? ? ?L 3.93-5 .22 low Not Available [address], [address], 08/19/2021 15:24:41 08/20/19 22 08/19/2021 CBC W/O AUTO DIFF HGB 10.7 g/dL 11.2-1 5.7 low Not Available [address], [address], 08/19/2021 15:24:41 08/20/19 22 08/19/2021 CBC W/O AUTO DIFF HCT 34.0 % 34.1-4 4.9 low Not Available [address], [address], 08/19/2021 15:24:41 08/20/19 22 08/19/2021 CBC W/O AUTO DIFF MCV 90.7 fL 79.4-9 4.8 Not Available [address], [address], 08/19/2021 15:24:41 08/20/19 22 08/19/2021 CBC W/O AUTO DIFF MCH 28.5 pg 25.6-3 2.2 Not Available [address], [address], 08/19/2021 15:24:41 08/20/19 22 08/19/2021 CBC W/O AUTO DIFF MCHC 31.5 g/dL 32.2-3 5.5 low Not Available [address], [address], 08/19/2021 15:24:41 08/20/19 22 08/19/2021 CBC W/O AUTO DIFF plt 331 K/? ? ?L 182-36 9 Not Available [address], [address], 08/19/2021 15:24:41 08/20/19 22 08/19/2021 CBC W/O AUTO DIFF RDW-CV 13.2 % 11.7-1 4.4 Not Available [address], [address], 08/19/2021 15:24:41 08/20/19 22 08/19/2021 ESR sed rate 26.0 0.0-15 .0 high Not Available [address], [address], 08/19/2021 16:42:49 08/20/19 22 08/20/2021 COMP. METAB OLIC PANEL glucose 80 mg/dL 70-100 Not Available [address], [address], 08/20/2021 11:07:36 08/20/19 22 08/20/2021 COMP. METAB OLIC PANEL BUN 10 mg/dL 7-18 Not Available [address], [address], 08/20/2021 11:07:36 08/20/19 22 08/20/2021 COMP. METAB OLIC PANEL creatinine 0.5 mg/dL 0.8-1. 3 low Not Available [address], [address], 08/20/2021 11:07:36 08/20/19 22 08/20/2021 COMP. METAB OLIC PANEL B/C 20.0 ratio Not Available [address], [address], 08/20/2021 11:07:36 08/20/19 22 08/20/2021 COMP. METAB [...] be used in pregn nate. Not Available [address], [address], 08/20/2021 11:07:36 08/20/19 22 08/20/2021 COMP. METAB OLIC PANEL sodium 138 mmol/ L 136-14 5 Not Available [address], [address], 08/20/2021 11:07:36 08/20/19 22 08/20/2021 COMP. METAB OLIC PANEL potassium 5.0 mmol/ L 3.5-5. 1 Not Available [address], [address], 08/20/2021 11:07:36 08/20/19 22 08/20/2021 COMP. METAB OLIC PANEL chloride 101 mmol/ L 96-107 Not Available [address], [address], 08/20/2021 11:07:36 08/20/19 22 08/20/2021 COMP. METAB OLIC PANEL anion gap 10.2 5.0-15 .0 Not Available [address], [address], 08/20/2021 11:07:36 08/20/19 22 08/20/2021 COMP. METAB OLIC PANEL CO2 27 mmol/ L 21-32 Not Available [address], [address], 08/20/2021 11:07:36 08/20/19 22 08/20/2021 COMP. METAB OLIC PANEL calcium 9.1 mg/dL 8.5-10 .3 Not Available [address], [address], 08/20/2021 11:07:36 08/20/19 22 08/20/2021 COMP. METAB OLIC PANEL total protein 6.7 g/dL 6.4-8. 2 Not Available [address], [address], 08/20/2021 11:07:36 08/20/19 22 08/20/2021 COMP. METAB OLIC PANEL albumin 3.6 g/dL 3.4-5. 0 Not Available [address], [address], 08/20/2021 11:07:36 08/20/19 22 08/20/2021 COMP. METAB OLIC PANEL globulin 3.1 g/dL Not Available [address], 614[address], 08/20/2021 11:07:36 08/20/19 22 08/20/2021 COMP. METAB OLIC PANEL A/G 1.2 ratio 0.8-2. 0 Not Available [address], [address], 08/20/2021 11:07:36 08/20/19 22 08/20/2021 COMP. METAB OLIC PANEL total bilirubin 0.40 mg/dL 0.00-1 .00 Not Available [address], [address], 08/20/2021 11:07:36 08/20/19 22 08/20/2021 COMP. METAB OLIC PANEL AST 21 U/L 0-37 Not Available [address], 27[address], 08/20/2021 11:07:36 08/20/19 22 08/20/2021 COMP. METAB OLIC PANEL ALT 20 U/L 6-63 Not Available [address], 110[address], 08/20/2021 11:07:36 08/20/19 22 08/20/2021 COMP. METAB OLIC PANEL alk. phos. 38 U/L 50-136 low Not Available [address], [address], 08/20/2021 11:07:36 08/20/19 22 08/20/2021 C-MIGUELITO CTIVE PROTE IN-QU ANTIT ATIVE C-reactive protein -quant 27.1 mg/L 0.0-9. 0 high Not Available [address], [address], 08/20/2021 11:07:37 08/27/19 22 08/26/2021 CBC WBC 6.24 K/? ? ?L 3.98-1 0.04 Not Available [address], [address], 08/26/2021 15:42:16 08/27/19 22 08/26/2021 CBC RBC 3.87 M/? ? ?L 3.93-5 .22 low Not Available [address], [address], 08/26/2021 15:42:16 08/27/19 22 08/26/2021 CBC HGB 11.0 g/dL 11.2-1 5.7 low Not Available [address], 35[address], 08/26/2021 15:42:16 08/27/19 22 08/26/2021 CBC HCT 35.0 % 34.1-4 4.9 Not Available [address], 13[address], 08/26/2021 15:42:16 08/27/19 22 08/26/2021 CBC MCV 90.4 fL 79.4-9 4.8 Not Available [address], [address], 08/26/2021 15:42:16 08/27/19 22 08/26/2021 CBC MCH 28.4 pg 25.6-3 2.2 Not Available [address], [address], 08/26/2021 15:42:16 08/27/19 22 08/26/2021 CBC MCHC 31.4 g/dL 32.2-3 5.5 low Not Available [address], [address], 08/26/2021 15:42:16 08/27/19 22 08/26/2021 CBC plt 318 K/? ? ?L 182-36 9 Not Available [address], [address], 08/26/2021 15:42:16 08/27/19 22 08/26/2021 CBC MPV 10.5 fL 9.4-12 .3 Not Available [address], [address], 08/26/2021 15:42:16 08/27/19 22 08/26/2021 CBC neut% 63.7 % 34.0-7 1.1 Not Available [address], 23[address], 08/26/2021 15:42:16 08/27/19 22 08/26/2021 CBC neut# 3.97 1.56-6 .13 Not Available [address], [address]76, 08/26/2021 15:42:16 08/27/19 22 08/26/2021 CBC lymph % 23.9 % 19.3-5 1.7 Not Available [address], 848[address], 08/26/2021 15:42:16 08/27/19 22 08/26/2021 CBC lymph # 1.49 K/? ? ?L 1.18-3 .74 Not Available [address], 07[address], 08/26/2021 15:42:16 08/27/19 22 08/26/2021 CBC mono% 9.3 % 4.7-12 .5 Not Available [address], 20[address], 08/26/2021 15:42:16 08/27/19 22 08/26/2021 CBC mono# 0.58 0.24-0 .56 high Not Available [address], [address], 08/26/2021 15:42:16 08/27/19 22 08/26/2021 CBC eo% 2.2 % 0.7-5. 8 Not Available [address], [address], 08/26/2021 15:42:16 08/27/19 22 08/26/2021 CBC eo# 0.14 0.04-0 .36 Not Available [address], [address], 08/26/2021 15:42:16 08/27/19 22 08/26/2021 CBC baso% 0.6 % 0.1-1. 2 Not Available [address], 6[address], 08/26/2021 15:42:16 08/27/19 22 08/26/2021 CBC baso# 0.04 0.00-0 .08 Not Available [address], [address], 08/26/2021 15:42:16 08/27/19 22 08/26/2021 CBC RDW-CV 13.2 % 11.7-1 4.4 Not Available [address], [address], 08/26/2021 15:42:16 08/27/19 22 08/26/2021 CBC Ig% 0.300 % 0.000- 1.500 Ig % >0.5 Indic ates possi ble Left Shift Not Available [address], [address], 08/26/2021 15:42:16 08/27/19 22 08/26/2021 CBC Ig# 0.020 0.000- 0.093 Not Available [address], [address], 08/26/2021 15:42:16 08/27/19 22 08/26/2021 CBC NRBC% 0.0 % 0.0-0. 2 Not Available [address], [address], 08/26/2021 15:42:16 08/27/19 22 08/26/2021 CBC NRBC# 0.000 0.000- 0.012 Not Available [address], [address], 08/26/2021 15:42:16 08/27/19 22 08/26/2021 VITAM IN B12 vitamin B12 194 pg/mL 230-10 50 low Not Available [address], [address], 08/26/2021 16:44:37 08/27/19 22 08/26/2021 IRON PANEL iron 46 ug/dL 35-150 Not Available [address], [address], 08/26/2021 17:57:17 08/27/19 22 08/26/2021 IRON PANEL T.I.B.C. 244 ug/dL 250-45 0 low Not Available [address], [address], 08/26/2021 17:57:17 08/27/19 22 08/26/2021 IRON PANEL % saturation 18.9 % Not Available Garcia [address], [address], 08/26/2021 17:57:17 08/27/19 22 08/27/2021 NAIN TIN ferritin 46 NG/mL 15-200 Not Available [address], [address], 08/27/2021 12:58:05 08/27/19 22 2021 FOLAT E folate 5 NG/mL 3-16 Not Available [address], [address], 2021 13:21:59 11/04/19 22 11/03/2021 CBC W/O AUTO DIFF WBC 6.26 K/? ? ?L 3.98-1 0.04 Not Available [address], [address], 11/03/2021 16:56:47 11/04/19 22 11/03/2021 CBC W/O AUTO DIFF RBC 4.08 M/? ? ?L 3.93-5 .22 Not Available [address], [address], 11/03/2021 16:56:47 11/04/19 22 11/03/2021 CBC W/O AUTO DIFF HGB 11.7 g/dL 11.2-1 5.7 Not Available [address], 74[address], 11/03/2021 16:56:47 11/04/19 22 11/03/2021 CBC W/O AUTO DIFF HCT 36.3 % 34.1-4 4.9 Not Available [address], [address], 11/03/2021 16:56:47 11/04/19 22 11/03/2021 CBC W/O AUTO DIFF MCV 89.0 fL 79.4-9 4.8 Not Available [address], [address], 11/03/2021 16:56:47 11/04/19 22 11/03/2021 CBC W/O AUTO DIFF MCH 28.7 pg 25.6-3 2.2 Not Available [address], 98661, 11/03/2021 16:56:47 11/04/19 22 11/03/2021 CBC W/O AUTO DIFF MCHC 32.2 g/dL 32.2-3 5.5 Not Available [address], [address], 11/03/2021 16:56:47 11/04/19 22 11/03/2021 CBC W/O AUTO DIFF plt 235 K/? ? ?L 182-36 9 Not Available [address], [address], 11/03/2021 16:56:47 11/04/19 22 11/03/2021 CBC W/O AUTO DIFF RDW-CV 13.4 % 11.7-1 4.4 Not Available [address], 23153, 11/03/2021 16:56:47 11/04/19 22 11/04/2021 COMP. METAB OLIC PANEL glucose 81 mg/dL 70-100 Not Available [address], [address], 11/04/2021 10:26:35 11/04/19 22 11/04/2021 COMP. METAB OLIC PANEL BUN 10 mg/dL 7-18 Not Available [address], 47175, 11/04/2021 10:26:35 11/04/19 22 11/04/2021 COMP. METAB OLIC PANEL creatinine 0.6 mg/dL 0.8-1. 3 low Not Available [address], 77[address], 11/04/2021 10:26:35 11/04/19 22 11/04/2021 COMP. METAB OLIC PANEL B/C 16.7 ratio Not Available [address], [address], 11/04/2021 10:26:35 11/04/19 22 11/04/2021 COMP. METAB [...] be used in pregn nate. Not Available [address], [address], 11/04/2021 10:26:35 11/04/19 22 11/04/2021 COMP. METAB OLIC PANEL sodium 139 mmol/ L 136-14 5 Not Available [address], [address], 11/04/2021 10:26:35 11/04/19 22 11/04/2021 COMP. METAB OLIC PANEL potassium 4.3 mmol/ L 3.5-5. 1 Not Available [address], 18578, 11/04/2021 10:26:35 11/04/19 22 11/04/2021 COMP. METAB OLIC PANEL chloride 102 mmol/ L 96-107 Not Available [address], [address], 11/04/2021 10:26:35 11/04/19 22 11/04/2021 COMP. METAB OLIC PANEL anion gap 10.1 5.0-15 .0 Not Available [address], 26[address], 11/04/2021 10:26:35 11/04/19 22 11/04/2021 COMP. METAB OLIC PANEL CO2 27 mmol/ L 21-32 Not Available [address], [address], 11/04/2021 10:26:35 11/04/19 22 11/04/2021 COMP. METAB OLIC PANEL calcium 8.7 mg/dL 8.5-10 .3 Not Available [address], 7[address], 11/04/2021 10:26:35 11/04/19 22 11/04/2021 COMP. METAB OLIC PANEL total protein 7.1 g/dL 6.4-8. 2 Not Available [address], 38679, 11/04/2021 10:26:35 11/04/19 22 11/04/2021 COMP. METAB OLIC PANEL albumin 3.9 g/dL 3.4-5. 0 Not Available [address], [address]32, 11/04/2021 10:26:35 11/04/19 22 11/04/2021 COMP. METAB OLIC PANEL globulin 3.2 g/dL Not Available [address], 794[address], 11/04/2021 10:26:35 11/04/19 22 11/04/2021 COMP. METAB OLIC PANEL A/G 1.2 ratio 0.8-2. 0 Not Available [address], 57332, 11/04/2021 10:26:35 11/04/19 22 11/04/2021 COMP. METAB OLIC PANEL total bilirubin 0.40 mg/dL 0.00-1 .00 Not Available [address], [address], 11/04/2021 10:26:35 11/04/19 22 11/04/2021 COMP. METAB OLIC PANEL AST 23 U/L 0-37 Not Available [address], 18434, 11/04/2021 10:26:35 11/04/19 22 11/04/2021 COMP. METAB OLIC PANEL ALT 20 U/L 6-63 Not Available [address], 286[address], 11/04/2021 10:26:35 11/04/19 22 11/04/2021 COMP. METAB OLIC PANEL alk. phos. 45 U/L 50-136 low Not Available [address], [address], 11/04/2021 10:26:35 11/04/19 22 11/04/2021 C-MIGUELITO CTIVE PROTE IN-QU ANTIT ATIVE C-reactive protein -quant 5.1 mg/L 0.0-9. 0 Not Available [address], [address]62, 11/04/2021 10:26:37 11/04/19 22 11/04/2021 ESR sed rate 3.0 0.0-15 .0 Not Available [address], 20859, 11/04/2021 10:37:15 02/03/20 22 02/02/2022 LIPID PANEL cholesterol 168 mg/dL <200 mg/dl Sylwia able 200-2 39 mg/dl Borde rline High >240 mg/dl High Not Available [address], 113[address], 02/02/2022 15:28:14 02/03/20 22 02/02/2022 LIPID PANEL triglyceride s 66 mg/dL <150 mg/dL Carol l 150-1 99 mg/dL Borde rline High 200-4 99 mg/dL High >500 mg/dL Very High Not Available [address], 29371, 02/02/2022 15:28:14 02/03/20 22 02/02/2022 LIPID PANEL direct HDL 59 mg/dL <40 mg/dl - Major Risk for CHD >60 mg/dl - Negat scott Risk for CHD Not Available [address], 82551, 02/02/2022 15:28:14 02/03/20 22 02/02/2022 DIREC T LDL direct LDL 98 mg/dL RISK CATEG ORY LDL GOAL _ CHD or CHD Risk Equiv alent s <100 mg/dl (10-y ear risk >20%) 2+ Risk Facto rs <130 mg/dl (10-y ear risk <= 20%) 0-1 Risk Facto r? <160 mg/dl ? Almos t all peopl e with 0-1 risk facto r have a 10 year risk <10%, thus 10 year risk asses ment in peopl e with 0-1 risk facto r is not neces nereida. Not Available [address], [address], 02/02/2022 15:28:15 02/03/20 22 02/02/2022 CBC W/O AUTO DIFF WBC 5.73 K/? ? ?L 3.98-1 0.04 Not Available [address], 96332, 02/02/2022 15:45:04 02/03/20 22 02/02/2022 CBC W/O AUTO DIFF RBC 3.94 M/? ? ?L 3.93-5 .22 Not Available [address], 56269, 02/02/2022 15:45:04 02/03/20 22 02/02/2022 CBC W/O AUTO DIFF HGB 11.4 g/dL 11.2-1 5.7 Not Available [address], 29812, 02/02/2022 15:45:04 02/03/20 22 02/02/2022 CBC W/O AUTO DIFF HCT 35.7 % 34.1-4 4.9 Not Available [address], 20191, 02/02/2022 15:45:04 02/03/20 22 02/02/2022 CBC W/O AUTO DIFF MCV 90.6 fL 79.4-9 4.8 Not Available [address], 16294, 02/02/2022 15:45:04 02/03/20 22 02/02/2022 CBC W/O AUTO DIFF MCH 28.9 pg 25.6-3 2.2 Not Available [address], 86679, 02/02/2022 15:45:04 02/03/20 22 02/02/2022 CBC W/O AUTO DIFF MCHC 31.9 g/dL 32.2-3 5.5 low Not Available [address], 28432, 02/02/2022 15:45:04 02/03/20 22 02/02/2022 CBC W/O AUTO DIFF plt 345 K/? ? ?L 182-36 9 Not Available [address], 43171, 02/02/2022 15:45:04 02/03/20 22 02/02/2022 CBC W/O AUTO DIFF RDW-CV 13.0 % 11.7-1 4.4 Not Available [address], 98675, 02/02/2022 15:45:04 02/03/20 22 02/02/2022 COMP. METAB OLIC PANEL glucose 103 mg/dL 70-100 high Not Available [address], 46945, 02/02/2022 15:45:47 02/03/20 22 02/02/2022 COMP. METAB OLIC PANEL BUN 8 mg/dL 7-18 Not Available [address], 30379, 02/02/2022 15:45:47 02/03/20 22 02/02/2022 COMP. METAB OLIC PANEL creatinine 0.5 mg/dL 0.8-1. 3 low Not Available [address], 41493, 02/02/2022 15:45:47 02/03/20 22 02/02/2022 COMP. METAB OLIC PANEL B/C 16.0 ratio Not Available [address], 07355, 02/02/2022 15:45:47 02/03/20 22 02/02/2022 COMP. METAB [...] as recom dana d by the Radha pena . eGFR is based on age, serum creat inine , and sex. CKD-E PI does not calcu late eGFR by race, does not apply to child ifeanyi (age <18 years ), and shoul d not be used in pregn nate. Not Available [address], [address], 02/02/2022 15:45:47 02/03/20 22 02/02/2022 COMP. METAB OLIC PANEL sodium 137 mmol/ L 136-14 5 Not Available [address], 17788, 02/02/2022 15:45:47 02/03/20 22 02/02/2022 COMP. METAB OLIC PANEL potassium 4.6 mmol/ L 3.5-5. 1 Not Available [address], 35958, 02/02/2022 15:45:47 02/03/20 22 02/02/2022 COMP. METAB OLIC PANEL chloride 100 mmol/ L 96-107 Not Available [address], 02371, 02/02/2022 15:45:47 02/03/20 22 02/02/2022 COMP. METAB OLIC PANEL anion gap 7.8 5.0-15 .0 Not Available [address], 84912, 02/02/2022 15:45:47 02/03/20 22 02/02/2022 COMP. METAB OLIC PANEL CO2 29 mmol/ L 21-32 Not Available [address], 88322, 02/02/2022 15:45:47 02/03/20 22 02/02/2022 COMP. METAB OLIC PANEL calcium 9.2 mg/dL 8.5-10 .3 Not Available [address], 01136, 02/02/2022 15:45:47 02/03/20 22 02/02/2022 COMP. METAB OLIC PANEL total protein 7.1 g/dL 6.4-8. 2 Not Available [address], 67184, 02/02/2022 15:45:47 02/03/20 22 02/02/2022 COMP. METAB OLIC PANEL albumin 3.7 g/dL 3.4-5. 0 Not Available [address], 59879, 02/02/2022 15:45:47 02/03/20 22 02/02/2022 COMP. METAB OLIC PANEL globulin 3.4 g/dL Not Available [address], 08760, 02/02/2022 15:45:47 02/03/20 22 02/02/2022 COMP. METAB OLIC PANEL A/G 1.1 ratio 0.8-2. 0 Not Available [address], 40171, 02/02/2022 15:45:47 02/03/20 22 02/02/2022 COMP. METAB OLIC PANEL total bilirubin 0.30 mg/dL 0.00-1 .00 Not Available [address], 77525, 02/02/2022 15:45:47 02/03/20 22 02/02/2022 COMP. METAB OLIC PANEL AST 19 U/L 0-37 Not Available [address], 22901, 02/02/2022 15:45:47 02/03/20 22 02/02/2022 COMP. METAB OLIC PANEL ALT 20 U/L 6-63 Not Available [address], 77890, 02/02/2022 15:45:47 02/03/20 22 02/02/2022 COMP. METAB OLIC PANEL alk. phos. 42 U/L 50-136 low Not Available [address], 92965, 02/02/2022 15:45:47 02/03/20 22 02/02/2022 C-MIGUELITO CTIVE PROTE IN-QU ANTIT ATIVE C-reactive protein -quant <2.0 mg/L 0.0-9. 0 < Not Available [address], 20352, 02/02/2022 15:45:49 02/03/20 22 02/02/2022 ESR sed rate 30.0 0.0-15 .0 high Not Available [address], 25212, 02/02/2022 16:03:48 08/20/19 21 08/18/2020 XR, hand [...] DIP joint. Electr onical ly signed Baudilio arnold: Massimo Solitario ms [facility] (Imaging) [address] [place], [address], 09/08/2020 14:46:35 Result Notes None recorded. Problems Name Problem SNOMED Code Status Onset Date Resolution Date Notes Provider Name and Address Organization Details Recorded Time Vitamin D deficiency 29819794 Active Wilfrido Medrano MD [address] [place] [address], [address] , [facility] 4 17:14:13 Long-term drug therapy Active 2016 Wilfrido Medrano MD [address] [place] [address], [address] , [facility] 7 14:43:09 Bunion 151396416 Active 2007 Not Available [facility] 3 03:12:50 Adverse reaction to drug 75326907 Active 2007 Not Available [facility] 3 03:12:50 Rheumatoid arthritis 31218861 Active 2004 Wilfrido Medrano MD [address] [place] [address], [address] , [facility] 6 18:39:44 Pain of joint of hand 761812900 Completed 200502/14/2013 Not Available [facility] 3 02:02:43 Anemia 982771800 Active 2005 Not Available [facility] 3 03:12:50 Low back pain 139504087 Active Not Available [facility] 3 03:12:50 Primary malignant neoplasm of female breast 40678849 Active 2007 Wilfrido Medrano MD [address] [place] [address], [address] , [facility] 6 18:20:51 Pain in limb 94003104 Completed 02/14/2013 Not Available [facility] 3 02:00:56 Malaise and fatigue 129694025 Completed 200502/14/2013 Not Available [facility] 3 02:00:19 Problem Notes None recorded. Procedures Surgical History Date Name Laterality Status Provider Name and Address Organization Details Recorded Time 1 Generic Procedure Template completed Wilfrido Medrano MD [address] [place] [address], [phone], [facility] 05/08/2020 17:49:22 0 31881: Therapeutic Exercise completed Deidre Collins DPT [address] [place] [address], [phone], [facility] 11/21/2019 10:51:50 0 76420: Therapeutic Exercise completed Deidre Collins DPT [address] [place] [address], [address], [facility] 10/31/2019 11:10:25 0 74841: Therapeutic Exercise completed Deidre Collins DPT [address] [place] [address], [address], [facility] 10/24/2019 15:10:35 0 06274: Therapeutic Exercise completed Deidre Collins DPT [address] [place] [address], [address], [facility] 10/17/2019 12:22:24 0 Physical Activity Counselling completed Deidre Collins DPT [address] [place] [address], [address], [facility] 10/10/2019 12:01:52 0 30526: PT Eval Low Complexity completed Deidre Collins DPT [address] [place] [address], [phone], [facility] 10/10/2019 12:06:22 Imaging Results Imaging Date Name Status LastModified by Organiz ation Details LastModified Time 08/18/2020 XR, hand completed [facility] (Imaging) [address], [place], [address], 09/08/2020 14:46:35 Procedure Notes None recorded. Medical [...] Updated DateTime 04/18/2020 170.18 cm 19.6 kg/m2 67704.05 g Aleksandra Todd [facility] 04/18/2020 10:33:10 Date Recorded Body height Body mass index (BMI) Body weight Heart rate Systolic blood pressure Diastolic blood pressure Provider Name and Address Organization Details Last Updated DateTime 1 170.18 cm 19.6 kg/m2 05386.0 5 g 84 /min 148 mm[Hg] 80 mm[Hg] Aleksandra Todd [facility] 1 11:06:26 Date Recorded Body height Body mass index (BMI) Body weight Systolic blood pressure Diastolic blood pressure Systolic blood pressure Diastolic blood pressure Provider Name and Address Organization Details Last Updated DateTime 1 170.18 cm 19.6 kg/m2 89100.0 5 g 134 mm[Hg] 94 mm[Hg] 164 mm[Hg] 87 mm[Hg] Aleksandra Todd [facility] 1 08:16:38 Date Recorded Body height Body mass index (BMI) Body weight Provider Name and Address Organization Details Last Updated DateTime 05/04/2021 170.18 cm 19.6 kg/m2 24613.05 g Keri Mckee LPN [facility] 05/04/2021 11:38:47 Date Recorded Body height Body mass index (BMI) Body weight Heart rate Systolic blood pressure Diastolic blood pressure Provider Name and Address Organization Details Last Updated DateTime 2 170.18 cm 19.5 kg/m2 04982.8 9 g 77 /min 140 mm[Hg] 82 mm[Hg] Keri Mckee LPN [facility] 2 13:18:21 Social History Question Answer Notes LastModified by Organizat ion Details LastModified Time Tobacco Smoking Status Former Smoker Not Available [facility] 02/11/2011 04:53:49 What Is Your Level Of Alcohol Consumption? Occasional 1-3 Wine/bee r Per Week [email or web address] Information not available 03/06/2019 Which Illicit Or Recreational Drugs Have You Used? No [email or web address] Information not available 02/11/2011 What Is Your Occupation? [employer] [email or web address] Information not [...] split virus, quadrivalent, preservative 7 [facility] 10:56:21 Influenza, split virus, quadrivalent, preservative 1 [facility] 05/04[facility]2021 11:40:41 COVID-19, mRNA, LNP-S, PF, 100 mcg/0.5mL dose or 50 mcg/0.25mL dose 1 completed KEVYN Munoz, [facility] 05/04/2021 11:40:56 COVID-19, mRNA, LNP-S, PF, 100 mcg/0.5mL dose or 50 mcg/0.25mL dose 1 completed KEVYN Munoz, [facility] 05/04/2021 11:41:05 COVID-19, mRNA, LNP-S, PF, 100 mcg/0.5mL dose or 50 mcg/0.25mL dose 1 completed KEVYN Munoz, [facility] 05/04/2021 11:41:21 Past Encounters Encounter ID Performer Location Encounter Start Date Encounter Closed Date Diagnosis/Indication Diagnosis SNOMED-CT Code Diagnosis ICD10 Code Diagnosis Note [id number] Wilfrido Medrano MD Rheumat[facility] [address] [address] 02/01/2005 13:01:46 02/01/2005 15:05:43 [id number] [facility] - [address] [address] 02/01/2005 13:27:54 02/01/2005 13:28:16 [id number] Wilfrido Medrano MD Rheumatol [address] [address] 1 05/31/2005 13:02:57 06/01/2005 07:19:46 [id number] [facility] - [address] [address] 06/28/2005 15:54:14 06/28/2005 15:54:29 [id number] Wilfrido Medrano MD Rheumatbrock ron[address] [address] 1 06/28/2005 15:45:20 06/29/2005 13:20:44 [id number] Wilfrido Medrano MD Rheumatol [address] [address] 1 08/24/2005 08:15:29 08/24/2005 15:17:08 [id number] [facility] - [facility] [place] [address] 08/24/2005 08:45:16 08/24/2005 09:01:00 [id number] [facility] - [facility] [place] [address] 10/12/2005 08:54:54 10/12/2005 08:55:05 [id number] MD Zachariah Chopra, [address] [place] [address] 10/12/2005 08:24:25 10/13/2005 14:21:02 [id number] MD Zachariah Chopra[address] [place] [address] 12/14/2005 08:14:43 12/15/2005 06:34:08 [id number] [facility] - [facility] [place] [place] [address] 1 12/14/2005 09:00:17 12/14/2005 09:00:33 [id number] [facility] , [address] [place] [address] 12/17/2005 15:17:46 04/17/2008 02:02:29 [id number] MD Zachariah Chopra[address] [place] [address] 02/22/2006 08:01:00 02/22/2006 11:31:18 [id number] [facility] - [facility] [place] [place] [address] 1 02/22/2006 08:03:59 02/22/2006 08:04:15 [id number] [facility] - [address] [place] [address] 04/25/2006 13:38:09 04/25/2006 13:38:18 [id number] [facility] - [facility] [place] [address] 05/17/2006 08:33:41 05/17/2006 08:33:49 [id number] MD Zachariah Chopra[address] [place] [address] 05/20/2006 07:56:17 05/20/2006 14:42:26 [id number] [facility] - [facility] [place] [place] [address] 1 06/20/2006 12:51:18 06/20/2006 12:51:26 [id number] [facility] [place] [address] 1 07/29/2006 14:16:14 07/29/2006 14:21:47 [id number] [facility] - [address] [place] [address] 07/29/2006 14:56:48 07/29/2006 14:56:56 [id number] Wilfrido Medrano MD [facility] [place] [address] 1 09/09/2006 08:14:09 09/12/2006 06:46:21 [id number] [facility] - [address] [place] [address] 09/09/2006 08:43:35 09/09/2006 09:05:18 [id number] Wilfrido Medrano MD Rheumat[facility] [place] [address] 1 12/08/2006 07:55:06 12/08/2006 10:22:06 [id number] [facility] - [address] [place] [address] 12/08/2006 08:15:51 12/08/2006 08:16:20 [id number] [facility] [facility] - [address] [place] [address] 04/06/2007 12:59:12 04/06/2007 12:59:20 [id number] Wilfrido Medrano MD Rheumatol asaf, [address] [place] [address] 1 04/11/2007 08:24:57 04/17/2008 02:02:29 [id number] [facility] - [address] [place] [address] 1 08/01/2007 09:47:46 08/01/2007 09:48:04 [id number] Wilfrido Medrano MD Rheumatol [facility], [address] [place] [address] 1 08/07/2007 13:20:28 04/17/2008 02:02:29 [id number] [facility] - [address] [place] [address] 1 01/02/2008 11:42:14 01/02/2008 11:42:30 [id number] Wilfrido Medrano MD Rheumatol asaf, [address] [place] [address] 1 02/12/2008 15:14:32 04/17/2008 02:02:29 [id number] Wilfrido Medrano MD Rheumatol [facility], [address] [place] [address] 04/11/2008 08:50:05 04/17/2008 02:02:29 [id number] Wilfrido Medrano MD Rheumatol asaf, [address] [place] [address] 1 06/05/2008 07:51:10 06/07/2008 09:04:02 [id number] Wilfrido Medrano MD Rheumatol [facility], [address] [place] [address] 1 09/10/2008 14:55:30 09/11/2008 10:18:41 [id number] Wilfrido Medrano MD Rheumatol [facility], [address] [place] [address] 1 12/10/2008 08:14:46 12/11/2008 09:42:20 [id number] [facility] - [address] [place] [address] 1 06/05/2008 08:23:28 06/05/2008 08:23:47 [id number] [facility] - [address] [place] [address] 1 09/09/2008 15:19:01 09/09/2008 15:19:09 [id number] [facility] - [address] [place] [address] 1 09/09/2008 00:00:00 01/23/2009 02:00:52 [id number] [facility] - [address] [place] [address] 1 12/06/2008 11:44:39 12/06/2008 11:44:57 [id number] [facility] - [address] [place] [address] 1 12/06/2008 00:00:00 01/23/2009 02:00:52 [id number] Wilfrido Medrano MD Rheumatol asaf, [address] [place] [address] 1 06/23/2009 15:55:05 06/24/2009 08:57:12 [id number] Wilfrido Medrano MD Rheumatol asaf, [address] [place], [place] [address] 1 04/21/2010 08:15:48 04/21/2010 12:54:59 [id number] Wilfrido Medrano MD Rheumatol asaf, [address] [place] [address] 1 09/21/2010 09:32:06 09/22/2010 08:55:59 [id number] [facility] , [address] [place] [address] 09/21/2010 10:18:45 09/21/2010 10:44:23 [id number] Wilfrido Medrano MD Rheumatol asaf, [address] [place] [address] 08/05/2011 08:14:19 08/09/2011 08:42:06 [id number] Wilfrido Medrano MD Rheumatol asaf, [address] [place] [address] 1 08/07/2012 08:14:16 08/07/2012 08:41:34 [id number] Wilfrido Medrano MD Rheumatol [facility], [address] [place], [place] [address] 08/24/2013 08:29:43 08/27/2013 09:55:57 Rheumatoid arthritis [id number] Long hx RA, Basically Stable. Minor progressio n on x ray over 2-3 years. Discussed. She is not anxious to change medication s and whatever damage there is occurs at a very slow pace. No change treatment for now. Vitamin D deficiency 12121588 Says PCP check Vit D last year and it was very low . Was given weekly supplemnet for 2 mo, but has not been taking any supplement lately. Advised 2000 iu/d D3. Long-term drug therapy [id number] No signs or sx's leflunamid e toxicity. Lax about lab follow up, but getting better. Discussed. [id number] Wilfrido Medrano MD Rheumatol [address] [place] [address] 08/12/2014 10:56:10 08/13/2014 09:50:11 Rheumatoid arthritis 25010180 Long hx RA, Basically Stable. Minor progressio n on x ray over 2-3 years. Discussed. She is not anxious to change medication s and whatever damage there is occurs at a very slow pace. No change treatment for now. Has not been reliably compliant with lab testing on the LEF. Will prescribe 3 mo supply at a time. Long-term drug therapy [id number] No signs or sx's leflunamid e toxicity. Lax about lab follow up, but getting better. Discussed. [id number] Wilfrido Medrano MD Rheumatol [facility], [address] [place] [address] 05/20/2015 14:34:56 05/21/2015 07:27:18 Rheumatoid arthritis 69462994 M06.9 Long history of rheumatoid arthritis, some [...] are no guarantees . Long-term drug therapy [id number] Z79.899 No signs or sx's leflunamid e toxicity. Lax about lab follow up, but getting better. Discussed. Primary ma lignant neoplasm of female breast 25762287 C50.919 History of breast cancer. No evidence of disease. We need to discuss risk/benef it with the Humira in view of this history. [id number] Wilfrido Medrano MD Rheumatol [facility], [address] [place] [address] 07/01/2015 14:17:06 07/01/2015 14:56:39 Rheumatoid arthritis 76150548 M06.9 Long history of rheumatoid arthritis, some [...] Probably should update x rays early 2016. [id number] Wilfrido Medrano MD Rheumatol [facility], [address] [place] [address] 11/04/2015 08:15:36 11/04/2015 08:46:41 Rheumatoid arthritis 38933384 M06.9 Long history of rheumatoid arthritis, some [...] will see her then. Long-term drug therapy 901384035 Z79.899 No signs or sx's leflunomid e toxicity. Lax about lab follow up, but getting better. Discussed. [id number] Wilfrido Medrano MD Rheumatol asaf, [address] [place] [address] 05/10/2016 13:03:01 05/11/2016 07:30:19 Rheumatoid arthritis 40216429 M06.9 Long history of rheumatoid arthritis, some [...] with me 6 mo. Long-term drug therapy 974882418 Z79.899 No signs or sx's leflunomid e toxicity. Lax about lab follow up, but getting better. Labs 02/26/16 all OK. Discussed. [id number] Wilfrido Medrano MD Rheumatol [facility], [address] [place] [address] 11/08/2016 12:49:36 11/08/2016 13:14:44 Rheumatoid arthritis 61046500 M06.9 Long history of rheumatoid arthritis, some erosive disease. There has been very slow progressio n of erosive disease, though exrays stable 2015 - 2016. . Her arthritis had been under very good control with leflunomid e plus Plaquenil. No worse on lower dose Plaquenil. Advised cont Plaquenil. Try reducing LEF: take 20 mg 5 days per week. If still dong well 3 mo from now, reduce to 4 pills per week Update labs today and in Jan. Return 6 mo. Long-term drug therapy 984453311 Z79.899 No signs or sx's leflunomid e toxicity. Up to date on eye exams. Lax about lab follow up, but getting better. Discussed. [id number] Wilfrido Medrano MD Rheumatol [facility], [address] [place] [address] 06/24/2017 10:42:47 06/24/2017 13:00:57 Rheumatoid arthritis 11320820 M06.9 Long history of rheumatoid arthritis, some [...] . Return 6 mo. Long-term drug therapy 585737426 Z79.899 No signs or sx's leflunomid e toxicity. Up to date on eye exams. Lax about lab follow up, but getting better. Discussed. Bunion [id number] M21.61 9 Prominent bunion. Difficulty wearing shoes.Sugg est she could be seen at [facility] for suggestion s. [id number] Wilfrido Medrano MD Rheumatol [facility], [facility] [address] [place] [address] 03/06/2019 15:30:21 03/08/2019 06:15:41 Rheumatoid arthritis 23683286 M06.9 Long history of rheumatoid arthritis, some [...] . Return 6 mo. Long-term drug therapy 897934960 Z79.899 No signs or sx's leflunomid e toxicity. Up to date on eye exams. Lax about lab follow up, but getting better. Discussed. Vitamin D deficiency [id number] 57015 K67.9 Says PCP check Vit D last year and it was very low . Was given weekly supplemnet for 2 mo, but has not been taking any supplement lately. Will order repeat vit D at next lab [id number] Wilfrido Medrano MD Rheumatol [facility], [address] [address] 08/10/2019 13:14:25 08/13/2019 07:00:11 Rheumatoid arthritis 98578010 M06.9 Long history of rheumatoid arthritis, some [...] call and report sxs in 4 wks. [id number] Wilfrido Medrano MD Rheumatol asaf, [address] [address] 09/07/2019 08:48:39 09/10/2019 07:22:53 Rheumatoid arthritis 88995096 M06.9 Long history of rheumatoid arthritis, some [...] (intoleran t of MTX in remote past). [id number] Deidre Collins DPT Physical Therapy, [address] [place], [place] [address] 10/10/2019 10:33:00 10/10/2019 14:07:17 Neck pain 09506046 M54.2 [id number] Deidre Collins DPT Physical Therapy, [address] [place], [place] [address] 10/17/2019 10:34:47 10/17/2019 12:40:37 Neck pain 07550024 M54.2 [id number] Deidre Collins DPT Physical Therapy, [address] [place] [address] 10/24/2019 10:28:53 10/24/2019 21:39:41 Neck pain 04896265 M54.2 [id number] Deidre Collins DPT Physical Therapy, [address] [place] [address] 10/31/2019 10:31:16 10/31/2019 13:17:00 Neck pain 01457703 M54.2 [id number] Deidre Collins DPT Physical Therapy, [address] [place] [address] 11/21/2019 10:31:31 11/21/2019 11:27:59 Neck pain 60545651 M54.2 [id number] Wilfrido Medrano MD Rheumatol as[facility], [address] [place] [address] 12/04/2019 10:31:02 12/06/2019 06:51:47 Rheumatoid arthritis 72337436 M06.9 Long history of rheumatoid arthritis, some [...] RA (M )MTX 2008: intolerant Leflunomid e 2008 - present ineffectiv ePlaquenil 2008 - present ineffectiv e. [id number] Wilfrido Medrano MD Rheumatol [address] [place] [address] 01/15/2020 10:25:59 01/16/2020 19:31:29 Rheumatoid arthritis 78637265 M06.9 Long history of rheumatoid arthritis, some [...] RA (M )MTX 2008: intolerant Leflunomid e 2008 - present ineffectiv ePlaquenil 2007 - present ineffectiv e. [id number] Wilfrido Medrano MD Rheumatol [address] [place] [address] 04/18/2020 10:27:34 04/22/2020 05:58:08 Rheumatoid arthritis 29289556 M06.9 Long history of rheumatoid arthritis, some [...] e Plaquenil 2008 - present ineffectiv e. [id number] Wilfrido Medrano MD Rheumatol as[facility], [address] [place] [address] 05/08/2020 10:43:52 05/09/2020 06:54:38 Rheumatoid arthritis 43915290 M06.9 Long history of rheumatoid arthritis, some [...] e Plaquenil 2008 - present ineffectiv e. Effusion o f joint of right elbow [id number] 53409 M25.421 Symptomati c inflammato ry effusion r elbow. Local injection today. [id number] Wilfrido Medrano MD Rheumatol [facility], [address] [place] [address] 08/12/2020 08:07:22 08/13/2020 19:29:04 Rheumatoid arthritis 13431145 M06.9 Long history of rheumatoid arthritis, some [...] (M ) MTX 2008: intolerant Leflunomid e 2007 - present ineffectiv e Plaquenil 2007 - present ineffectiv e. Long-term drug therapy 265362338 Z79.899 No signs or sx's leflunomid e toxicity. Will confirm that she is up to date on eye exams. Lax about lab follow up, but getting better. Appt given for labs 3 mo. Discussed. [id number] Jennifer Edwards MD Rheumatol ogy, [facility] [address] [place] [address] 05/04/2021 11:36:48 05/04/2021 12:41:23 Rheumatoid arthritis 26388823 M06.9 Doing well for now. Continue plaquenil and leflunomid e.Renew meds.Check labs for disease activity and medication toxicity (standing orders).Delio dumas got the COVID booster and flu shot. She also got the pneumonia vaccine. RTC in 6 months or sooner if needed. Long-term drug therapy [id number] Z79.899 On leflunomid e and plaquenil. Monitor labs.Patie nt ot see ophthalmol ogy. Extensivel y conselled on that. Patient ot hold leflunomid e if fever or signs of infection. [id number] Jennifer Edwards MD Rheumatol ogy, [facility] [address] [facility] [place] [address] 11/03/2021 13:05:13 11/10/2021 08:24:14 Rheumatoid arthritis 73536969 M06.9 Doing well for now. Continue plaquenil [...] or sooner if needed. Long-term drug therapy 389342541 Z79.899 On leflunomid e and plaquenil. Monitor labs.Heather nue to follow with ophthalolo gy. Patient to hold leflunomid e if fever or signs of infection. Anemia [id number] D64.9 Low B12.Patien t to call her PCP for replacemen t.Early end labs to pcp.Iron borderline , also. Essential hypertension 81627868 I10 Patient is on leflunomid e and [...] Solorio Member ID Guarantor Name 04/18/2020 1 [facility]: MEDICARE P[place] BLUE (MEDICARE REPLACEMENT PPO) [id number] Samantha Granados [id number] Samantha Roberta 05/08/2020 1 [facility]: MEDICARE P[place] BLUE (MEDICARE REPLACEMENT PPO) [id number] Samantha Granados [id number] Samanthamitra Scottell 08/12/2020 1 [facility]: MEDIC[place] P[place] BLUE (MEDICARE REPLACEMENT PPO) [id number] Samantha Granados [id number] Samanthamitra Scottell 05/04/2021 1 [facility]: [place] BLUE (MEDICARE REPLACEMENT PPO) [id number] Samantha Granados [id number] Samantha Roberta 11/03/2021 1 [facility]: MEDICARE PPO BLUE (MEDICARE REPLACEMENT PPO) [id number] Samantha Granados [id number] Samantha Granados Notes Date Note Type Note Provider Name [...] ago. No sign recurrence. Wilfrido Medrano MD [address] [place] [address], [phone], [facility] 04/21/2020 10:18:08 05/08/2020 text/html Pt [...] ago. No sign recurrence. Wilfrido Medrano MD [address] [place] [address], [phone], [facility] 05/08/2020 17:53:02 08/12/2020 text/html Patient [...] ago. No sign recurrence. Wilfrido Medrano MD [address] [place] [address], [phone], [facility] 08/13/2020 07:49:48 05/04/2021 text/html This is a [employer] phone visit. Patient agreed to this visit [...] ago. No sign recurrence. Monae Edwards MD [address] [place] [address], [phone], [facility] 05/04/2021 12:21:31 11/03/2021 text/html Patient [...] ago. No sign recurrence. Monae Edwards MD [address] [place] [address], [phone], [facility] 11/03/2021 13:52:03 OBGyn Episode No OBEpisode recorded.
== END 2024-08-01 09:35 | disposition home or self-care (01) ==
LOC: HO.RHES 08:46
PROVIDERS: PCP Nurse Practitioner Family; Visit Provider Internal Medicine Rheumatology
DX: M06.9 Rheumatoid arthritis, unspecified (principal); Z79.899 Other long term (current) drug therapy; Z51.81 Encounter for therapeutic drug level monitoring
CPT/HCPCS: 99214

== ENCOUNTER → 2024-08-29 12:30 | Outpatient (BNVA) | payer BC, SELFPAY | PROVIDERS: PCP Nurse Practitioner Family; Visit Provider Student in an Organized Health Care Education/Training Program ==

== ENCOUNTER 2024-11-07 08:35 | Outpatient (AMB) | payer BC, SELFPAY ==
[2024-11-07 08:40] VITALS: BP 130/70; PULSE 89; O2SAT 97; BMI 19.4
--- NOTE | 2024-11-07 08:40 | A.OFFVIS_ITS ---
Vital Signs 11/07/24 08:40 Height 5 ft 7 in Weight 124 lb 1.924 oz BMI 19.4 BP 130/70 Blood Pressure Location Rt brachial Position Sitting Pulse 89 Pulse Source Pulse Oximeter Pulse Oximetry (%) 97 Oxygen Delivery Method Room Air Intake Visit Reasons: 3 Months Intake Note: Patient present follow up RA. Accompanied by: Self / Same As Patient Allergies acetaminophen (From Vicodin) Allergy (Mild, Verified 11/07/24 08:40) Nausea hydrocodone (From Vicodin) Allergy (Mild, Verified 11/07/24 08:40) Nausea lisinopril Adverse Reaction (Mild, Verified 11/07/24 08:40) lips swelling Sulfa (Sulfonamide Antibiotics) Adverse Reaction (Mild, Verified 11/07/24 08:40) Rash Medication List - Last Reconciled 11/07/24 by Dre Vasques MD adalimumab (Humira(CF) Pen) 40 mg (0.4 mL) subcut Q14D amlodipine 5 mg PO DAILY hydroxychloroquine 200 mg PO DIRECTED leflunomide 20 mg PO DAILY losartan 100 mg PO DAILY prednisone 5 mg PO DIRECTED sumatriptan succinate 100 mg PO DAILY PRN HPI HPI 3 Months: Details: Humira started 08/27 PFSH Medical History Tubulovillous adenoma Neoplasm of breast Osteochondropathy H/O neoplasm Degeneration, intervertebral disc, cervicothoracic Closed fracture of fifth metatarsal bone Anemia, chronic disease Actinic keratosis Migraine Breast cancer Surgical History H/O colonoscopy History of lumpectomy of right breast Family History Son Rheumatoid arthritis Father Diabetes Maternal Aunt Diabetes Paternal Grandmother Diabetes Social History Household Members: None Alcohol intake: current Alcohol intake frequency: a few times a week Patient Tobacco Use Status: Never used Tobacco Physical Exam Vital Signs: Last Vital Signs Pulse 89 11/07/24 08:40 BP 130/70 11/07/24 08:40 Pulse Ox 97 11/07/24 08:40 Oxygen Delivery Method Room Air 11/07/24 08:40 BMI result Body Mass Index 19.4 Const Other: General: Comfortable CVS: RRR Respiratory: clear to auscultation bilaterally. Good respiratory effort Skin: No lesions seen MSK: No tender joints. No synovitis. Bilateral hands ulnar deviation with volar subluxation MCPs. Heberden's and Mack's nodes. Normal ROM of UE and LE. No MTP tenderness. Bilateral bunions noted. nodule left Achilles tendon. R calus with coin size mass localized to 3rd MCP on sole +painful. Assessment & Plan Assessment & Plan (1) Rheumatoid arthritis: Comment: Inflammatory arthritis is controlled with addition of Humira. Humira is tolerated well. She has a nodule on left Achilles tendon of unclear etiology per patient previously imaged with an MRI. Patient has been planting elderberry and has read that it can affect RA. There has been no published data on direct linked with elderberry increasing RA activity. She is okay to use elderberry in her drinks. I recommended that she avoid OTC immune booster supplements at this time. Rheumatology history: Seropositive (RF, CCP) and Deforming. Onset around 2010. On Plaquenil since onset to present. SSZ for years but developed a skin rash, which was attributed to sulfasalazine and patient discontinued it. Patient does not believe sulfasalazine caused a rash. MTX briefly, discontinued due to exacerbation of migraines. Then she was started on leflunomide, which she has been for many years. Humira 08/2024- replacing leflunomide. Code(s): M06.9 - Rheumatoid arthritis, unspecified Category: Medical Qualifiers: Rheumatoid arthritis location: multiple sites Rheumatoid factor presence: unspecified presence Qualified Code(s): M06.9 - Rheumatoid arthritis, unspecified Plan: Continue hydroxychloroquine 200 mg 5 days a week and 400 mg twice a week. Eye exam September 2023 reviewed. Requesting eye exam [facility] in [place] d/c leflunomide 20 mg daily Continue Humira 40mg SC every 14 days Labs for drug monitoring on high-risk medication on high-risk medication due. LFTs 10/19/2024 wnl. 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 Category: Medical Plan: See above (3) Encounter for monitoring of hydroxychloroquine therapy: Code(s): Z51.81 - Encounter for therapeutic drug level monitoring; Z79.899 - Other senior living (current) drug therapy Category: Medical Plan: See above Orders: Orders Creatinine Today Z79.899 - Other senior living (current) drug therapy Medications: Discontinued leflunomide Discontinued Reason: Doctor's Order 20 mg PO DAILY 90 tabs 0RF Coding Level of Care Code Est Pt Level 4 (01641) Complex EM visit Add On G2211 Diagnoses Rheumatoid arthritis involving multiple sites, unspecified whether rheumatoid factor present M06.9 Rheumatoid arthritis location: multiple sites Rheumatoid factor presence: unspecified presence High risk medication use Z79.899 Encounter for monitoring of hydroxychloroquine therapy Z51.81; Z79.899
== END 2024-11-07 09:19 | disposition home or self-care (01) ==
LOC: HO.RHES 08:35
PROVIDERS: PCP Nurse Practitioner Family; Visit Provider Internal Medicine Rheumatology
DX: M06.9 Rheumatoid arthritis, unspecified (principal); Z79.899 Other long term (current) drug therapy; Z51.81 Encounter for therapeutic drug level monitoring
CPT/HCPCS: 99214

== ENCOUNTER 2024-11-07 08:35 | Outpatient (REF) | payer BC, SELFPAY ==
[2024-11-07 13:54] LABS: Estimated Glomerular Filt Rate > 60
== END 2024-11-07 08:36 | disposition home or self-care (01) ==
LOC: HO.HKASLDS 08:35
PROVIDERS: PCP Nurse Practitioner Family; Visit Provider Internal Medicine Rheumatology
DX: M06.9 Rheumatoid arthritis, unspecified (principal); Z79.899 Other long term (current) drug therapy
CPT/HCPCS: 36415; 82565

== ENCOUNTER 2025-02-12 10:10 | Outpatient (AMB) | payer BC, SELFPAY ==
--- NOTE | 2025-02-12 10:17 | A.OFFVIS_ITS ---
Vital Signs 02/12/25 10:18 Height 5 ft 7 in Weight 130 lb 4.691 oz BMI 20.4 BP 116/68 Blood Pressure Location Rt brachial Position Sitting Pulse 67 Pulse Source Pulse Oximeter Pulse Oximetry (%) 97 Oxygen Delivery Method Room Air Intake Visit Reasons: 3 Months Intake Note: Patient present follow up RA. 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 She experienced increased joint pains and then felt like she was getting sick. A week later she had URI symptoms that were mild and resolved. Joint symptoms have subsided. Denies having any morning stiffness or any new joint swelling. [facility] Medical History Tubulovillous adenoma Neoplasm of breast Osteochondropathy H/O neoplasm Degeneration, intervertebral disc, cervicothoracic Closed fracture of fifth metatarsal bone Anemia, chronic disease Actinic keratosis Migraine Breast cancer Surgical History H/O colonoscopy History of lumpectomy of right breast Family History Son Rheumatoid arthritis Father Diabetes Maternal Aunt Diabetes Paternal Grandmother Diabetes Social History Household Members: None Alcohol intake: current Alcohol intake frequency: a few times a week Patient Tobacco Use Status: Never used Tobacco Physical Exam Vital Signs: Last Vital Signs Pulse 67 02/12/25 10:18 BP 116/68 02/12/25 10:18 Pulse Ox 97 02/12/25 10:18 Oxygen Delivery Method Room Air 02/12/25 10:18 BMI result Body Mass Index 20.4 Const Other: General: Comfortable CVS: RRR Respiratory: clear to auscultation bilaterally. Good respiratory effort Skin: No lesions seen MSK: No tender joints. No synovitis. Bilateral hands ulnar deviation with volar subluxation MCPs. Heberden's and Mack's nodes. Normal ROM of UE and LE. No MTP tenderness. Bilateral bunions noted. nodule left Achilles tendon. Assessment & Plan Assessment & Plan (1) Rheumatoid arthritis: Comment: In remission on Humira and hydroxychloroquine. Rheumatology history: Seropositive (RF, CCP) and Deforming. Onset around 2010. On Plaquenil since onset to present. SSZ for years but developed a skin rash, which was attributed to sulfasalazine and patient discontinued it. Patient does not believe sulfasalazine caused a rash. MTX briefly, discontinued due to exacerbation of migraines. Then she was started on leflunomide, which she has been for many years. Humira 08/2024- replacing leflunomide. Code(s): M06.9 - Rheumatoid arthritis, unspecified Category: Medical Qualifiers: Rheumatoid arthritis location: multiple sites Rheumatoid factor presence: unspecified presence Qualified Code(s): M06.9 - Rheumatoid arthritis, unspecified Plan: Continue hydroxychloroquine 200 mg 5 days a week and 400 mg twice a week. Eye exam September 2023 reviewed. She had eye exam at [facility] in [place] in July for OCT and visual field test. 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 Category: Medical Plan: See above (3) Encounter for monitoring of hydroxychloroquine therapy: Code(s): Z51.81 - Encounter for therapeutic drug level monitoring; Z79.899 - Other nursing home (current) drug therapy Category: Medical Plan: See above Medications: Refilled adalimumab (Humira(CF) Pen) 40 mg (0.4 mL) subcut Q14D 2 ea 5RF hydroxychloroquine 200 mg PO DIRECTED 108 tabs 1RF Coding Level of Care Code Est Pt Level 4 (39751) Complex EM visit Add On G2211 Diagnoses Rheumatoid arthritis involving multiple sites, unspecified whether rheumatoid factor present M06.9 Rheumatoid arthritis location: multiple sites Rheumatoid factor presence: unspecified presence High risk medication use Z79.899 Encounter for monitoring of hydroxychloroquine therapy Z51.81; Z79.899
[2025-02-12 10:18] VITALS: BP 116/68; PULSE 67; O2SAT 97; BMI 20.4
== END 2025-02-12 11:02 | disposition home or self-care (01) ==
LOC: HO.RHES 10:11
PROVIDERS: PCP Nurse Practitioner Family; Visit Provider Internal Medicine Rheumatology
DX: M06.9 Rheumatoid arthritis, unspecified (principal); Z79.899 Other long term (current) drug therapy; Z51.81 Encounter for therapeutic drug level monitoring
CPT/HCPCS: 99214

== ENCOUNTER 2025-02-12 10:10 | Outpatient (REF) | payer BC, SELFPAY ==
[2025-02-12 13:50] LABS: MANUAL DIFF FLAG NO
[2025-02-12 14:12] LABS: Alanine Aminotransferase 19 U/L (0-31); Aspartate Amino Transferase 27 U/L (5-31); Estimated Glomerular Filt Rate > 60
[2025-02-12 14:32] LABS: Hematocrit 38.1 % (37.0-47.0); Hemoglobin 12.2 g/dl (12.0-16.0); Imm Gran Abs Auto 0.01 X10*3/uL (0.00-0.03); Imm Gran Pct Auto 0.2 % (0.0-0.4); Lymphocytes Absolute Auto 1.9 X10*3/uL (1.2-4.9); Mean Corpuscular HGB Conc 32.0 g/dl (31.0-35.0); Mean Corpuscular Hemoglobin 29.4 pg (27.0-33.0); Mean Corpuscular Volume 91.8 fL (80.0-98.0); NRBC Abs Auto 0.000 X10*3/uL (0.0-0.012); NRBC Pct Auto 0.0 /100WBC (0.0-0.2); Platelet Count 252 X10*3/uL (160-400); Red Blood Count 4.15 X10*6/uL (4.20-5.50); White Blood Count 6.7 X10*3/uL (4.8-10.8)
== END 2025-02-12 10:11 | disposition home or self-care (01) ==
LOC: HO.HKASLDS 10:10
PROVIDERS: PCP Nurse Practitioner Family; Visit Provider Internal Medicine Rheumatology
DX: M05.9 Rheumatoid arthritis with rheumatoid factor, unspecified (principal); Z51.81 Encounter for therapeutic drug level monitoring; Z79.899 Other long term (current) drug therapy
CPT/HCPCS: 36415; 82565; 84450; 84460; 85025; 85652; 86140